=== PATIENT | male | born 1950 | race Caucasian/White ===

== ENCOUNTER 2024-07-26 11:55 | Outpatient (AMB) | payer MEDICARE, SELFPAY ==
--- NOTE | 2024-07-26 11:58 | A.OFFVIS_ITS ---
Vital Signs 07/26/24 12:00 Height 5 ft 10 in Weight 210 lb BMI 30.1 BP 140/68 H Blood Pressure Location Lt brachial Position Sitting Respiration 16 Pulse 64 Pulse Source Pulse Oximeter Pulse Oximetry (%) 98 Oxygen Delivery Method Room Air Intake Visit Reasons: Headaches/neck pain Senior Abap Developer Required: No Allergies amlodipine [From Norvasc] Allergy (Unknown, Verified 07/26/24 12:02) BLISTERS azathioprine [From IMURAN] Allergy (Unknown, Verified 07/26/24 12:02) PARANOIA,SEVERE REACTION,N/V oxycodone [From PERCOCET] Allergy (Unknown, Verified 07/26/24 12:02) ITCHING ALL OVER Medication List - Last Reconciled 07/26/24 by Dorene Thakur LPN aspirin (Adult Aspirin Regimen) 81 mg PO DAILY carbamazepine ER 200 mg PO BID duloxetine 60 mg PO DAILY folic acid 1 mg PO DAILY lorazepam 1 mg PO DAILY PRN methotrexate sodium 20 mg PO QWEEK metoprolol tartrate 25 mg PO DAILY metronidazole 250 mg PO DAILY mirabegron ER 50 mg PO DAILY pregabalin 150 mg PO DAILY ramelteon 8 mg PO BEDTIME rosuvastatin 20 mg PO DAILY tamsulosin 0.4 mg PO BEDTIME HPI HPI Headaches/neck pain: Details: History of Present Illness The patient is a 73-year-old male presenting with worsening chronic neck pain and headaches, along with seeking management for shoulder pain. The chronic neck pain started two years ago and has increased in severity, radiating to the shoulders and occipital region with an intensity rating of 9/10. It disrupts his daily routine, particularly at night and in late mornings. He also manages rheumatoid arthritis, diagnosed 25 years ago and linked with his longstanding Crohn's disease of 55 years. Treatments with methotrexate and multiple cortisone injections to ameliorate shoulder pain due to bilateral rotator cuff tears have yielded temporary relief. Other therapeutic trials, including physical therapy and acupuncture, were minimally beneficial. The etiology of his neuropathy, primarily affecting feet and toes, remains unidentified despite evaluations. His headaches, predating the other issues, are acute and sharp with frontal presentation. He currently takes pregabalin, carbamazepine, and duloxetine. Pain Description - Onset: Chronic neck pain began two years ago - Location: Neck region radiating toward shoulders and occipital area - Intensity: 9/10 in severity - Timing: Worse at night and late morning - Interference: Impairs daily activities and functioning - Treatments: Currently on pregabalin, carbamazepine, duloxetine; prior cortisone injections for rotator cuff tears - Shoulder pain due to bilateral rotator cuff tears - Neuropathy in both feet, sensations affecting toes, worsened by socks - Headaches: Sharp, frontal, episodic Physical Exam - Musculoskeletal- Limited range of motion observed in bilateral shoulders, right more than left; unable to extend beyond 80 degrees Results - Tests: MRI and X-ray results of neck and brain, information not detailed in conversation Pain Management - Affect: Pain affects daily life, causing significant functional impairment - Analgesia: Current regimen includes pregabalin, carbamazepine, duloxetine, and frequent use of acetaminophen - Adverse Effects: No specific adverse effects noted - Activities of Daily Living: Difficulty performing routine activities; lacks strength; struggles with nurseryperson functions - Aberrant Drug Related Behaviors: No indication of misuse; adherence to medication regimen noted Physical Exam Vital Signs: Last Vital Signs Pulse 64 07/26/24 12:00 Resp 16 07/26/24 12:00 BP 140/68 H 07/26/24 12:00 Pulse Ox 98 07/26/24 12:00 Oxygen Delivery Method Room Air 07/26/24 12:00 BMI result Body Mass Index 30.1 Assessment & Plan Assessment & Plan (1) Cervical spinal stenosis: Code(s): M48.02 - Spinal stenosis, cervical region Category: Medical Plan Plan Administer a right shoulder injection targeting the supraspinatus and AC joint with ultrasound guidance. An MRI of the cervical spine is warranted for assessment of potential nerve compression. Continuing with cortisone injections is an option discussed, along with potential peripheral nerve stimulation. For headaches, the current medication regimen will continue, considering future interventions if necessary. Coordination with Dr. Jones for rheumatoid arthritis management is advised to evaluate potential adjustments. The approach was agreed upon, with careful attention to the risks associated with cortisone use. Patient was informed and verbally consented to the use of an ambient scribe for clinic note documentation during this visit. Discussion Notes I explained to the patient the likely contributors to his symptoms, including potential nerve compression and the role of inflammation in his rheumatoid arthritis and shoulder pain. Management options discussed include targeted cortisone injections and peripheral nerve stimulation, with risks such as cortisone-related side effects explained comprehensively. I also addressed the patient's current regimen for headaches, touching upon the potential for nerve blocks if needed. Diagnostic follow-ups with MRI imaging and discussions with his production supervisor trainee about arthritis management were recommended for a holistic approach. He understands and consents to the planned interventions and follow- ups outlined. Patient Instructions - Schedule and attend the MRI of the cervical spine - Continue current medication regimen - Stay alert to call for an appointment for the right shoulder injection - Follow up with Dr. Dietrich for rheumatoid arthritis management - Monitor for any changes in symptoms or medication side effects - Report any increase in pain or new neurological symptoms immediately - Avoid high-dosage of acetaminophen to prevent potential rebound headaches - Use prescribed medications as directed; avoid additional analgesics unless advised Orders: Orders MR cervical spine wo con 07/26/24 M48.02 - Spinal stenosis, cervical region Coding Level of Care Code New Pt Level 4 (99231) Diagnoses Cervical spinal stenosis M48.02
[2024-07-26 12:00] VITALS: BP 140/68; PULSE 64; RESP 16; O2SAT 98; BMI 30.1
--- OUTSIDE RECORDS SUMMARY | 2024-07-26 13:56 | XMS_ITS | Encounter Summary ---
Author Organization [facility] Address [address] [address] Phone Care Team Providers Care Machinery Engineer Name Role Phone Don Escalante MD Primary Care Provider [phone] Encounter Details Date Type Department Care Team ([facility] st Contact Info) Description 03/28/2023 Procedure Pass [facility] [address] [place] [address] Social History Tobacco Use Types Packs/Day Years Used Date Smoking Tobacco: Never Alcohol Use Standard Drinks/Week Comments No 0 (1 standard drink = 0.6 oz pur e alcohol) Education Answer Date Recorded Are you interested in more education? Not on shasta e 08/19/2022 Are you concerned about learning? Not on file 08/19/2022 No 08/19/2022 No 08/19/2022 Digital Access Answer Date Recorded No 09/19/2022 No 09/19/2022 Reliable internet access at home? Not on file 09/19/2022 Device with a working camera? Not on file Sex and Gender Information Value Date Recorded Sex Assigned at Male 01/23/2023 2:12 PM EDT Gender Identity Male 01/23/2023 2:12 PM EDT Sexual Orientation Straight 01/23/2023 2: 12 PM EDT documented as of this encounter Plan of Treatment Not on file documented as of this encounter Visit Diagnoses Not on filedocumented in this encounter Additional Health Concerns Infection Onset Date Last Indicated Resolved Time CDiff-Risk 09/09/2023 09/09/2023 09/09/2023 2:54 PM EDT documented as of this encounter Care Teams Machinery Engineer Relationship Specialty Start Date End Date Don Escalante MD [address] [place] [id number] PCP - General Internal Medicine 01/23/23 documented as of this encounter Additional Source Comments The information contained in this document represents components of the legal health record. It is not the complete legal health record.[facility]
--- OUTSIDE RECORDS SUMMARY | 2024-07-26 13:56 | XMS_ITS | Encounter Summary ---
Author Organization [facility] Address [address] [employer] [facility] [address] [place] [address] Phone Care Team Providers Care Fire Alarm Repairer Name Role Phone Don Escalante MD Primary Care Provider [phone] Encounter Details Date Type Department Care Team (Late st Contact Info) Description 09/05/[address] [facility] [address] [place] [address] Social History Tobacco Use Types Packs/Day Years [...] with a working camera? Not on file Intimate Partner Violence Answer Date R ecorded Are you denied basic needs s uch as food, clothing, or medical care? No 09/05/2023 In the past 12 months have y ou been in a relationship with a person who hurts, threatens, or tries to control you? No 09/05/2023 Are you denied basic needs s uch as food, clothing, or medical care? No 09/05/2023 In the past 12 months have y ou been in a relationship with a person who hurts, threatens, or tries to control you? No 09/05/2023 Sex and Gender Information Value Date Recorded [...] documented as of this encounter Care Teams Fire Alarm Repairer Relationship Specialty Start Date End Date Don Escalante MD [address] [place] [address] PCP - General Internal Medicine 01/23/23 documented as of this encounter Additional Source Comments The information contained in this document represents components of the legal health record. It is not the complete legal health record.[facility]
--- OUTSIDE RECORDS SUMMARY | 2024-07-26 13:56 | XMS_ITS | Encounter Summary ---
Author Organization [facility] Address [address] [employer] [facility] [address] [place] [address] Phone Care Team Providers Care Company Truck Driver Name Role Phone Don Escalante MD Primary Care Provider [phone] Encounter Details Date Type Department Care Team (Late st Contact Info) Description 06/29/2023 Procedure Pass [address] [address] Social History Tobacco Use Types Packs/Day Years [...] documented as of this encounter Care Teams Company Truck Driver Relationship Specialty Start Date End Date Don Escalante MD [address] [place] [address] [place] [id number] PCP - General Internal Medicine 01/23/23 documented as of this encounter Additional Source Comments The information contained in this document represents components of the legal health record. It is not the complete legal health record.[facility]
--- OUTSIDE RECORDS SUMMARY | 2024-07-26 13:56 | XMS_ITS | Encounter Summary ---
Author Organization [facility] Address [address] [employer] [facility] [address] [place] [address] Phone Care Team Providers Care Pulmonary Care Nurse Name Role Phone Don Escalante MD Primary Care Provider [phone] Encounter Details Date Type Department Care Team (Late st Contact Info) Description 03/28/2023 Procedure Pass [facility] [address] [place] [address] Social History Tobacco Use Types Packs/Day Years [...] documented as of this encounter Care Teams Pulmonary Care Nurse Relationship Specialty Start Date End Date Don Escalante MD [address] [place] [address] [place] [id number] PCP - General Internal Medicine 01/23/23 documented as of this encounter Additional Source Comments The information contained in this document represents components of the legal health record. It is not the complete legal health record.[facility]
--- OUTSIDE RECORDS SUMMARY | 2024-07-26 13:56 | XMS_ITS | Encounter Summary ---
Author Organization [facility] Address [address] [place] [address] Care Team Providers Care Telephone Maintainer Name Role Phone Don Escalante MD Primary Care Provider [phone] Encounter Details Date Type Department Care Team (Late st Contact Info) Description 07/23/2024 Lab Requisition [facility] [address] [facility] [place] [phone] Gianni Jones MD [address] [place] [phone] Rheumatoid arthritis, unspecified Social History Tobacco Use Types Packs/Day Years Used Date Smoking Tobacco: Never Smokeless Tobacco: Never Alcohol Use Standard Drinks/Week Comments No 0 (1 standard drink = 0.6 oz pur e alcohol) Sex and Gender Information Value Date Recorded Sex Assigned at Male 05/28/2024 10:57 AM EST Legal Sex Male 6:21 AM EST Gender Identity Male 05/28/2024 10:57 AM EST Sexual Orientation Straight 05/28/2024 10 :57 AM EST documented as of this encounter Plan of Treatment Upcoming Encounters Date Type Department Care Team (Late st Contact Info) Description 09/17/2024 11:30 AM EDT Appointment [facility] [address] [phone] documented as of this encounter Procedures Procedure Name Priority Date/Time Associated Diagnosis Comments SST - GOLD Routine 07/23/2024 12:05 PM EDT Rheumatoid arthritis, unspecified CBC WITH AUTO DIFFERENTIAL Routine 07/23/2024 12:05 PM EDT Rheumatoid arthritis, unspecified CREATININE, SERUM Routine 07/23/2024 12: 05 PM EDT Rheumatoid arthritis, unspecified SEDIMENTATION RATE Routine 07/23/2024 12 :05 PM EDT Rheumatoid arthritis, unspecified CBC AND DIFFERENTIAL Routine 07/23/2024 12:05 PM EDT Rheumatoid arthritis, unspecified C-REACTIVE PROTEIN Routine 07/23/2024 12 :05 PM EDT Rheumatoid arthritis, unspecified ALANINE AMINOTRANSFERASE Routine 025 12:05 PM EDT Rheumatoid arthritis, unspecified ASPARTATE AMINOTRANSFERASE Routine 07/23/2024 12:05 PM EDT Rheumatoid arthritis, unspecified ALBUMIN Routine 07/23/2024 12:05 PM EDT Rheumatoid arthritis, unspecified documented in this encounter Results * SST tube (07/23/2024 12:05 PM EDT) Pathologist [facility] Extra Tube Hold for add-ons. 07/23/2024 3:01 PM EDT [facility] Comment:Auto resulted. Blood Venous blood specimen / Unknown 07/23/2024 12:05 PM EDT 07/23/2024 1:38 PM EDT us Gianni Jones MD LAB BLOOD ORDERABLES Final Resu lt [facility] [address] [place] [address], * (ABNORMAL) CBC auto differential (07/23/2024 12:05 PM EDT) WBC 6.6 4.8 - 10.8 K/mcL LAB HEMETOLOGY METHOD 07/23/2024 1:53 PM [facility] RBC 3.80(L) 4.50 - 5.50 M/mcL LAB HEMETOLOGY METHOD 07/23/2024 1:53 PM [facility] Hemoglobin 13.3(L) 13.5 - 17.5 g/dL LAB HEMETOLOGY METHOD 07/23/2024 1:53 PM [facility] Hematocrit 37.9(L) 42.0 - 54.0 % LAB HEMETOLOGY METHOD 07/23/2024 1:53 PM [facility] MCV 100.8(H) 79.0 - 98.0 FL LAB HEMETOLOGY METHOD 07/23/2024 1:53 PM [facility] MCH 35.4(H) 27.0 - 32.0 pcg LAB HEMETOLOGY METHOD 07/23/2024 1:53 PM [facility] MCHC 35.1 32.0 - 37.0 g/dL LAB HEMETOLOGY METHOD 07/23/2024 1:53 PM [facility] RDW 12.8 11.0 - 15.0 % LAB HEMETOLOGY METHOD 07/23/2024 1:53 PM [facility] Platelets 233 130 - 400 K/mcL LAB HEMETOLOGY METHOD 07/23/2024 1:53 PM [facility] MPV 9.8 7.0 - 11.0 FL LAB HEMETOLOGY METHOD 07/23/2024 1:53 PM [facility] NRBC 0.0 <1.0 % LAB HEMETOLOGY METHOD 07/23/2024 1:53 PM [facility] NRBC Absolute 0.00 <0.10 K/mcL LAB HEMETOLOGY METHOD 07/23/2024 1:53 PM [facility] Neutrophils Relative 67.8 % LAB HEMETOLOGY METHOD 07/23/2024 1:53 PM EDT [facility] Lymphocytes Relative 21.9 % LAB HEMETOLOGY METHOD 07/23/2024 1:53 PM EDT [facility] Monocytes Relative 7.0 % LAB HEMETOLOGY METHOD 07/23[facility]2024 [facility] Eosinophils Relative 2.7 % LAB HEMETOLOGY METHOD 07/23/2024 1:53 [facility] Basophils Relative 0.3 % LAB HEMETOLOGY METHOD 07/23/2024 1:53 [facility] Immature Granulocytes Relative 0.3 % LAB HEMETOLOGY METHOD 07/23/2024 1:53 PM [facility] Neutrophils Absolute 4.46 1.50 - 7.00 K/mcL LAB HEMETOLOGY METHOD 07/23/2024 1:53 PM [facility] Lymphocytes Absolute 1.44 1.00 - 5.00 K/mcL LAB HEMETOLOGY METHOD 07/23/2024 1:53 [facility] Monocytes Absolute 0.46 0.20 - 1.00 K/mcL LAB HEMETOLOGY METHOD 07/23/2024 1:53 PM [facility] Eosinophils Absolute 0.18 0.00 - 0.50 K/mcL LAB HEMETOLOGY METHOD 07/23/2024 1:53 PM [facility] Basophils Absolute 0.02 0.00 - 0.20 K/mcL LAB HEMETOLOGY METHOD 07/23/2024 1:53 PM [facility] Immature Granulocytes Absolute 0.02 0.00 - 0.03 K/mcL LAB HEMETOLOGY METHOD 07/23/2024 1:53 PM [facility] Blood Venous blood specimen / Unknown 07/23/2024 12:05 PM EDT 07/23/2024 1:38 PM EDT us Gianni Jones MD LAB BLOOD ORDERABLES Final Resu lt Performing Organization Address [facility]/ZIP Co de Phone Number [facility] [address] [place] [address], [place] [phone] * Alanine aminotransferase (07/23/2024 12:05 PM EDT) ALT (SGPT) 40 10 - 60 unit/L LAB CHEMISTRY METHOD 07/23/2024 4:53 PM EDT [facility] Blood Venous blood specimen / Unknown 07/23/2024 12:05 PM EDT 07/23/2024 1:38 PM EDT us Gianni Jones MD LAB BLOOD ORDERABLES Final Resu lt Performing Organization Address [facility] Co de Phone Number [facility] [address] [place] [address], [place] [phone] * Aspartate aminotransferase (07/23/2024 12:05 PM EDT) AST (SGOT) 22 10 - 42 unit/L LAB CHEMISTRY METHOD 07/23/2024 5:09 PM EDT [facility] Blood Venous blood specimen / Unknown 07/23/2024 12:05 PM EDT 07/23/2024 1:38 PM EDT us Gianni Jones MD LAB BLOOD ORDERABLES Final Resu lt Performing Organization Address [facility]/ZIP Co de Phone Number [facility] [address] [place] [address], [place] [phone] * Albumin (07/23/2024 12:05 PM EDT) Albumin 3.8 3.2 - 5.0 g/dL LAB CHEMISTRY METHOD 07/23/2024 4:53 PM EDT [facility] Blood Venous blood specimen / Unknown 07/23/2024 12:05 PM EDT 07/23/2024 1:38 PM EDT us Gianni Jones MD LAB BLOOD ORDERABLES Final Resu lt Performing Organization Address [facility] Co de Phone Number [facility] [address] [place] [address], [place] [phone] * Creatinine (07/23/2024 12:05 PM EDT) Creatinine 0.82 0.70 - 1.30 mg/dL LAB CHEMISTRY METHOD 07/23/2024 4:53 PM EDT [facility] eGFR 93 >=60 mL/min/1. 73m2 LAB CHEMISTRY METHOD 07/23/2024 4:53 PM EDT [facility] Comment:Calculation based on the??Chronic Kidney Disease Epidemiology Collaboration (CKD-EPI) equation refit??without adjustment for race. Blood Venous blood specimen / Unknown 07/23/2024 12:05 PM EDT 07/23/2024 1:38 PM EDT us Gianni Jones MD LAB BLOOD ORDERABLES Final Resu lt Performing Organization Address [facility] Co de Phone Number [facility] [address] [place] [address], [place] [phone] * C-reactive protein (07/23/2024 12:05 PM EDT) C-Reactive Protein <0.29 <=0.50 mg/dL LAB CHEMISTRY METHOD 07/23/2024 4:53 PM EDT [facility] Blood Venous blood specimen / Unknown 07/23/2024 12:05 PM EDT 07/23/2024 1:38 PM EDT us Gianni Jones MD LAB BLOOD ORDERABLES Final Resu lt Performing Organization Address City/State/[facility] Co de Phone Number [facility] [address] [place] [address], [place] [phone] * Sedimentation rate (07/23/2024 12:05 PM EDT) Sed Rate 11 0 - 20 mm/hr LAB HEMETOLOGY METHOD 07/23/2024 2:16 PM EDT [facility] Blood Venous blood specimen / Unknown 07/23/2024 12:05 PM EDT 07/23/2024 1:38 PM EDT Gianni Jones MD LAB BLOOD ORDERABLES Final Resu lt Performing Organization Address [facility] Co de Phone Number [facility] [address] [place] [address], documented in this encounter Visit Diagnoses Diagnosis Rheumatoid arthritis, unspecified documented in this encounter Care Teams Telephone Maintainer Relationship Specialty Start Date End Date Don Escalante MD [address] [place], [place] [address] [address] PCP - General Internal Medicine 04/02/24 documented as of this encounter
--- OUTSIDE RECORDS SUMMARY | 2024-07-26 13:56 | XMS_ITS | Clinical Summary ---
Author Organization [facility] Address [address] [address] Phone Care Team Providers Care Lacquer Maker Name Role Phone Don Escalante MD Primary Care Provider [phone] Allergies Active Allergy Reactions Criticality Noted Date Comments Imuran (Azathioprine) 03/31/2016 Norvasc (Amlodipine) 03/31/2016 Percocet (Oxycodone-Acetaminophen) 1 06/01/2015 Medications Medication Sig Dispensed Refills Start Date End Date Status metroNIDAZOLE (FLAGYL) 250 MG tablet Take 250 mg by mouth daily. Active rosuvastatin (CRESTOR) 20 MG tablet Take 20 mg by mouth daily. Active omeprazole (PRILOSEC) 20 MG capsule Take 20 mg by mouth 2 (two) times a day. Active cholecalciferol (VITAMIN D3) 1,000 unit tablet Take 1,000 Units by mouth 2 (two) times a day. Active DOCOSAHEXANOIC ACID/EPA (FISH OIL ORAL) Take 1,200 mg by mouth 2 (two) times a day. Active multivitamins with minerals- folic acid-lycopene (MEN'S ONE-A-DAY) 400-300 mcg Tab Take 1 tablet by mouth daily. Active CALCIUM CARBONATE/VITAMIN D3 (CALCIUM 600 + D,3, ORAL) Take by mouth daily. Active ascorbic acid, vitamin C, (VITAMIN C) 500 MG tablet Take 1,000 mg by mouth daily. Active folic acid (FOLVITE) 1 MG tablet Take 1 mg by mouth every morning. Active fluoride, sodium, (PREVIDENT 5000 BOOSTER) 1.1 % Pste 12/05/2022 Activ e lactulose bulk (CONSTULOSE) 10 gram/15 mL solution 10 g 2 (two) times a day. 01/13/2023 Active metoprolol tartrate (LOPRESSOR) 25 MG tablet Take 25 mg by mouth 2 (two) times a day. 01/30/2023 Active tamsulosin (FLOMAX) 0.4 mg Cap 0.4 mg nightly at bedtime. 02/01/2023 Active TYRVAYA 0.03 mg/spray sprm daily. 01/26/2023 Active psyllium (KONSYL) Pack Take 1 packet by mouth 3 (three) times a day. Active aspirin 81 mg chewable tablet Take 1 tablet (81 mg total) by mouth daily. 03/31/2023 Active acetaminophen (TYLENOL) 325 mg tablet Take 2 tablets (650 mg total) by mouth every 6 (six) hours as needed. 0 03/29/2023 Active pregabalin (LYRICA) 150 MG capsule Take 150 mg by mouth 2 (two) times a day. 08/15/2023 Active DULoxetine (CYMBALTA) 60 MG capsule Take 60 mg by mouth 2 (two) times a day. 08/20/2023 Active mineral oil liquid Take 30 mL by mouth daily as needed for constipation. Active ramelteon (ROZEREM) 8 mg tablet Take 8 mg by mouth nightly at bedtime. 08/02/2023 Active alpha lipoic acid 300 mg Cap Take 600 mg by mouth nightly at bedtime. Active LORazepam (ATIVAN) 1 MG tablet Take 1 mg by mouth every 6 (six) hours as needed. 09/01/2023 Active mirabegron (MYRBETRIQ) 50 mg Tb24 Take 50 mg by mouth nightly at bedtime. 08/25/2023 Active methotrexate 2.5 MG Oral tablet Take 20 mg by mouth once a week. 08/20/2023 Active memantine (NAMENDA) 10 MG tablet Take 10 mg by mouth 2 (two) times a day. 08/16/2023 Active melatonin 10 mg Tab Take 30 mg by mouth nightly at bedtime. Active furosemide (LASIX) 40 MG tablet Take 40 mg by mouth daily. Active traZODone (DESYREL) 50 MG tablet Take 1 tablet (50 mg total) by mouth nightly at bedtime as needed (insomnia). 7 tablet 09/14/2023 Active polyethylene glycol (MIRALAX) 17 gram packet Take 17 g by mouth daily. 20 packet 09/14/2023 Active bisacodyl (DULCOLAX) 5 mg EC tablet Take 1 tablet (5 mg total) by mouth daily as needed for constipation. 20 tablet 09/14/2023 Active Active Problems Problem Noted Date Diagnosed Date Leg pain 09/05/2023 Lumbar foraminal stenosis 03/28/2023 CAD (coronary artery disease) 03/21/2023 Crohn's disease 03/21/2023 Adjustment disorder with anxiety 02/15/2023 02/15/2023 Arteriosclerosis of coronary artery 02/15/2023 02/15/2023 BPH (benign prostatic hyperplasia) 02/15/2023 02/15/2023 GERD (gastroesophageal reflux disease) 02/15/2023 Hyperlipidemia 02/15/2023 02/15/2023 Hypertension 02/15/2023 02/15/2023 Myocardial infarction 02/15/2023 02/15/2023 Neuropathy 02/15/2023 02/15/2023 Rheumatoid arthritis 02/15/2023 02/15/2023 Other fatigue 07/22/2022 02/15/2023 Crohn disease 10/15/2021 02/15/2023 Social History Tobacco Use Types Packs/Day Years Used Date Smoking Tobacco: Never Tobacco Cessation:Counseling Given: Not Answered Alcohol Use Standard Drinks/Week Comments No 0 [...] Orientation Straight 01/23/2023 2: 12 PM EDT Last Filed Vital Signs Vital Sign Reading Time Taken Comments Blood Pressure 109/69 09/14/2023 1:35 PM EDT Pulse 98 09/14/2023 1:35 PM EDT Temperature 36.7 ??C (98 ??F) 09/14/2023 1:35 PM EDT Respiratory Rate 18 09/14/2023 1:35 PM EDT Oxygen Saturation 100% 09/14/2023 1:35 PM EDT Inhaled Oxygen Concentration - - Weight 91.2 kg (201 lb) 12/06/2023 1:02 PM EDT Height 177.8 cm (5' 10 ) 12/06/2023 1:02 PM EDT Body Mass Index 28.84 12/06/2023 1:02 PM EDT Plan of Treatment Health Maintenance Due Date Last Done Comments DEPRESSION SCREENING 1962 HEPATITIS C SCREENING 1968 ZOSTER VACCINES (1 of 2) 1969 COLOGUARD 09/16/1995 COLONOSCOPY 09/16/1995 COLORECTAL CANCER SCREENING 09/16/1995 FIT TEST 09/16/1995 FOBT 09/16/1995 SIGMOIDOSCOPY 09/16/1995 VIRTUAL COLONOSCOPY 09/16/1995 Adult Td,Tdap Booster 08/27/2020 08/27/2010, 000 BLOOD PRESSURE 08/17/2023 02/15/2023 INFLUENZA VACCINE (#1) 2023 , 02/07/2022, 01/02/2021, Additional history exists COVID-19 VACCINE ( season) 2023 01/23/2023, 02/07/2022, 08/16/2021, Additional history exists PNEUMOCOCCAL VACCINES (50+ years) Completed 04/02/2018, 07/15/2014, 03/10/2010 RSV VACCINE Completed 05/26/2023 SMOKING STATUS SCREENING (Once After 26 Yrs) Completed 12/06/2023 HEPATITIS A VACCINES Aged Out No long er eligible based on patient's age to complete this topic HIB VACCINES Aged Out No longer eligi ble based on patient's age to complete this topic MENINGOCOCCAL VACCINES (ACWY) Aged Out No longer eligible based on patient's age to complete this topic Medical Devices Implanted Type Area Patient Financial Rep Device Identifier Shelf Expiration Date Model / Serial / Lot Spine Lonny 5.5x45mm Expedium Titanium Curved Lordotic Line Thoracolumbar - [id number] Implanted:Qty: 2 on 09/05/2023 by Mega Peterson MD at [facility] N/A: Back [facility] DEPUY SYNTHES SPINE 09/05/2023 [id number] / / Coronary Stent Pliafx Prime 5.0cc Freeze Dried - [id number] Implanted:Qty: 1 on 09/05/2023 by Mega Peterson MD at [facility] N/A: Back [facility] [id number] 04/07/2028 BL-1800-05 / [id number] / [id number] Screw Spinal 7x40mm Polyaxial Expedium Verse 5.5 - [id number] Implanted:Qty: 1 on 09/05/2023 by Mega Peterson MD at [facility] N/A: Back [facility] DEPUY SYNTHES SPINE [id number] / / Screw Spinal 7x45mm Polyaxial Expedium Verse 5.5 - [id number] Implanted:Qty: 1 on 09/05/2023 by Mega Peterson MD at [facility] N/A: Back [employer] DEPUY SYNTHES SPINE [id number] / / Screw Spinal 7x50mm Polyaxial Expedium Verse 5.5 - [id number] Implanted:Qty: 1 on 09/05/2023 by Mega Peterson MD at [facility] N/A: Back [facility] DEPUY SYNTHES SPINE [id number] / / Screw Implanted:Qty: 1 on 09/05/2023 by Mega Peterson MD at [facility] N/A: Back DEPUY SPINE Depuy Spine Caps Implanted:Qty: 4 on 09/05/2023 by Mega Peterson MD at [facility] Bilater al: Back 09/05/2023 / [id number] / Depuy Spine Implanted:Qty: 1 on 09/05/2023 by Mega Peterson MD at [facility] N/A: Back 09/05/2023 / [id number] / Advance Directives For more information, please contact: [phone] (9AM - 5PM [facility], Monday-Monday) Documents on File Type Date Recorded Patient Gis Database Administrator Expl anation Healthcare Proxy 09/05/2023 * Full Code (Latest Code Status on File) Date Activated Date Inactivated Comments 03/28/2023 8:10 PM Question Answer Comments Code Status Confirmed With: Patient Care Teams Lacquer Maker Relationship Specialty Start Date End Date Don Escalante MD [address] [place] [address] [place]E [address] PCP - General Internal Medicine 01/23/23 Additional Source Comments The information contained in this document represents components of the legal health record. It is not the complete legal health record.[facility]
--- OUTSIDE RECORDS SUMMARY | 2024-07-26 13:56 | XMS_ITS | Encounter Summary ---
Author Organization [facility] Address [address] [facility] [address] [place] [address] Phone Care Team Providers Care Insecticide Supervisor Name Role Phone Don Escalante MD Primary Care Provider [phone] Encounter Details Date Type Department Care Team (Late st Contact Info) Description 02/16/2023 Telephone [facility] Department of Neurosurgery [address] [place] [address] Aniket Rome [address] [place] [address] [email or web address] Social History Tobacco Use Types Packs/Day Years [...] documented as of this encounter Care Teams Insecticide Supervisor Relationship Specialty Start Date End Date Don Escalante MD [address] [place] [address] PCP - General Internal Medicine 01/23/23 documented as of this encounter Additional Source Comments The information contained in this document represents components of the legal health record. It is not the complete legal health record.[facility]
--- OUTSIDE RECORDS SUMMARY | 2024-07-26 13:56 | XMS_ITS | Encounter Summary ---
Author Organization [facility] Address [address] [place] [address] Care Team Providers Care Floor Representative Name Role Phone Don Escalante MD Primary Care Provider [phone] Encounter Details Date Type Department Care Team [...] shoulder and reports he has ripped tendons. Hasa follow up w . Medications, allergies, and assessment reviewed. RIGHT upper [...] Info) Description 09/17/2024 11:30 AM EDT Appointment [facility] [address] [phone] documented as of this encounter Visit Diagnoses Not on filedocumented in this encounter Care Teams Floor Representative Relationship Specialty Start Date End Date Don Escalante MD PCP - General Internal Medicine 05/11/21 04/01/24 documented as of this encounter
--- OUTSIDE RECORDS SUMMARY | 2024-07-26 13:56 | XMS_ITS | Clinical Summary ---
Author Organization [facility] Address [address] [place] [address] Care Team Providers Care Customer Retention Specialist Name Role Phone Don Escalante MD Primary Care Provider [phone] Allergies Active Allergy Reactions Criticality Noted Date Comments Amlodipine 10/15/2021 Other reaction(s): HUGE BLISTER BOTH FEET EDEMA Azathioprine High 10/15/2021 Other reaction(s): high fever Oxycodone-Acetaminophen High 10/15/2021 Other reaction(s): itchy all over Medications Medication Sig Dispensed Refills Start Date End Date Status metyraPONE (Metopirone) 250 MG capsule Take 25 mg by mouth 2 (two) times a day. 0 04/06/2020 Active pregabalin (LYRICA) capsule 150 mg Take 150 mg by mouth. 0 04/06/2020 Active DULoxetine (CYMBALTA) DR capsule 30 mg 0 09/21/2021 Active folic acid (FOLVITE) tablet 1 mg 0 10/02/2021 Active metroNIDAZOLE (FLAGYL) 250 MG tablet 0 09/28/2021 Active rosuvastatin (CRESTOR) tablet 20 mg 0 08/05/2021 Active LORazepam (ATIVAN) 1 MG tablet 0 10/04/2021 Active aspirin 81 MG chewable tablet Chew 81 mg by mouth daily. 0 Active Active Problems Problem Noted Date Diagnosed Date Crohn disease 10/15/2021 Social History Tobacco Use Types Packs/Day Years Used Date Smoking Tobacco: Never Assessed Sex and Gender Information Value Date Recorded Sex Assigned at Male 10/12/2021 10:28 AM EDT Gender Identity Not on file Sexual Orientation Not on file Job Start Date Occupation Industry Not on file Not on file Not on file Last Filed Vital Signs Vital Sign Reading Time Taken Comments Blood Pressure 135/70 02/06/2024 11:02 AM EDT Pulse 68 02/06/2024 11:02 AM EDT Temperature 36.7 ??C (98 ??F) 02/06/2024 11:02 AM EDT Respiratory Rate 18 12/12/2023 11:15 AM EDT Oxygen Saturation 100% 02/06/2024 11:02 AM EDT Inhaled Oxygen Concentration - - Weight 93 kg (205 lb) 02/06/2024 11:02 AM EDT PE R PT Height 177.8 cm (5' 10 ) 08/22/2023 11:03 AM EDT Body Mass Index 29.41 08/22/2023 11:03 AM EDT Plan of Treatment Health Maintenance Due Date Last Done Comments Hepatitis C Screening 1950 COVID-19 Vaccine (#1) 03/18/1951 Depression Screening 1962 Preventative Health Evaluation 1968 Colon Cancer Screening (Colonoscopy) 09/16/1995 Shingrix-Zoster Vaccine (1 of 2) 2000 Fall Risk Assessment 09/16/2015 DTap / Tdap / Td (2 - Td or Tdap) 08/27/2020 08/27/2010 RSV Adult > 60+ Yrs or (1 - 1-dose 75+ series) 2025 Pneumococcal Vaccine Completed 04/02/2018, 07/15/2014, 03/10/2010 Influenza Vaccine Completed 12/28/2023, , 01/31/2018, Additional history exists Hepatitis B Vaccines Aged Out No long er eligible based on patient's age to complete this topic RSV Ped < 20 months Aged Out No longe r eligible based on patient's age to complete this topic Care Teams Customer Retention Specialist Relationship Specialty Start Date End Date Don Escalante MD [address] [facility] [place] [address] PCP - General Internal Medicine 06/27/23
--- OUTSIDE RECORDS SUMMARY | 2024-07-26 13:56 | XMS_ITS | Encounter Summary ---
Author Organization [facility] Address [address] [employer] [facility] [address] [place] [address] Phone Care Team Providers Care Truck Service Technician Name Role Phone Don Escalante MD Primary Care Provider [phone] Encounter Details Date Type Department Care Team (Late st Contact Info) Description 09/05/2023 Procedure Pass [facility] [address] [place] [address] Social History Tobacco Use Types Packs/Day Years [...] documented as of this encounter Care Teams Truck Service Technician Relationship Specialty Start Date End Date Don Escalante MD [address] [place] [address] PCP - General Internal Medicine 01/23/23 documented as of this encounter Additional Source Comments The information contained in this document represents components of the legal health record. It is not the complete legal health record.[facility]
--- OUTSIDE RECORDS SUMMARY | 2024-07-26 13:56 | XMS_ITS | Encounter Summary ---
Author Organization [facility] Address [address] [place] [address] Care Team Providers Care Vocational Adviser Name Role Phone Don Escalante MD Primary Care Provider [phone] Reason for Visit * Reason Onset Date Comments Results 07/26/2024 Encounter Details Date Type Department Care Team (Late st Contact Info) Description 07/26/2024 Telephone Internal Medicine - [facility] [address] [facility] [place] [phone] Dee Tracy [place] Results Social History Tobacco Use Types Packs/Day Years [...] AM EST documented as of this encounter Progress Notes * Don Escalante MD - 07/26/2024 11:48 AM EDT No he doesn't. He can take OTC Vit b 12 supplement for maintenance. * Dee Tracy MA - 07/26/2024 10:16 AM EDT Spoke with patient, he is inquiring if he still needs the B12 injections given his results from 07/23. Please advise. documented in this encounter Plan of Treatment Upcoming Encounters Date Type Department Care Team (Late st Contact Info) Description 09/17/2024 11:[address] [facility] [address] [place] [address] documented as of this encounter Visit Diagnoses Not on filedocumented in this encounter Care Teams Vocational Adviser Relationship Specialty Start Date End Date Don Escalante MD [facility] [place] [address] PCP - General Internal Medicine 04/02/24 documented as of this encounter
--- OUTSIDE RECORDS SUMMARY | 2024-07-26 13:56 | XMS_ITS | Encounter Summary ---
Author Organization [facility] Address [address] [address] Phone Care Team Providers Care Automobile Body Customizer Name Role Phone Don Escalante MD Primary Care Provider [phone] Encounter Details Date Type Department Care Team (Late st Contact Info) Description 09/05/2023 Procedure Pass [facility] Periop [address] [place] [address] Social History Tobacco Use Types Packs/Day Years [...] documented as of this encounter Care Teams Automobile Body Customizer Relationship Specialty Start Date End Date Don Escalante MD [address] [place] [address] PCP - General Internal Medicine 01/23/23 documented as of this encounter Additional Source Comments The information contained in this document represents components of the legal health record. It is not the complete legal health record.[facility]
--- OUTSIDE RECORDS SUMMARY | 2024-07-26 13:56 | XMS_ITS | Clinical Summary ---
Author Organization [facility] [place] [address] Phone Care Team Providers Care Bologna Lacer Name Role Phone Don Escalante MD Primary Care Provider [phone] Allergies Active Allergy Reactions Criticality Noted Date Comments Azathioprine High 05/28/2024 Amlodipine 05/28/2024 Lumps all over feet Medications lidocaine (LIDODERM) 5 % patch Place 1 patch on the skin. 4 Active lactulose (CHRONULAC) solution Take 15 mL (10 g total) by mouth 3 (three) times a day. 946 mL 11 4 Active metroNIDAZOLE (FLAGYL) 250 mg tablet TAKE ONE TABLET BY MOUTH EVERY DAY 30 tablet 5 4 Active rosuvastatin (CRESTOR) 20 mg tablet TAKE 1 TABLET BY MOUTH DAILY 90 tablet 1 4 Active metoprolol tartrate (LOPRESSOR) 25 mg tablet TAKE ONE TABLET BY MOUTH TWO TIMES A DAY 180 tablet 1 4 Active carBAMazepine (TEGretol) 200 mg tablet Take 1 tablet (200 mg total) by mouth 1 (one) time each day. 30 tablet 5 Active DULoxetine (CYMBALTA) [address] capsule Take 1 capsule (60 mg total) by mouth 2 (two) times a day. 60 capsule 5 Active pregabalin (LYRICA) 150 mg capsule Take 1 capsule (150 mg total) by mouth 2 (two) times a day. Max Daily Amount: 300 mg 60 capsule 5 Active ramelteon (ROZEREM) 8 mg tablet TAKE ONE TABLET BY MOUTH AT BEDTIME 90 tablet 5 Active LORazepam (ATIVAN) 1 mg tablet TAKE ONE TABLET BY MOUTH ONCE DAILY NEEDED FOR ANXIETY MAX 1 TABLET PER DAY 28 tablet 5 08/16/19 25 Active ramelteon (ROZEREM) 8 mg tablet TAKE ONE TABLET BY MOUTH AT BEDTIME 90 tablet 4 07/10/19 25 Discontinued LORazepam (ATIVAN) 1 mg tablet TAKE ONE TABLET BY MOUTH ONE TIME EACH DAY IF NEEDED FOR ANXIETY, FOR UP TO 28 DAYS. MAX DAILY AMOUNT = 1MG. 28 tablet 5 07/19/19 25 Discontinued Active Problems Problem Noted Date Diagnosed Date Peripheral neuropathy 04/26/2024 Overview (04/26/2024): DX:Peripheral neuropathy Rheumatoid arthritis 04/26/2024 Crohn's disease of colon without complication Idiopathic peripheral neuropathy 08/20/2019 Overview (04/26/2024): 09/2019: Possible side effect of metronidazole, metronidazole discontinued but then restated after recurrence of anal fistua. 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 CN 08/16/2011: no polyps; no active Crohn's; random bx: normal. GERD (gastroesophageal reflux disease) 9 Overview (04/26/2024): DX:GERD (gastroesophageal reflux disease); COMMENT: Long-standing heartburn and dysphagia. Complete relief of all symptoms after the initiation of omeprazole 20 mg once a day at the end of 2007. Long-standing heartburn and dysphagia. Complete relief of all symptoms after the initiation of omeprazole 20 mg once a day at the end of 2007. EGD 06/27/2011, solitary small erosion at the EGJ, not on PPI treatment. 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 Incision and drainage of perianal abscess 4.2 .02. Colonoscopy 07/24/2008, no visible disease, biopsies obtained: Negative. CN 08/16/2011, 2017: no polyps; no active Crohn's; random bx: normal. 10/09/17: Bowel resection for mesh related fistula; infliximab discontinued. Methotrexate continued. No active inflammatory bowel disease at surgery. 09/27/2019: Metronidazole discontinued, peripheral neuropathy as a possible side effect. Now following with [facility] GI- Dr De La Vega CAD (coronary artery disease) Overview (04/26/2024): DX:CAD (coronary artery disease); COMMENT: S/p Ant ID with VFib arrest 05/01- LAD stents placed- Liberte/Vison Encounters Date Type Department Care Team Description 07/26/2024 Telephone Internal Medicine - [address] [phone] Dee Tracy MA Results 07/23/2024 11:30 AM EDT Hospital Encounter [facility] [address] [facility] 2nd [place] [phone] Amber Infante MD Crohn's disease of colon without complication (CMS/HCC) (Primary Dx); B12 deficiency 07/23/2024 Lab Requisition [facility] [address] [facility] [place] [phone] Gianni Jones MD Rheumatoid arthritis, unspecified 07/16/2024 [facility] [phone] Eloisa Borges MA 06/28/2024 Telephone Internal Medicine - [address] [phone] Don Escalante MD Forms/questionnaires (Medical Clearance Form) 06/20/2024 Telephone Pediatrics - [address] [phone] Don Escalante MD Referral 05/28/2024 11:00 AM EST - 05/28/2024 11:59 PM EST Hospital Encounter [facility] [address] [phone] Amber Infante MD Crohn's disease of colon without complication ([facility]/HCC); Rheumatoid arthritis, involving unspecified site, unspecified whether rheumatoid factor present ([facility]); Muscle spasm; History of thyroid disease Discharge Disposition: Home or Self Care 05/28/2024 Lab Requisition [facility] [address] [facility] [place] [phone] Gianni Jones MD Rheumatoid arthritis, unspecified ([facility]/HCC) 05/13/2024 1:57 PM EST - 05/13/2024 11:59 PM EST Hospital Encounter [facility] [address] [place] [phone] Abnormal findings on diagnostic imaging of skull and head, not elsewhere classified Discharge Disposition: Home or Self Care 05/08/2024 2:08 PM EST - 05/08/2024 11:59 PM EST Hospital Encounter Ultrasound - [facility] [address] [place] [address] History of thyroid disease Discharge Disposition: Home or Self Care 05/08/2024 Telephone Agency Sales Development Associate - [facility] [address] [place] [phone] Don Escalante MD Request For Order(s) 05/02/2024 2:30 PM EST - 05/02/2024 11:59 PM EST Hospital Encounter Radiology Department - [address] [phone] Chronic tension-type headache, not intractable Discharge Disposition: Home or Self Care 04/30/2024 3:43 PM EST - 04/30/2024 11:59 PM EST Hospital Encounter Xray - [facility] [address] [place] [address] Neck pain on right side Discharge Disposition: Home or Self Care 04/30/2024 3:30 PM EST Office Visit Agency [facility] - [facility] [address] [place] [phone] Don Escalante MD Neck pain on right side (Primary Dx); Chronic tension-type headache, not intractable; Muscle spasm; Idiopathic progressive neuropathy; History of thyroid disease; Abnormal MRI of head from Last 3 Months Immunizations Name Administration Dates Next Due H1N1 Inj Preservative Free 03/06/2009 Influenza trivalent, 0.5mL ( Fluad) 65yo and older 12/28/2023,02/11/2020 Influenza trivalent, 0.5mL ( Fluzone High-dose) 65yo and older 01/31/2018,01/07/2016 Influenza trivalent, with pr eservative (Fluzone; Afluria) 6mo and older 01/27/2015,03/03/2014,01/01/2013,01/11,03/09/2011,03/10/2010,01/14/2009 ,02/18/2008,02/08/2007,03/23/2006,07/2004 Influenza, Unspecified 12/23/2021,01/07/2021 Moderna SARS-CoV-2 COVID-19, mRNA, LNP-S, preservative free 03/03/2021 PPD Test 07/06/2020, 7,03/24/2015,03/03,02/27/2013,02/15/2012,12/28/2010 ,01/25/2010,01/28/2009,01/29/2008,10/22,04/11/2007,04/10/2006, 6,03/22/2004,04/09/2003 Pneumococcal conjugate 13 va lent (Prevnar 13, PCV13) 2mo and older 07/15/2014 Pneumococcal polysaccharide 23 valent (Pneumovax 23) 2yo and older 04/02/2018,03/10/2010 Td Tetanus diptheria (Tdvax) 7yo and older 06/28/1999 Tdap Tetanus diptheria acell ular pertussis (Boostrix; Adacel) 7yo and older 08/27/2010 Surgical History Surgery Date Site/Laterality Comments CHOLECYSTECTOMY 10/2011 PROCEDURE: [facility] LAPAROSCOPY SURG CHOLECYSTECTOMY BOWEL RESECTION 1980 PROCEDURE: HISTORICAL BOWEL RESECTION; COMMENT: for SBO and Crohn's COLONOSCOPY 09/22/1999 PROCEDURE: HISTORICAL COLONOSCOPY; COMMENT: No dysplasia COLONOSCOPY 10/06/2004 PROCEDURE: HISTORICAL COLONOSCOPY; COMMENT: No dysplasia COLONOSCOPY 07/24/2008 PROCEDURE: HISTORICAL COLONOSCOPY; COMMENT: 2 colonic polyps: tubular adenoma x 2. COLONOSCOPY 08/16/2011 PROCEDURE: HISTORICAL COLONOSCOPY; COMMENT: no polyps; no active Crohn's; random bx: normal PROSTATE SURGERY 2010 PROCEDURE: HISTORICAL PROSTATE SURGERY UPPER GASTROINTESTINAL ENDOSCOPY 10/13/2015 PROCEDURE: [facility] UPPER GI ENDOSCOPY PERFORMED; COMMENT: Visually normal on ome 40 mg a day; esophageal bx: minimal histologic signs of reflux. OTHER SURGICAL HISTORY 11/2015 PROCEDURE: PORT, INDWELLING, IMP; COMMENT: for Remicade HERNIA REPAIR 12/15/2015 PROCEDURE: HISTORICAL HERNIA REPAIR/MARVIN; COM[place] [facility] [place]GICAL HISTORY 05/01/2016 PROCEDURE: ---- INCISE/DRAIN ----; COMMENT: [facility]; severe MRSA infection right thigh. COLONOSCOPY 09/05/2016 PROCEDURE: HISTORICAL COLONOSCOPY; COMMENT: No active Crohn's, no polyps, normal postoperative appearance. No dysplasia on bx. CATARACT EXTRACTION 01/2017 Right PROCEDURE: HISTORICAL CATARACT REMOVAL UPPER GASTROINTESTINAL ENDOSCOPY 06/27/2011 PROCEDURE: [facility] UPPER GI ENDOSCOPY PERFORMED; COMMENT: solitary small erosion at the EGJ, not on PPI treatment. COLONOSCOPY 07/17/2017 PROCEDURE: HISTORICAL COLONOSCOPY; COMMENT: [facility]; hosp for SBO; solitary ulcer mid transverse colon; 4 mm polyps ? 2 ; pathology: tubular adenomas. BOWEL RESECTION 10/09/2017 PROCEDURE: HISTORICAL BOWEL RESECTION; COMMENT: [facility]; segmental resection TC and mesh; colo-colostomy. ABDOMINAL SURGERY 03/2020 PROCEDURE: HISTORICAL ABDOMINAL SURGERY; COMMENT: lysis of adhesions at [facility] COLONOSCOPY 10/02/2020 PROCEDURE: HISTORICAL COLONOSCOPY; COMMENT: No visibly active Crohn's disease; solitary 6 mm polyp; multiple random biopsies obtained; anastomoses looked normal. Polyp = tubular adenoma. Bx = no dysplasia. Medical History Medical History Date Comments Other vitamin B12 deficiency anemia DX:Other vitamin B12 deficiency anemia; COMMENT: due to surgery for Crohn's Small bowel obstruction (CMS/HCC) 10/2006 DX:Small bowel obstruction (HCC); COMMENT: 2nd episode Family history of colonic polyps 06/27/2007 DX:Family history of colonic polyps; COMMENT: One sister with diagnosis of colonic polyps in her 50s. 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 Complete relief of all symptoms after the initiation of omeprazole 20 mg once a day at the end of 2007. 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 Cellulitis with abscess requiring surgical resection; approximate baseball size. History of MRSA infection 06/20/2016 DX:His tory of MRSA infection Port catheter in place 06/20/2016 DX:Port c atheter in place History of basal cell cancer 09/10/2018 DX: History of basal cell cancer Coronary artery disease 05/03/2007 DX:Coron keenan artery disease; COMMENT: S/p Ant ID with VFib arrest 05/01- 2 LAD stents placed- Liberte/Vison Peripheral neuropathy 04/26/2024 DX:Periphe ral neuropathy Hyperlipidemia DX:Hyperlipidemi a Essential hypertension DX:Essent ial hypertension Irritable bowel syndrome DX:Irri table bowel syndrome Crohn's disease (CMS/HCC) DX:In[place] O[place] hn's disease (HCC) History of small bowel obstruction DX:History of small bowel obstruction Back pain DX:Back pain Family History Medical History Relation Name Comments Other: Other Daughter x2 pacreatitisx ne uropathy in L foot Heart attack Father x3 Arthritis Mother Heart attack Mother Pacemaker Coronary artery disease Sister 1 pace maker BEAN disease Sister 1 Other: other Sister 1 anorexia, tinni us Breast cancer Sister 2 Breast cancer Sister 3 Other: cerebal palsy Son complet e care seizures Colon cancer Neg Hx Relation Name Status Comments Daughter x2 Alive Father (Age 47) CAD Mother (Age 93) arthritis Sister 1 Alive Sister 2 Alive Sister 3 Alive Son Alive Social History Tobacco Use Types Packs/Day Years [...] Orientation Straight 05/28/2024 10 :57 AM EST Obstetrics History Last Filed Vital Signs Vital Sign Reading Time Taken Comments Blood Pressure 128/71 07/23/2024 11:53 AM EDT Pulse 68 07/23/2024 11:53 AM EDT Temperature 36.3 ??C (97.4 ??F) 07/23/2024 11:53 AM E DT Respiratory Rate 18 04/02/2024 11:10 AM EST Oxygen Saturation 100% 07/23/2024 11:53 AM EDT Inhaled Oxygen Concentration - - Weight 94.8 kg (209 lb) 07/23/2024 11:53 AM EDT Height 177.8 cm (5' 10 ) 04/30/2024 3:16 PM EST Body Mass Index 29.99 04/30/2024 3:16 PM EST Plan of Treatment Upcoming Encounters Date Type Department Care Team (Late st Contact Info) Description 09/17/2024 11:30 AM EDT Appointment [facility] [address] [place] [address] 2[address] [place] [phone] Health Maintenance Due Date Last Done Comments Zoster Vaccines (1 of 2) 1969 DTaP,Tdap,and Td Vaccines (3 - Td or Tdap) 08/27/2020 08/27/2010, 06/28/1999 Social Influencers of Health Screening 04/02/2022 Cholesterol Screening (Lipid Panel) 12/08/2022 12/08/2017 Depression Screening 07/30/2024 07/31/2023 Medicare Annual Wellness Visit 07/30/2024 07/31/2023 Falls Risk Assessment 05/28/2025 05/28/2024, 024 Hypertension/CHF/CAD Annual BMP Blood Test 07/23/2025 07/23/2024, 05/28/2024, 04/02/2024, Additional history exists Colorectal Cancer Screening: Colonoscopy 10/02/2025 10/02/2020 Hepatitis C Screening Completed 01/20/2005 Pneumococcal Vaccine: 50+ Years Completed 04/02/2018, 07/15/2014, 03/10/2010 RSV Immunization Adult Patients Completed 05/26/2023 COVID-19 Vaccine Completed 01/10/2024, 05/2022, 02/07/2022, Additional history exists Influenza Vaccine Completed 01/10/2024, , 01/11/2023, Additional history exists HIB Vaccines Aged Out No longer eligi ble based on patient's age to complete this topic HPV Vaccines Aged Out No longer eligi ble based on patient's age to complete this topic Hepatitis A Vaccines Aged Out No long er eligible based on patient's age to complete this topic Hepatitis B Vaccines Aged Out No long er eligible based on patient's age to complete this topic IPV Vaccines Aged Out No longer eligi ble based on patient's age to complete this topic MMR Vaccines Aged Out No longer eligi ble based on patient's age to complete this topic Meningococcal ACWY Vaccine Aged Out N o longer eligible based on patient's age to complete this topic Meningococcal B Vacine Aged Out No lo nger eligible based on patient's age to complete this topic RSV Immunization Patients Under 20 months Aged Out No longer eligible based on patient's age to complete this topic Varicella Vaccines Aged Out No longer eligible based on patient's age to complete this topic Procedures Procedure Name Priority Date/Time Associated Diagnosis Comments SST - GOLD Routine 07/23/2024 12:05 PM EDT Rheumatoid arthritis, unspecified CBC WITH AUTO DIFFERENTIAL Routine 07/23/2024 12:05 PM EDT Rheumatoid arthritis, unspecified ALANINE AMINOTRANSFERASE Routine 025 12:05 PM EDT Rheumatoid arthritis, unspecified ASPARTATE AMINOTRANSFERASE Routine 07/23/2024 12:05 PM EDT Rheumatoid arthritis, unspecified ALBUMIN Routine 07/23/2024 12:05 PM EDT Rheumatoid arthritis, unspecified CREATININE, SERUM Routine 07/23/2024 12: 05 PM EDT Rheumatoid arthritis, unspecified C-REACTIVE PROTEIN Routine 07/23/2024 12 :05 PM EDT Rheumatoid arthritis, unspecified SEDIMENTATION RATE Routine 07/23/2024 12 :05 PM EDT Rheumatoid arthritis, unspecified CBC AND DIFFERENTIAL Routine 07/23/2024 12:05 PM EDT Rheumatoid arthritis, unspecified VITAMIN B12 AND FOLATE Routine 12:02 PM EDT B12 deficiency LAVENDER - EDTA Routine 05/28/2024 2:38 PM EST Rheumatoid arthritis, unspecified (CMS/HCC) SST - GOLD Routine 05/28/2024 2:38 PM EST Rheumatoid arthritis, unspecified (CMS/HCC) CBC WITH AUTO DIFFERENTIAL Routine 05/28/2024 2:38 PM EST Rheumatoid arthritis, unspecified (CMS/HCC) ALANINE AMINOTRANSFERASE Routine 025 2:38 PM EST Rheumatoid arthritis, unspecified (CMS/HCC) ASPARTATE AMINOTRANSFERASE Routine 05/28/2024 2:38 PM EST Rheumatoid arthritis, unspecified (CMS/HCC) ALBUMIN Routine 05/28/2024 2:38 PM EST Rheumatoid arthritis, unspecified (CMS/HCC) CREATININE, SERUM Routine 05/28/2024 2:3 8 PM EST Rheumatoid arthritis, unspecified (CMS/HCC) C-REACTIVE PROTEIN Routine 05/28/2024 2: 38 PM EST Rheumatoid arthritis, unspecified (CMS/HCC) SEDIMENTATION RATE Routine 05/28/2024 2: 38 PM EST Rheumatoid arthritis, unspecified (CMS/HCC) CBC AND DIFFERENTIAL Routine 05/28/2024 2:38 PM EST Rheumatoid arthritis, unspecified (CMS/HCC) THYROID STIMULATING HORMONE WITH REFLEX TO FREE T4 AND FREE T3 Routine 05/28/2024 2:34 PM EST History of thyroid disease MAGNESIUM Routine 05/28/2024 2:34 PM EST Muscle spasm MR BRAIN WO AND W CONTRAST Routine 05/13/2024 4:40 PM EST Abnormal findings on diagnostic imaging of skull and head, not elsewhere classified US HEAD NECK SOFT TISSUE Routine 025 2:58 PM EST History of thyroid disease MR BRAIN WO CONTRAST Routine 05/02/2024 3:24 PM EST Chronic tension-type headache, not intractable XR CERVICAL SPINE 4-5 VIEWS Routine 04/30/2024 3:51 PM EST Neck pain on right side DEPRESSION SCREENING Routine 07/31/2023 FALLS RISK ASSESSMENT Routine 07/31/2023 COLONOSCOPY Routine 10/02/2020 LIPID PANEL Routine 12/08/2017 HEPATITIS C SCREENING Routine 01/20/2005 from Last 3 Months or Most Recently Relevant to Health Maintenance Results * SST tube (07/23/2024 12:05 PM EDT) Only the most recent of2 resultswithin the time period is included. Extra Tube Hold for add-ons. 07/23/2024 3:01 PM EDT [facility] Comment:Auto resulted. Blood Venous blood specimen / Unknown 07/23/2024 12:05 PM EDT 07/23/2024 1:38 PM EDT us Gianni Jones MD LAB BLOOD ORDERABLES Final Resu lt [facility] [address] [place] [address], [place] [phone] * (ABNORMAL) CBC auto differential (07/23/2024 12:05 PM EDT) Only the most recent of2 resultswithin the time period is included. WBC 6.6 4.8 - 10.8 K/mcL LAB HEMETOLOGY METHOD 07/23/2024 1:53 PM EDT [facility] RBC 3.80(L) 4.50 - 5.50 M/mcL LAB HEMETOLOGY METHOD 07/23/2024 1:53 PM EDT [facility] Hemoglobin 13.3(L) 13.5 - 17.5 g/dL LAB HEMETOLOGY METHOD 07/23/2024 1:53 PM EDT [facility] Hematocrit 37.9(L) 42.0 - 54.0 % LAB HEMETOLOGY METHOD 07/23/2024 1:53 PM EDT [facility] MCV 100.8(H) 79.0 - 98.0 FL LAB HEMETOLOGY METHOD 07/23/2024 1:53 PM EDT [facility] MCH 35.4(H) 27.0 - 32.0 pcg LAB HEMETOLOGY METHOD 07/23/2024 1:53 PM EDT [facility] MCHC 35.1 32.0 - 37.0 g/dL LAB HEMETOLOGY METHOD 07/23/2024 1:53 PM EDT [facility] RDW 12.8 11.0 - 15.0 % LAB HEMETOLOGY METHOD 07/23/2024 1:53 PM EDT [facility] Platelets 233 130 - 400 K/mcL LAB HEMETOLOGY METHOD [facility]/23[facility]2024 [facility] MPV 9.8 7.0 - 11.0 FL LAB HEMETOLOGY METHOD 07/23/2024 1:53 [facility] NRBC 0.0 <1.0 % LAB HEMETOLOGY METHOD 07/23/2024 1:53 PM [facility] NRBC Absolute 0.00 <0.10 K/mcL LAB HEMETOLOGY METHOD 07/23/2024 1:53 PM [facility] Neutrophils Relative 67.8 % LAB HEMETOLOGY METHOD 07/23/2024 1:53 PM [facility] Lymphocytes Relative 21.9 % LAB HEMETOLOGY METHOD 07/23/2024 1:53 PM [facility] Monocytes Relative 7.0 % LAB HEMETOLOGY METHOD 07/23/2024 1:53 PM [facility] Eosinophils Relative 2.7 % LAB HEMETOLOGY METHOD 07/23/2024 1:53 PM [facility] Basophils Relative 0.3 % LAB HEMETOLOGY METHOD 07/23/2024 1:53 PM [facility] Immature Granulocytes Relative 0.3 % LAB HEMETOLOGY METHOD 07/23/2024 1:53 PM [facility] Neutrophils Absolute 4.46 1.50 - 7.00 K/mcL LAB HEMETOLOGY METHOD 07/23/2024 1:53 PM [facility] Lymphocytes Absolute 1.44 1.00 - 5.00 K/mcL LAB HEMETOLOGY METHOD 07/23/2024 1:53 PM [facility] Monocytes Absolute 0.46 0.20 - 1.00 K/mcL LAB HEMETOLOGY METHOD 07/23/2024 1:53 PM EDT [facility] Eosinophils Absolute 0.18 0.00 - 0.50 [facility] LAB HEMETOLOGY METHOD 07/23/2024 1:53 PM EDT [facility] Basophils Absolute 0.02 0.00 - 0.20 [facility] LAB HEMETOLOGY METHOD 07/23/2024 1:53 PM EDT [facility] Immature Granulocytes Absolute 0.02 0.00 - 0.03 [facility] LAB HEMETOLOGY METHOD 07/23/2024 1:53 PM EDT [facility] Blood Venous blood specimen / Unknown 07/23/2024 12:05 PM EDT 07/23/2024 1:38 PM EDT us Gianni Jones MD LAB BLOOD ORDERABLES Final Resu lt [facility] [address] [place] [address], [place] [phone] * Creatinine (07/23/2024 12:05 PM EDT) Only the most recent of2 resultswithin the time period is included. Creatinine 0.82 0.70 - 1.30 mg/dL LAB CHEMISTRY METHOD 07/23/2024 4:53 PM EDT [facility] eGFR 93 >=60 mL/min/1. 73m2 LAB CHEMISTRY METHOD 07/23/2024 4:53 PM EDT [facility] Comment:Calculation based on the??Chronic Kidney Disease Epidemiology Collaboration (CKD-EPI) equation refit??without adjustment for race. Blood Venous blood specimen / Unknown 07/23/2024 12:05 PM EDT 07/23/2024 1:38 PM EDT us Gianni Jones MD LAB BLOOD ORDERABLES Final Resu lt Performing Organization Address City/[facility]/ZIP Co de Phone Number [facility] [address] [place] [address], [place] [phone] * Sedimentation rate (07/23/2024 12:05 PM EDT) Only the most recent of2 resultswithin the time period is included. Pathologist [facility] Sed Rate 11 0 - 20 mm/hr LAB HEMETOLOGY METHOD 07/23/2024 2:16 PM EDT [facility] Blood Venous blood specimen / Unknown 07/23/2024 12:05 PM EDT 07/23/2024 1:38 PM EDT us Gianni Jones MD LAB BLOOD ORDERABLES Final Resu lt Performing Organization Address [facility] Co de Phone Number [facility] [address] [place] [address], [place] [phone] * C-reactive protein (07/23/2024 12:05 PM EDT) Only the most recent of2 resultswithin the time period is included. [facility] C-Reactive Protein <0.29 <=0.50 mg/dL LAB CHEMISTRY METHOD 07/23/2024 4:53 PM EDT [facility] Blood Venous blood specimen / Unknown 07/23/2024 12:05 PM EDT 07/23/2024 1:38 PM EDT us Gianni Jones MD LAB BLOOD ORDERABLES Final Resu lt Performing Organization Address City/[facility] Co de Phone Number [facility] [address] [place] [address], [place] [phone] * Alanine aminotransferase (07/23/2024 12:05 PM EDT) Only the most recent of2 resultswithin the time period is included. Pathologist [facility] ALT (SGPT) 40 10 - 60 unit/L LAB CHEMISTRY METHOD 07/23/2024 4:53 PM EDT [facility] Blood Venous blood specimen / Unknown 07/23/2024 12:05 PM EDT 07/23/2024 1:38 PM EDT us Gianni Jones MD LAB BLOOD ORDERABLES Final Resu lt Performing Organization Address [facility] Co de Phone Number [facility] [address] [place] [address], [place] [phone] * Aspartate aminotransferase (07/23/2024 12:05 PM EDT) Only the most recent of2 resultswithin the time period is included. AST (SGOT) 22 10 - 42 unit/L LAB CHEMISTRY METHOD 07/23/2024 5:09 PM EDT [facility] Blood Venous blood specimen / Unknown 07/23/2024 12:05 PM EDT 07/23/2024 1:38 PM EDT us Gianni Jones MD LAB BLOOD ORDERABLES Final Resu lt Performing Organization Address [facility] Co de Phone Number [facility] [address] [place] [address], [place] [phone] * Albumin (07/23/2024 12:05 PM EDT) Only the most recent of2 resultswithin the time period is included. Albumin 3.8 3.2 - 5.0 g/dL LAB CHEMISTRY METHOD 07/23/2024 4:53 PM EDT [facility] Blood Venous blood specimen / Unknown 07/23/2024 12:05 PM EDT 07/23/2024 1:38 PM EDT us Gianni Jones MD LAB BLOOD ORDERABLES Final Resu lt Performing Organization Address City/[facility] Co de Phone Number [facility] [address] [place] [address], [place] [phone] * (ABNORMAL) Vitamin B12 and folate (07/23/2024 12:02 PM EDT) [facility] Vitamin B-12 411 250 - 900 pcg/mL LAB CHEMISTRY METHOD 07/23/2024 5:23 PM EDT [facility] Folate >20.0(H) 2.8 - 17.0 ng/ml LAB CHEMISTRY METHOD 07/23/2024 5:23 PM EDT [facility] Blood Venous blood specimen / Unknown Venipuncture / Unknown 07/23/2024 12:02 PM EDT 07/23/2024 1:38 PM EDT us Don Escalante MD LAB BLOOD ORDERABLES Final Resu lt Performing Organization Address City/[facility]/ZIP Co de Phone Number [facility] [address] [place] [address], [place] [phone] * Lavender tube (05/28/2024 2:38 PM EST) [facility] Extra Tube Hold for add-ons. 05/28/2024 5:01 PM EST [facility] Comment:Auto resulted. Blood Venous blood specimen / Unknown 05/28/2024 2:38 PM EST 05/28/2024 3:15 PM EST us Gianni Jones MD LAB BLOOD ORDERABLES Final Resu lt [facility] [address] [place] [address], [place] [phone] * Thyroid stimulating hormone with reflex to free t4 and free t3 (05/28/2024 2:34 PM EST) [facility] TSH 0.90 0.40 - 4.00 mcIU/mL LAB CHEMISTRY METHOD 05/28/2024 4:04 PM EST [facility] Blood Blood sample taken from central line / Unknown Existing Catheter / Unknown 05/28/2024 2:34 PM EST 05/28/2024 3:16 PM EST Don Escalante MD LAB BLOOD ORDERABLES Final Resu lt Performing Organization Address [facility]/ZIP Co de Phone Number [facility] [address] [place] [address], [place] [phone] * Magnesium (05/28/2024 2:34 PM EST) Magnesium 2.1 1.9 - 2.6 mg/dL LAB CHEMISTRY METHOD 05/28/2024 3:48 PM EST [facility] Blood Blood sample taken from central line / Unknown Existing Catheter / Unknown 05/28/2024 2:34 PM EST 05/28/2024 3:16 PM EST Don Escalante MD LAB BLOOD ORDERABLES Final Resu lt Performing Organization Address [facility]/ZIP Co de Phone Number [facility] [address] [place] [address], [place] [phone] * MR Brain wo and w Contrast (05/13/2024 4:40 PM EST) Anatomical Region Laterality Modality Head and Neck Magnetic Resonan ce 05/14/2024 4:02 PM EST Impressions 05/14/2024 4:10 PM EST No acute findings or abnormal intracranial enhancement. Mild chronic small vessel ischemic changes throughout the supratentorial white matter with mild diffuse cerebral volume loss. -------- FINAL REPORT -------- Dictated By: BRANDEN BELTRAN Dictated Date: 05/14/2024 16:02 ET Assigned Physician: BRANDEN BELTRAN Reviewed and Electronically Signed By: BRANDEN BELTRAN Signed Date: 05/14/2024 16:10 ET Workstation ID: [id number] Transcribed By: Self Edit Transcribed Date: 05/14/2024 16:02 ET Narrative 05/14/2024 4:10 PM EST PROCEDURE: Brain MRI INDICATION: Headache, weight matter lesions TECHNIQUE: Multiplanar, multisequence MRI of the brain without and with contrast. ??20 mL Dotarem injected intravenously without complication. COMPARISON: ??No priors available. FINDINGS: No acute infarct, mass effect, or intracranial hemorrhage. Mild nonspecific T2 hyperintense foci throughout the supratentorial white matter, most likely related to chronic small vessel ischemic change. No abnormal intracranial susceptibility artifact or enhancement Sella and foramen magnum are normal. Ventricles, sulci, and cisterns are mildly prominent in keeping with mild diffuse cerebral volume loss. ??No hydrocephalus. Major intracranial arterial flow voids are within normal limits. Sinuses and mastoid air cells are clear. Bilateral lens implants. ??Orbits and extracranial soft tissues are otherwise normal. Calvarium is normal. Procedure Note Branden Beltran MD - 05/14/2024 PROCEDURE: Brain MRI INDICATION: Headache, weight matter lesions TECHNIQUE: Multiplanar, multisequence MRI of the brain without and withcontrast. 20 mL Dotarem injected intravenously without complication. COMPARISON: No priors available. FINDINGS: No acute infarct, mass effect, or intracranial hemorrhage. Mild nonspecific T2 hyperintense foci throughout the supratentorial whitematter, most likely related to chronic small vessel ischemic change. No abnormal intracranial susceptibility artifact or enhancement Sella and foramen magnum are normal. Ventricles, sulci, and cisterns are mildly prominent in keeping with milddiffuse cerebral volume loss. No hydrocephalus. Major intracranial arterial flow voids are within normal limits. Sinuses and mastoid air cells are clear. Bilateral lens implants. Orbits and extracranial soft tissues areotherwise normal. Calvarium is normal. IMPRESSION: No acute findings or abnormal intracranial enhancement. Mild chronic small vessel ischemic changes throughout the supratentorialwhite matter with mild diffuse cerebral volume loss. -------- FINAL REPORT -------- Dictated By: BRANDEN BELTRAN Dictated Date: 05/14/2024 16:02 ET Assigned Physician: BRANDEN BELTRAN Reviewed and Electronically Signed By: BRANDEN BELTRAN Signed Date: 05/14/2024 16:10 ET Workstation ID: [id number] Transcribed By: Self Edit Transcribed Date: 05/14/2024 16:02 ET us Don Escalante MD IMG MRI PROCEDURES Final Result * US Head Neck Soft Tissue (05/08/2024 2:58 PM EST) Anatomical Region Laterality Modality Head and Neck Ultrasound 05/08/2024 4:59 PM EST Narrative 05/08/2024 5:18 PM EST Thyroid ultrasound. History follow-up on thyroid nodules. Comparison with prior examinations, latest from 02/26/2019. Thyroid gland is heterogeneous in echotexture and hypervascular on color Doppler examination. Right thyroid lobe measures 5.6 x 2.1 x 2.3 cm. There is are 1.4 x 0.9 x 1.2 cm nodule in the upper pole which revealed mixed echogenicity and circumscribed borders, previously 1.1 x 0.6 x 0.9 cm. There is a midpole nodule measuring 1.5 x 1.4 x 1.2 cm which is partially circumscribed borders and appears to be isoechoic. Prior measurements are 1.5 x 1.4 x 1.2 cm. There is a lower pole nodule which is solid and isoechoic with mostly circumscribed borders measuring 1.1 x 1.1 x 1.1 cm, previously 1.1 x 0.9 x 0.6 cm. Left thyroid lobe was visualized measuring 4.9 x 2.2 x 1.7 cm. There is ??mixed echogenicity nodule with cystic and solid components in the upper pole measuring 0.5 x 0.5 x 0.6 cm, previously 1.5 x 0.9 x 1.1 cm. There is circumscribed small isoechoic nodule in the upper pole located medially measuring 0.9 x 0.6 x 0.7 cm. It measures 0.5 x 0.5 x 0.4 cm previously. There is a hyperechoic nodule with circumscribed borders in the midpole measuring 0.6 x 0.5 x 0.4 cm, previously 0.3 x 0.2 x 0.4 cm. There is a circumscribed slightly hyperechoic nodule in the lower pole measuring 0.9 x 0.4 x 0.7 cm not documented previously. CONCLUSIONS: Heterogeneous in echotexture hypervascular thyroid gland. Bilateral thyroid nodules as detailed. No particular suspicious features were identified. Follow-up arm ultrasound is recommended in 6 months. -------- FINAL REPORT -------- Dictated By: Inez Raines Dictated Date: 05/08/2024 16:59 ET Assigned Physician: Inez Raines Reviewed and Electronically Signed By: Inez Raines Signed Date: 05/08/2024 17:18 ET Workstation ID: [id number] Transcribed By: Self Edit Transcribed Date: 05/08/2024 16:59 ET Procedure Note Inez Raines MD - 05/08/2024 Thyroid ultrasound. History follow-up on thyroid nodules. Comparison with prior examinations, latest from 02/26/2019. Thyroid gland is heterogeneous in echotexture and hypervascular on colorDoppler examination. Right thyroid lobe measures 5.6 x 2.1 x 2.3 cm. There is are 1.4 x 0.9 x1.2 cm nodule in the upper pole which revealed mixed echogenicity andcircumscribed borders, previously 1.1 x 0.6 x 0.9 cm. There is a midpolenodule measuring 1.5 x 1.4 x 1.2 cm which is partially circumscribedborders and appears to be isoechoic. Prior measurements are 1.5 x 1.4 x1.2 cm. There is a lower pole nodule which is solid and isoechoic withmostly circumscribed borders measuring 1.1 x 1.1 x 1.1 cm, previously 1.1x 0.9 x 0.6 cm. Left thyroid lobe was visualized measuring 4.9 x 2.2 x 1.7 cm. There ismixed echogenicity nodule with cystic and solid components in the upperpole measuring 0.5 x 0.5 x 0.6 cm, previously 1.5 x 0.9 x 1.1 cm. There iscircumscribed small isoechoic nodule in the upper pole located mediallymeasuring 0.9 x 0.6 x 0.7 cm. It measures 0.5 x 0.5 x 0.4 cm previously.There is a hyperechoic nodule with circumscribed borders in the midpolemeasuring 0.6 x 0.5 x 0.4 cm, previously 0.3 x 0.2 x 0.4 cm. There is acircumscribed slightly hyperechoic nodule in the lower pole measuring 0.9x 0.4 x 0.7 cm not documented previously. CONCLUSIONS: Heterogeneous in echotexture hypervascular thyroid gland.Bilateral thyroid nodules as detailed. No particular suspicious featureswere identified. Follow-up arm ultrasound is recommended in 6 months. -------- FINAL REPORT -------- Dictated By: Inez Raines Dictated Date: 05/08/2024 16:59 ET Assigned Physician: Inez Raines Reviewed and Electronically Signed By: Inez Raines Signed Date: 05/08/2024 17:18 ET Workstation ID: [id number] Transcribed By: Self Edit Transcribed Date: 05/08/2024 16:59 ET us Don Escalante MD IMG US PROCEDURES Final Result * MR Brain wo Contrast (05/02/2024 3:24 PM EST) Anatomical Region Laterality Modality Head and Neck Magnetic Resonan ce 05/03/2024 9:48 AM EST Narrative 05/03/2024 10:02 AM EST MRI of the head without intravenous contrast. HISTORY: Chronic headaches. No previous studies are available for comparison. There is mild symmetric sulcal ventricular prominence reflecting mild atrophic changes. There is increased FLAIR signal involving periventricular white matter as well as corpus callosum. There is no associated restricted diffusion. Fourth ventricle and basal cisterns are midline and patent. Paranasal sinuses and mastoid processes are aerated. CONCLUSIONS: Bilateral white matter signal abnormalities involving mostly periventricular white matter as well as corpus callosum. Involvement of the corpus callosum is worrisome. Major differential diagnosis should include demyelinating processes as well as neoplastic processes. Additional evaluation with MRI examination with intravenous contrast is recommended. Additional FLAIR sagittal images should be obtained. -------- FINAL REPORT -------- Dictated By: Inez Raines Dictated Date: 05/03/2024 09:48 ET Assigned Physician: Inez Raines Reviewed and Electronically Signed By: Inez Raines Signed Date: 05/03/2024 10:02 ET Workstation ID: [id number] Transcribed By: Self Edit Transcribed Date: 05/03/2024 09:48 ET Procedure Note Inez Raines MD - 05/03/2024 MRI of the head without intravenous contrast. HISTORY: Chronic headaches. No previous studies are available for comparison. There is mild symmetric sulcal ventricular prominence reflecting mildatrophic changes. There is increased FLAIR signal involvingperiventricular white matter as well as corpus callosum. There is noassociated restricted diffusion. Fourth ventricle and basal cisterns aremidline and patent. Paranasal sinuses and mastoid processes are aerated. CONCLUSIONS: Bilateral white matter signal abnormalities involving mostlyperiventricular white matter as well as corpus callosum. Involvement ofthe corpus callosum is worrisome. Major differential diagnosis shouldinclude demyelinating processes as well as neoplastic processes.Additional evaluation with MRI examination with intravenous contrast isrecommended. Additional FLAIR sagittal images should be obtained. -------- FINAL REPORT -------- Dictated By: Inez Raines Dictated Date: 05/03/2024 09:48 ET Assigned Physician: Inez Raines Reviewed and Electronically Signed By: Inez Raines Signed Date: 05/03/2024 10:02 ET Workstation ID: [id number] Transcribed By: Self Edit Transcribed Date: 05/03/2024 09:48 ET Don Escalante MD IMG MRI PROCEDURES Final Result * XR Cervical Spine 4-5 Views (04/30/2024 3:51 PM EST) Anatomical Region Laterality Modality Spine, C-spine Radiographic Estela ging 04/30/2024 6:37 PM EST Impressions 04/30/2024 6:39 PM EST Spondylosis and neural foraminal narrowing. -------- FINAL REPORT -------- Dictated By: Katy Person Dictated Date: 04/30/2024 18:37 ET Assigned Physician: Katy Person Reviewed and Electronically Signed By: Katy Person Signed Date: 04/30/2024 18:39 ET Workstation ID: [id number] Transcribed By: Self Edit Transcribed Date: 04/30/2024 18:37 ET Narrative 04/30/2024 6:39 PM EST CERVICAL SPINE, 4 VIEWS HISTORY: ??Neck pain. FINDINGS: There is straightening of the normal lordotic curve. ??No fracture or dislocation is seen. The paravertebral soft tissues are unremarkable. There is disc space narrowing and endplate spurring at C4-5, C5-6 and C6-7. ??There is mild endplate spurring at C3-4. There is multilevel bilateral neural foraminal narrowing from osteophytes. There is a central line on the right. Procedure Note Katy Person MD - 04/30/2024 CERVICAL SPINE, 4 VIEWS HISTORY: Neck pain. FINDINGS: There is straightening of the normal lordotic curve. No fracture ordislocation is seen. The paravertebral soft tissues are unremarkable. There is disc space narrowing and endplate spurring at C4-5, C5-6 andC6-7. There is mild endplate spurring at C3-4. There is multilevel bilateral neural foraminal narrowing fromosteophytes. There is a central line on the right. IMPRESSION: Spondylosis and neural foraminal narrowing. -------- FINAL REPORT -------- Dictated By: Katy Person Dictated Date: 04/30/2024 18:37 ET Assigned Physician: Katy Person Reviewed and Electronically Signed By: Katy Person Signed Date: 04/30/2024 18:39 ET Workstation ID: [id number] Transcribed By: Self Edit Transcribed Date: 04/30/2024 18:37 ET Don Escalante MD IMG XR PROCEDURES Final Result * Falls Risk Assessment (07/31/2023) Falls Risk Assessment Abstracted Historical Provider HEALTH MAINTENANCE Final Result * Depression Screening (07/31/2023) Depression Screening Abstracted Historical Provider HEALTH MAINTENANCE Final Result * Colonoscopy (10/02/2020) Pathologist [facility] Colonoscopy No Interpretation , Abstracted Anatomical Region Laterality Modality Other Historical Provider HEALTH MAINTENANCE Final Result * (ABNORMAL) Lipid panel (12/08/2017) [facility] LDL/HDL Ratio 3 0 - 4 Triglycerides 162(A) 0 - 150 mg/dL Cholesterol 119 0 - 200 mg/dL HDL 40 >=40 mg/dL LDL Cholesterol 47 0 - 100 mg/dL Blood Venous blood specimen / Unknown Historical Provider LAB BLOOD ORDERABLES Naina l Result * Hepatitis C Screening (01/20/2005) Pathologist [facility] Hepatitis C Screening Abstracted [facility] Provider HEALTH MAINTENANCE Edited Result - Final from Last 3 Months or Most Recently Relevant to Health Maintenance Insurance MEDICARE [employer] Advance Directives Documents on File Type Date Recorded 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 Health Care Decision (hx) 01/05/2010 AD WANG DIRECTIVE Health Care Decision (hx) 01/05/2010 AD WANG DIRECTIVE Health Care Decision (hx) 01/05/2010 AD WANG DIRECTIVE Health Care Decision (hx) 01/05/2010 AD WANG DIRECTIVE Health Care Decision (hx) 01/05/2010 AD WANG DIRECTIVE Health Care Decision (hx) 01/05/2010 AD WANG DIRECTIVE Health Care Decision (hx) 01/05/2010 AD WANG DIRECTIVE Health Care Decision (hx) 01/05/2010 AD WANG DIRECTIVE Health Care Decision (hx) 01/05/2010 AD WANG DIRECTIVE Health Care Decision (hx) 01/05/2010 AD WANG DIRECTIVE Health Care Decision (hx) 01/05/2010 AD WANG DIRECTIVE Health Care Decision (hx) 01/05/2010 AD WANG DIRECTIVE Health Care Decision (hx) 01/05/2010 AD WANG DIRECTIVE Health Care Decision (hx) 01/05/2010 AD WANG DIRECTIVE Health Care Decision (hx) 01/05/2010 AD WANG DIRECTIVE Health Care Decision (hx) 01/05/2010 AD WANG DIRECTIVE Health Care Decision (hx) 01/05/2010 AD WANG DIRECTIVE Health Care Decision (hx) 01/05/2010 AD WANG DIRECTIVE Health Care Decision (hx) 01/05/2010 AD WANG DIRECTIVE Health Care Decision (hx) 01/05/2010 AD WANG DIRECTIVE Health Care Decision (hx) 01/05/2010 AD WANG DIRECTIVE Health Care Decision (hx) 01/05/2010 AD WANG DIRECTIVE Health Care Decision (hx) 01/05/2010 AD WANG DIRECTIVE Health Care Decision (hx) 01/05/2010 AD WANG DIRECTIVE Health Care Decision (hx) 01/05/2010 AD WANG DIRECTIVE Health Care Decision (hx) 01/05/2010 AD WANG DIRECTIVE Health Care Decision (hx) 01/05/2010 AD WANG DIRECTIVE Health Care Decision (hx) 01/05/2010 AD WANG DIRECTIVE Health Care Decision (hx) 01/05/2010 AD WANG DIRECTIVE Health Care Decision (hx) 01/05/2010 AD WANG DIRECTIVE Health Care Decision (hx) 01/05/2010 AD WANG DIRECTIVE Health Care Decision (hx) 01/05/2010 AD WANG DIRECTIVE Health Care Decision (hx) 01/05/2010 AD WANG DIRECTIVE Health Care Decision (hx) 01/05/2010 AD WANG DIRECTIVE Health Care Decision (hx) 01/05/2010 AD WANG DIRECTIVE Health Care Decision (hx) 01/05/2010 AD WANG DIRECTIVE Health Care Decision (hx) 01/05/2010 AD WANG DIRECTIVE Health Care Decision (hx) 01/05/2010 AD WANG DIRECTIVE Health Care Decision (hx) 01/05/2010 AD WANG DIRECTIVE Care Teams [employer]ologna Lacer Relationship Specialty Start Date End Date Don Escalante MD [address] [place] [id number] PCP - General Internal Medicine 04/02/24
--- OUTSIDE RECORDS SUMMARY | 2024-07-26 13:56 | XMS_ITS | Encounter Summary ---
Author Organization [facility] Address [address] [address] Phone Care Team Providers Care Store Standards Associate Name Role Phone [facility] Clarisa Linda MD Primary Care Provider Don Escalante MD Primary Care Provider [phone] Reason for Referral * MRI/CAT Scan - Closed Specialty Diagnoses / Procedures Referred By Contac t Referred To Contact Radiology Diagnoses Hyperlipidemia, unspecified hyperlipidemia type Procedures NC Myocardial Perfusion Pharmacologic Stress Multiple System, Provider Not In, [place] [address] Referral ID Status Reason Start Date Expiration Date Visits Re quested Visits Authorized [id number] Closed 02/02/2018 02/02/2019 1 1 Encounter Details Date Type Department Care Team (Latest Contact Info) Description 02/02/2018 Transcribe [facility] [address] [place] [address] [address] [place] [address] Arabella Wright NP [address] [place] [address] Hyperlipidemia, unspecified hyperlipidemia type (Primary Dx) Social History Tobacco Use Types Packs/Day Years [...] on file documented as of this encounter Results * NC Myocardial Perfusion Pharmacologic Stress Multiple (04/12/2018 2:12 PM EST) Nuc Stress EF 49 % LV Systolic Volume 51 mL LV Diastolic Volume 116 mL EF 56 % LV Systolic Volume Index 70 mL/m2 LV Diastolic Volume Index 136 mL/m2 Anatomical Region Laterality Modality Heart, Vascular Ultrasound Narrative 04/13/2018 1:40 PM EST Normal study. There is no evidence of myocardial infarction or ischemia. Normal LV size and function with no regional wall motion abnormalities. The transient ischemic dilatation ratio is mildly elevated at 1.29. ?? Perfusion appears normal however. ??This could be artifact versus balanced ischemia. ??Recommend clinical correlation. Compared to study from 2016, the inferior infarct seen is no longer present. ??Perfusion on today's study looks normal. Nuclear Study Quality Overall image quality is good. The test performed was a Two-Day Stress/Rest SPECT Myocardial Perfusion Pharmacologic exercise stress test. The stress images were obtained approximately 45 minutes following the radiopharmaceutical injection. The resting images were also obtained 45 minutes following the radiopharmaceutical injection. . Diaphragmatic attenuation artifact is present. Study was successfully gated. Response to Stress BMI:26.40 REGADENOSON Exercise Stress Test Report: Reason for termination: Protocol complete Summary: Resting ECG: SB, HR 48 bpm Functional capacity: Not assessed Heart rate response to exercise: Not assessed Blood pressure response to exercise: Not assessed Chest pain: None Arrhythmias: None Overall impression: Nondiagnostic pharmacologic stress test Conclusion: Nondiagnostic pharmacologic stress test. Patient unable to complete test on TM due to gait instability. The patient was infused with 0.4 mg of Regadenoson (Lexiscan) intravenously over 10 seconds followed immediately by the injection of the radiopharmaceutical. Patient experienced some slight lightheadedness and diaphoresis after administration of pharmacologic agent, which resolved on its own. Test terminated due to completion of protocol. Summary: 1. EKG: No EKG changes suggestive of ischemia 2. Symptoms: No chest pain or symptoms concerning for angina 3. Exercise physiology: Not assessed due to pharmacologic study 4. Arrhythmia: None Conclusion: Nondiagnostic pharmacologic stress test. No ischemic EKG changes from baseline with pharmacologic protocol. Patient hemodynamically stable at completion of exam. Nuclear image results pending. EKG reviewed with Dr. Bergman. Anahi Thornton, SHMUEL, MPH . Perfusion Comments The TID ratio was 1.3. Stress Function Comments Post-stress ejection fraction was 49%. Stress end diastolic index: 136 mL/m2. Stress end systolic index: 70 mL/m2. Nuclear Prior Study There is a prior study available for comparison. Rest Function Comments Resting ejection fraction was 56%. Rest end diastolic index: 116 mL. Rest end systolic index: 51 mL. Perfusion Scoring Stress Summed Score: 6 Percent Normal: 8.82% Moderate count reduction in the following segments: basal anterior and basal anteroseptal. Mild count reduction in the following segments: mid inferior and mid inferolateral. All other segments are normal. Perfusion Scoring Resting Summed Score: 0 Percent Normal: 0.00% The left ventricular perfusion is normal. Procedure Note Antonio Bergman MD - 04/13/2018 Normal study. There is no evidence of myocardial infarction or ischemia. Normal LV size and function with no regional wall motion abnormalities. The transient ischemic dilatation ratio is mildly elevated at 1.29.Perfusion appears normal however. This could be artifact versus balancedischemia. Recommend clinical correlation. Compared to study from 2016, the inferior infarct seen is no longerpresent. Perfusion on today's study looks normal. Provider Not In System PhD CV NM CARDIAC documented in this encounter Visit Diagnoses Diagnosis Hyperlipidemia, unspecified hyperlipidemia type- Primary Hyperlipidemia, unspecified hyperlipidemia type Hyperlipidemia, unspecified hyperlipidemia type- Primary documented in this encounter Additional Health Concerns Infection Onset Date Last Indicated Resolved Time CDiff-Risk 09/09/2023 09/09/2023 09/09/2023 2:54 PM EDT documented as of this encounter Care Teams Store Standards Associate Relationship Specialty Start Date End Date Clarisa James MD [address] [place] [address] PCP - General Internal Medicine 01/07/16 01/22/23 Don Escalante MD [address] [place] [address] PCP - General Internal Medicine 01/23/23 documented as of this encounter Additional Source Comments The information contained in this document represents components of the legal health record. It is not the complete legal health record.[facility]
--- OUTSIDE RECORDS SUMMARY | 2024-07-26 13:56 | XMS_ITS | Encounter Summary ---
Author Organization [facility] Address [address] [place] [address] Care Team Providers Care Associate Director Of Biostatistics Name Role Phone Don Escalante MD Primary Care Provider [phone] Encounter Details Date Type Department Care Team (Late Contact Info) Description 05/28/2024 Lab Requisition [facility] [address] [facility] [place] [phone] Gianni Jones MD [address] [place] [phone] Rheumatoid arthritis, unspecified (CMS/HCC) Social History Tobacco Use Types Packs/Day Years [...] Encounters Date Type Department Care Team (Late Contact Info) Description 09/17/2024 11:30 AM EDT Appointment [facility] [address] [phone] documented as of this encounter Procedures Procedure Name Priority Date/Time Associated Diagnosis Comments SST - GOLD Routine 05/28/2024 2:38 PM EST Rheumatoid arthritis, unspecified (CMS/HCC) CBC WITH AUTO DIFFERENTIAL Routine 05/28/2024 2:38 PM EST Rheumatoid arthritis, unspecified (CMS/HCC) LAVENDER - EDTA Routine 05/28/2024 2:38 PM EST Rheumatoid arthritis, unspecified (CMS/HCC) CREATININE, SERUM Routine 05/28/2024 2:3 8 PM EST Rheumatoid arthritis, unspecified (CMS/HCC) SEDIMENTATION RATE Routine 05/28/2024 2: 38 PM EST Rheumatoid arthritis, unspecified (CMS/HCC) CBC AND DIFFERENTIAL Routine 05/28/2024 2:38 PM EST Rheumatoid arthritis, unspecified (CMS/HCC) C-REACTIVE PROTEIN Routine 05/28/2024 2: 38 PM EST Rheumatoid arthritis, unspecified (CMS/HCC) ALANINE AMINOTRANSFERASE Routine 2:38 PM EST Rheumatoid arthritis, unspecified (CMS/HCC) ASPARTATE AMINOTRANSFERASE Routine 05/28/2024 2:38 PM EST Rheumatoid arthritis, unspecified (CMS/HCC) ALBUMIN Routine 05/28/2024 2:38 PM EST Rheumatoid arthritis, unspecified (CMS/HCC) documented in this encounter Results * Lavender tube (05/28/2024 2:38 PM EST) Extra Tube Hold for add-ons. 05/28/2024 5:01 PM EST [facility] Comment:Auto resulted. Blood Venous blood specimen / Unknown 05/28/2024 2:38 PM EST 05/28/2024 3:15 PM EST us Gianni Jones MD LAB BLOOD ORDERABLES Final Resu lt [facility] [address] [place] [address], [place] [phone] * SST tube (05/28/2024 2:38 PM EST) [facility] Extra Tube Hold for add-ons. 05/28/2024 5:01 PM EST [facility] Comment:Auto resulted. Blood Venous blood specimen / Unknown 05/28/2024 2:38 PM EST 05/28/2024 3:15 PM EST Gianni Jones MD LAB BLOOD ORDERABLES Final Resu lt [facility] [address] [place] [address], [place] [phone] * (ABNORMAL) CBC auto differential (05/28/2024 2:38 PM EST) [facility] WBC 9.3 4.8 - 10.8 K/mcL LAB HEMETOLOGY METHOD 05/28/2024 3:24 PM [facility] RBC 3.70(L) 4.50 - 5.50 M/mcL LAB HEMETOLOGY METHOD 05/28/2024 3:24 PM [facility] Hemoglobin 12.6(L) 13.5 - 17.5 g/dL LAB HEMETOLOGY METHOD 05/28/2024 3:24 PM [facility] Hematocrit 36.5(L) 42.0 - 54.0 % LAB HEMETOLOGY METHOD 05/28/2024 3:24 PM [facility] MCV 99.2(H) 79.0 - 98.0 FL LAB HEMETOLOGY METHOD 05/28/2024 3:24 PM [facility] MCH 34.2(H) 27.0 - 32.0 pcg LAB HEMETOLOGY METHOD 05/28/2024 3:24 PM [facility] MCHC 34.5 32.0 - 37.0 g/dL LAB HEMETOLOGY METHOD 05/28/2024 3:24 PM [facility] RDW 13.4 11.0 - 15.0 % LAB HEMETOLOGY METHOD 05/28/2024 3:24 PM [facility] Platelets 235 130 - 400 K/mcL LAB HEMETOLOGY METHOD 05/28/2024 3:24 PM [facility] MPV 9.6 7.0 - 11.0 FL LAB HEMETOLOGY METHOD 05/28/2024 3:24 PM [facility] NRBC 0.0 <1.0 % LAB HEMETOLOGY METHOD 05/28/2024 3:24 PM [facility] NRBC Absolute 0.00 <0.10 K/mcL LAB HEMETOLOGY METHOD 05/28/2024 3:24 PM [facility] Neutrophils Relative 68.0 % LAB HEMETOLOGY METHOD 05/28/2024 3:24 PM [facility] Lymphocytes Relative 23.7 % LAB HEMETOLOGY METHOD 05/28/2024 3:24 PM [facility] Monocytes Relative 6.3 % LAB HEMETOLOGY METHOD 05/28/2024 3:24 PM [facility] Eosinophils Relative 1.4 % LAB HEMETOLOGY METHOD 05/28/2024 3:24 PM [facility] Basophils Relative 0.2 % LAB HEMETOLOGY METHOD 05/28/2024 3:24 PM [facility] Immature Granulocytes Relative 0.4 % LAB HEMETOLOGY METHOD 05/28/2024 3:24 PM [facility] Neutrophils Absolute 6.33 1.50 - 7.00 K/mcL LAB HEMETOLOGY METHOD 05/28/2024 3:24 PM [facility] Lymphocytes Absolute 2.21 1.00 - 5.00 K/mcL LAB HEMETOLOGY METHOD 05/28/2024 3:24 PM EST [facility] Monocytes Absolute 0.59 0.20 - 1.00 K/[facility] LAB HEMETOLOGY METHOD 05/28/2024 3:24 PM EST [facility] Eosinophils Absolute 0.13 0.00 - 0.50 K/[facility] LAB HEMETOLOGY METHOD 05/28/2024 3:24 PM EST [facility] Basophils Absolute 0.02 0.00 - 0.20 K/[facility] LAB HEMETOLOGY METHOD 05/28/2024 3:24 PM EST [facility] Immature Granulocytes Absolute 0.04(H) 0.00 - 0.03 K/[facility] LAB HEMETOLOGY METHOD 05/28/2024 3:24 PM EST [facility] Blood Venous blood specimen / Unknown 05/28/2024 2:38 PM EST 05/28/2024 3:15 PM EST us Gianni Jones MD LAB BLOOD ORDERABLES Final Resu lt [facility] [address] [place] [address], [place] [phone] * Alanine aminotransferase (05/28/2024 2:38 PM EST) ALT (SGPT) 53 10 - 60 unit/L LAB CHEMISTRY METHOD 05/28/2024 3:53 PM EST [facility] Blood Venous blood specimen / Unknown 05/28/2024 2:38 PM EST 05/28/2024 3:15 PM EST us Gianni Jones MD LAB BLOOD ORDERABLES Final Resu lt [facility] [address] [place] [address], [place] [phone] * Aspartate aminotransferase (05/28/2024 2:38 PM EST) AST (SGOT) 24 10 - 42 unit/L LAB CHEMISTRY METHOD 05/28/2024 3:53 PM EST [facility] Blood Venous blood specimen / Unknown 05/28/2024 2:38 PM EST 05/28/2024 3:15 PM EST us Gianni Jones MD LAB BLOOD ORDERABLES Final Resu lt Performing Organization Address City/[facility]/ZIP Co de Phone Number [facility] [address] [place] [address], [place] [phone] * Albumin (05/28/2024 2:38 PM EST) Pathologist [facility] Albumin 3.4 3.2 - 5.0 g/dL LAB CHEMISTRY METHOD 05/28/2024 3:53 PM EST [facility] Blood Venous blood specimen / Unknown 05/28/2024 2:38 PM EST 05/28/2024 3:15 PM EST us Gianni Jones MD LAB BLOOD ORDERABLES Final Resu lt Performing Organization Address [facility] Co de Phone Number [facility] [address] [place] [address], [place] [phone] * Creatinine (05/28/2024 2:38 PM EST) Creatinine 0.80 0.70 - 1.30 mg/dL LAB CHEMISTRY METHOD 05/28/2024 3:53 PM EST [facility] eGFR 93 >=60 mL/min/1. 73m2 LAB CHEMISTRY METHOD 05/28/2024 3:53 PM EST [facility] Comment:Calculation based on the??Chronic Kidney Disease Epidemiology Collaboration (CKD-EPI) equation refit??without adjustment for race. Blood Venous blood specimen / Unknown 05/28/2024 2:38 PM EST 05/28/2024 3:15 PM EST us Gianni Jones MD LAB BLOOD ORDERABLES Final Resu lt Performing Organization Address [facility]/ZIP Co de Phone Number [facility] [address] [place] [address], [place] [phone] * C-reactive protein (05/28/2024 2:38 PM EST) C-Reactive Protein <0.29 <=0.50 mg/dL LAB CHEMISTRY METHOD 05/28/2024 3:53 PM EST [facility] Blood Venous blood specimen / Unknown 05/28/2024 2:38 PM EST 05/28/2024 3:15 PM EST us Gianni Jones MD LAB BLOOD ORDERABLES Final Resu lt Performing Organization Address [facility] de Phone Number [facility] [address] [place] [address], [place] [phone] * Sedimentation rate (05/28/2024 2:38 PM EST) Sed Rate 9 0 - 20 mm/hr LAB HEMETOLOGY METHOD 05/28/2024 3:37 PM EST [facility] Blood Venous blood specimen / Unknown 05/28/2024 2:38 PM EST 05/28/2024 3:15 PM EST us Gianni Jones MD LAB BLOOD ORDERABLES Final Resu lt Performing Organization Address [facility]/ZIP Co de Phone Number [facility] [address] [place] [address], [place] [phone] documented in this encounter Visit Diagnoses Diagnosis Rheumatoid arthritis, unspecified documented in this encounter Care Teams Associate Director Of Biostatistics Relationship Specialty Start Date End Date Don Escalante MD [facility] [place] [address] PCP - General Internal Medicine 04/02/24 documented as of this encounter
--- OUTSIDE RECORDS SUMMARY | 2024-07-26 13:56 | XMS_ITS | Encounter Summary ---
Author Organization [facility] Address [address] [place] [address] Care Team Providers Care Pharmacy Intake Technician Name Role Phone Don Escalante MD Primary Care Provider [phone] Reason for Visit * Episode Based Medications (Routine) - Authorized Specialty Diagnoses / Procedures Referred By Contac t Referred To Contact Diagnoses Crohn's disease of colon without complication (CMS/HCC) Amber Infante MD [address] [address] Phone: tel: fax: [facility] [address] [place] [phone] Phone: tel: fax: Referral ID Status Reason Start Date Expiration Date V isits Requested Visits Authorized [id number] Authorized 04/02/2024 04/02/2025 15 15 Encounter Details Date Type Department Care Team (Latest Contact Info) Description 07/23/2024 11:30 AM EDT Hospital Encounter [facility] [address] [place] [phone] Amber Infante MD [address] [address] Crohn's disease of colon without complication (CMS/HCC) (Primary Dx); B12 deficiency Social History Tobacco Use Types Packs/Day Years [...] 07/23/2024 11:53 AM E DT Respiratory Rate - - Oxygen Saturation 100% 07/23/2024 11:53 AM EDT Inhaled Oxygen Concentration - - Weight 94.8 kg (209 lb) 07/23/2024 11:53 AM EDT Height - - Body Mass Index 29.99 04/30/2024 3:16 PM EST documented in this encounter Progress Notes * Mariaelena Olmstead RN - 07/23/2024 11:30 AM EDT Patient arrives ambulatory with cane, to unit for treatment of renflexis. Patient states that everything is the same. No new or worsening symptoms. Patient has no questions or concerns for the provider at this time. Vitals are stable. Treatment released to pharmacy. Port accessed, +BR. Labs are drawn for Dr. Infante and Dr. Jones. NS KVO. Patient states he took tylenol before leaving the house around 1030 and refuses benadryl. 1340 Renflexis infusing at this time over 2 hours. Call molina within reach. Patient is reading a book. 1400 Lab sent a message stating the [id number] was drawn incorrectly. Tubes required for that testing is not available in this infusion suite. Patient aware that he has to have labs drawn in main lab. 1554 Patient tolerated treatment well, without adverse reaction/complaint. Next appt scheduled. Port flushed per protocol. Deaccessed, intact. Patient discharged stable, with steady gait. documented in this encounter Plan of Treatment Upcoming Encounters Date Type Department Care Team (Late st Contact Info) Description 09/17/2024 11:30 AM EDT Appointment [facility] [address] [place] [address] Scheduled Orders Name Type Priority Associated Diagnoses Orde r Schedule Interferon gamma for TB, qualitative Lab Routine Crohn's disease of colon without complication (CMS/HCC) Once for 1 Occurrences starting 07/23/2024 until 07/23/2024 Interferon gamma NIL Lab Routine Crohn's disease of colon without complication (CMS/HCC) Once for 1 Occurrences starting 07/23/2024 until 07/23/2024 Interferon gamma mitogen Lab Routine Crohn's disease of colon without complication (CMS/HCC) Once for 1 Occurrences starting 07/23/2024 until 07/23/2024 Inteferon gamma antigen 1 Lab Routine Crohn's disease of colon without complication (CMS/HCC) Once for 1 Occurrences starting 07/23/2024 until 07/23/2024 Interferon gamma antigen 2 Lab Routine Crohn's disease of colon without complication (CMS/HCC) Once for 1 Occurrences starting 07/23/2024 until 07/23/2024 documented as of this encounter Procedures Procedure Name Priority Date/Time Associated Diagnosis Comments VITAMIN B12 AND FOLATE Routine 07/23/2024 12:02 PM EDT B12 deficiency documented in this encounter Results * (ABNORMAL) Vitamin B12 and folate (07/23/2024 12:02 PM EDT) Vitamin B-12 411 250 - 900 pcg/mL LAB CHEMISTRY METHOD 07/23/2024 5:23 PM EDT [facility] Folate >20.0(H) 2.8 - 17.0 ng/ml LAB CHEMISTRY METHOD 07/23/2024 5:23 PM EDT [facility] Blood Venous blood specimen / Unknown Venipuncture / Unknown 07/23/2024 12:02 PM EDT 07/23/2024 1:38 PM EDT us Don Escalante MD LAB BLOOD ORDERABLES Final Resu lt [facility] [address] [place] [address], documented in this encounter Visit Diagnoses Diagnosis Crohn's disease of colon without complication (CMS/HCC)- Primary B12 deficiency documented in this encounter Administered Medications Inactive Administered Medications - up to 3 most recent administrations Medication Order MAR Action Action Date Dose Rate Site inFLIXimab-abda (RENFLEXIS) 600 mg in sodium chloride 310 mL IVPB 600 mg, intravenous, at 155 mL/hr, Administer over 120 Minutes, Once, On Mon07/23/24 at 1315, For 1 dose, ?? Use an in-line, sterile, non-pyrogenic, low protein-binding filter with 1.2 micron pore size or less.Indications:Crohn's disease of colon without complication (CMS/HCC) New Bag 07/23/2024 1:40 PM EDT 600 mg 155 mL/h r inFLIXimab-abda (RENFLEXIS) 600 mg in sodium chloride 310 mL IVPB 600 mg, intravenous, at 155 mL/hr, Administer over 120 Minutes, Once, On Mon07/23/24 at 1430, For 1 dose, 2 bags please Use an in-line, sterile, non-pyrogenic, low protein-binding filter with 1.2 micron pore size or less. New Bag 07/23/2024 2:40 PM EDT 600 mg 1 55 mL/hr documented in this encounter Orders Medications Ordered That Juan ht Not Have Been Administered Count Last Ordered Date First Ordered Date acetaminophen (TYLENOL) tablet 650 mg 1 04/2024 diphenhydrAMINE (BENADRYL) capsule 50 mg 1 07/23/2024 inFLIXimab-abda (RENFLEXIS) 1,200 mg in sodium chloride 620 mL IVPB 1 07/23/2024 sodium chloride 0.9 % infusion 1 07/23/2024 Nursing Count Last Ordered Date First Orde red Date ONC NURSING COMMUNICATION 1 07/23/2024 ONC NURSING COMMUNICATION 22 1 07/23/2024 ONC NURSING COMMUNICATION 5 1 07/23/2024 TREATMENT CONDITIONS 2 07/23/2024 Appointment Requests Count Last Ordered Date Fi rst Ordered Date ONCBCN INFUSION APPOINTMENT REQUEST 06 1 documented in this encounter Care Teams Pharmacy Intake Technician Relationship Specialty Start Date End Date Don Escalante MD [address] [facility] [place] [address] PCP - General Internal Medicine 04/02/24 documented as of this encounter
== END 2024-07-26 12:46 | disposition home or self-care (01) ==
LOC: HO.PMC 11:55
PROVIDERS: PCP Internal Medicine; Referring Provider Internal Medicine; Visit Provider Internal Medicine
DX: M48.02 Spinal stenosis, cervical region (principal)
CPT/HCPCS: 99204

== ENCOUNTER → 2024-07-26 11:55 | Outpatient (BNVA) | payer MEDICARE, SELFPAY | PROVIDERS: PCP Internal Medicine; Referring Provider Internal Medicine; Visit Provider Internal Medicine | DX: M48.02 Spinal stenosis, cervical region (principal) | CPT/HCPCS: 99202 ==

== ENCOUNTER → 2024-08-12 12:52 | Outpatient (BNV) | payer MEDICARE, SELFPAY | PROVIDERS: PCP Internal Medicine Hematology & Oncology; Visit Provider Radiology Diagnostic Radiology | DX: M47.812 Spondylosis without myelopathy or radiculopathy, cervical region (principal); M99.61 Osseous and subluxation stenosis of intervertebral foramina of cervical region | CPT/HCPCS: 72141 ==

== ENCOUNTER 2024-08-12 13:01 | Outpatient (REF) | payer MEDICARE, SELFPAY ==
--- NOTE | ~2024-08-12 | MR_ITS ---
EXAMINATION: MR CERVICAL SPINE WITHOUT CONTRAST CLINICAL INFORMATION: Spinal stenosis, cervical region. COMPARISON: None available. TECHNIQUE: MRI of the cervical spine was obtained using routine sequences without contrast. FINDINGS: Craniocervical junction is intact. No bone marrow STIR signal abnormality. Multilevel marginal osteophyte formation and disc desiccation, C4 C7. Grade 1 retrolisthesis C5-6. Cervical spinal cord signal is normal. C2-3: No disc herniation. No neuroforamina stenosis. C3-4: Broad-based disc osteophyte complex formation abutting the cord. No cord signal abnormality. No cord compression. Bilateral neuroforamina stenosis on a degenerative basis. C4-5: Broad-based disc osteophyte complex formation resulting in ventral deformity of the spinal cord. Bilateral neuroforamina stenosis on a degenerative basis. C5-6: Broad-based disc osteophyte complex formation. CSF effacement of the thecal sac. Flattening of the spinal cord. Bilateral neuroforamina narrowing, right greater than left on a degenerative basis. C6-7: Broad-based disc osteophyte complex formation abutting the cord. Bilateral neuroforamina narrowing on a degenerative basis. C7-T1: Right subarticular and foraminal broad-based disc herniation resulting in ventral deformity of the spinal cord. No cord signal abnormality. Right neuroforamina narrowing. No prevertebral compartment hematoma, mass or fluid collection. Flow void signal within the main vessels is normal. Codominant vertebral arteries. MR/MR cervical spine wo con IMPRESSION: Multilevel cervical spondylosis resulting in central spinal canal stenosis at C4-5, C5-6 and C6-7 levels without cord edema and or myelopathy. Multilevel neuroforamina narrowing/stenosis more conspicuous at C4-5, C5-6. Right subarticular and foraminal broad-based disc herniation C7-T1 without cord compression or myelopathy. Electronically signed by: Jimmy Broderick MD 08/13/2024 12:49 PM EDT
--- OUTSIDE RECORDS SUMMARY | 2024-08-12 13:06 | XMS_ITS | Encounter Summary ---
Author Organization [facility] Address [address] [employer] [facility] [address] [place] [address] Phone Care Team Providers Care Payroll And Benefits Analyst Name Role Phone Don Escalante MD Primary Care Provider [phone] Encounter Details Date Type Department Care Team (Late st Contact Info) Description 09/05/2023 Procedure [facility] [address] [place] [address] Social History Tobacco Use Types Packs/Day Years [...] documented as of this encounter Care Teams Payroll And Benefits Analyst Relationship Specialty Start Date End Date Don Escalante MD [address] [place] [address] PCP - General Internal Medicine 01/23/23 documented as of this encounter Additional Source Comments The information contained in this document represents components of the legal health record. It is not the complete legal health record.[facility]
--- OUTSIDE RECORDS SUMMARY | 2024-08-12 13:06 | XMS_ITS | Encounter Summary ---
Author Organization [facility] Address [address] [facility] [address] [place] [address] Phone Care Team Providers Care Maintenance And Custodian Supervisor Name Role Phone Don Escalante MD Primary Care Provider [phone] Encounter Details Date Type Department Care Team (Late st Contact Info) Description 02/16/2023 Telephone [facility] Department of Neurosurgery [address] [place] [address] Aniket Rome [address] [place] [address] [email or web address] Social History Tobacco Use Types [...] documented as of this encounter Care Teams Maintenance And Custodian Supervisor Relationship Specialty Start Date End Date Don Escalante MD [address] [place] [address] PCP - General Internal Medicine 01/23/23 documented as of this encounter Additional Source Comments The information contained in this document represents components of the legal health record. It is not the complete legal health record.[facility]
--- OUTSIDE RECORDS SUMMARY | 2024-08-12 13:06 | XMS_ITS | Clinical Summary ---
Author Organization [facility] [place] [address] Phone Care Team Providers Care Gun Stocker Name Role Phone Don Escalante MD Primary Care Provider [phone] Allergies Active Allergy Reactions Criticality Noted Date [...] DAY 28 tablet 5 08/16/19 25 Active LORazepam (ATIVAN) 1 mg tablet TAKE ONE TABLET BY MOUTH ONE TIME EACH DAY IF NEEDED FOR ANXIETY, FOR UP TO 28 DAYS. MAX DAILY AMOUNT = 1MG. 28 tablet 5 07/19/19 25 Discontinued Active Problems Problem Noted Date Diagnosed Date Peripheral neuropathy 04/26/2024 Overview (04/26/2024): DX:Peripheral neuropathy Rheumatoid arthritis ([facility] V24, [facility] V28) 04/26/2024 Crohn's disease of colon wit hout complication ([facility] V24, [facility] V28) 04/02/2024 Idiopathic peripheral neuropathy 08/20/2019 Overview (04/26/2024): 09/2019: [...] (04/26/2024): DX:Coronary artery disease; COMMENT: S/p Ant WI with VFib arrest 05/01- LAD stents placed- Liberte/Vison S/p Ant WI with VFib arrest 05/01- LAD stents placed- Liberte/Vison Inflammatory polyarthropathy ([facility] V24, [facility]/ [facility] V28) 04/15/2005 Overview (04/26/2024): assoc with Crohn's RF Neg Methotrexate added to Remicade 12/2002 Crohn disease ([facility]/H[facility] V24, [facility] V28) 005 Overview (04/26/2024): with associated arthritis; on Remicade [...] a possible side effect. Now following with [facility] GI- Dr De L aVega CAD (coronary artery disease) Overview (04/26/2024): DX:CAD (coronary artery disease); COMMENT: S/p Ant WI with VFib arrest 05/01- LAD stents placed- Liberte/Vison Encounters Date Type Department Care Team Description 07/26/2024 Telephone Internal Medicine - [address] [phone] Dee Tracy [place] Results 07/23/2024 11:30 AM EDT - 07/23/2024 11:59 PM EDT Hospital Encounter [facility] [address] [phone] Amber Infante MD Crohn's disease of colon without complication ([facility] V24, [facility] V28) (Primary Dx); B12 deficiency Discharge Disposition: Home or Self Care 07/23/2024 Lab Requisition [facility] [address] [facility] [place] [address] Gianni Jones MD Rheumatoid arthritis, unspecified ([facility] V24, [facility] V28) 07/16/2024 Telephone Internal Medicine - [address] [phone] Eloisa Borges [place] 06/28/2024 Telephone Internal Medicine - [address] [phone] Don Escalante MD Forms/questionnaires (Medical Clearance Form) 06/20/2024 Telephone Pediatrics - [address] [place] [address] Don Escalante MD Referral 05/28/2024 11:00 AM EST - 05/28/2024 11:59 PM EST Hospital Encounter [facility] [address] [facility] 2nd [place] [address] Amber Infante MD Crohn's disease of colon without complication ([facility] V24, [facility] V28); Rheumatoid arthritis, involving unspecified site, unspecified whether rheumatoid factor present ([facility] V24, [facility] V28); Muscle spasm; History of thyroid disease Discharge Disposition: Home or Self Care 05/28/2024 Lab Requisition [facility] - [facility] Lab [address] [facility] [place] [address] Gianni Jones MD Rheumatoid arthritis, unspecified ([facility] V24, [facility] V28) from Last 3 Months Immunizations Name Administration [...] Surgery Date Site/Laterality Comments CHOLECYSTECTOMY 10/2011 PROCEDURE: CO LAPAROSCOPY SURG CHOLECYSTECTOMY BOWEL RESECTION 1980 PROCEDURE: [...] PROSTATE SURGERY UPPER GASTROINTESTINAL ENDOSCOPY 10/13/2015 PROCEDURE: CO UPPER GI ENDOSCOPY PERFORMED; COMMENT: Visually normal on ome 40 mg a day; esophageal bx: minimal histologic signs of reflux. OTHER SURGICAL HISTORY 11/2015 PROCEDURE: PORT, INDWELLING, IMP; COMMENT: for Remicade HERNIA REPAIR 12/15/2015 PROCEDURE: HISTORICAL HERNIA REPAIR/AMRVIN; COMMENT: hernia repair at [facility] OTHER SURGICAL HISTORY 05/01/2016 PROCEDURE: ---- INCISE/DRAIN ----; COMMENT: [facility]; severe MRSA infection right thigh. COLONOSCOPY 09/05/2016 PROCEDURE: HISTORICAL COLONOSCOPY; COMMENT: No active Crohn's, no polyps, normal postoperative appearance. No dysplasia on bx. CATARACT EXTRACTION 01/2017 Right PROCEDURE: HISTORICAL CATARACT REMOVAL UPPER GASTROINTESTINAL ENDOSCOPY 06/27/2011 PROCEDURE: CO UPPER GI ENDOSCOPY PERFORMED; COMMENT: solitary small erosion at the EGJ, not on PPI treatment. COLONOSCOPY 07/17/2017 PROCEDURE: HISTORICAL COLONOSCOPY; COMMENT: [facility]; hosp for SBO; solitary ulcer mid transverse colon; 4 mm polyps ? 2 ; pathology: tubular adenomas. BOWEL RESECTION 10/09/2017 PROCEDURE: HISTORICAL BOWEL RESECTION; COMMENT: [facility]; segmental resection TC and mesh; colo-colostomy. ABDOMINAL SURGERY 03/2020 PROCEDURE: HISTORICAL ABDOMINAL SURGERY; COMMENT: lysis of adhesions at [facility] COLONOSCOPY 10/02/2020 PROCEDURE: HISTORICAL COLONOSCOPY; COMMENT: No visibly active Crohn's disease; solitary 6 mm polyp; multiple random biopsies obtained; anastomoses looked normal. Polyp = tubular adenoma. Bx = no dysplasia. Medical History Medical History Date Comments Other vitamin B12 deficiency anemia DX:Other vitamin B12 deficiency anemia; COMMENT: due to surgery for Crohn's Small bowel obstruction (CMS /HCC V24, CMS/HCC V28) 10/2006 DX:Small bowel obstruction ( HCC); COMMENT: 2nd episode Family history of colonic polyps 06/27/2007 DX:Family history of colonic polyps; COMMENT: One sister with diagnosis of colonic polyps in her 50s. 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 DX :Osteoarthritis cervical spine CAD (coronary artery disease) 05/03/2007 DX :CAD (coronary artery disease); COMMENT: S/p Ant WI with VFib arrest 05/01- 2 LAD stents placed- Liberte/Vison Unspecified inflammatory polyarthropathy [...] DX:Coron keenan artery disease; COMMENT: S/p Ant WI with VFib arrest 05/01- 2 LAD stents placed- Liberte/Vison Peripheral neuropathy 04/26/2024 DX:Periphe ral neuropathy Hyperlipidemia DX:Hyperlipidemi a Essential hypertension DX:Essent ial hypertension Irritable bowel syndrome DX:Irri table bowel syndrome Crohn's disease (CMS/HCC V24 , CMS/HCC V28) DX:Crohn's disease (HCC) History of small bowel obstruction [...] Info) Description 09/17/2024 11:30 AM EDT Appointment [facility] [address] [facility] 2nd [place] [address] Health Maintenance Due Date Last Done Comments Zoster Vaccines (1 of 2) 1969 DTaP,Tdap,and Td Vaccines (3 - Td or Tdap) 08/27/2020 08/27/2010, 06/28/1999 Social Influencers of Health Screening 04/02/2022 Cholesterol Screening (Lipid Panel) 12/08/2022 12/08/2017 COVID-19 Vaccine (8 - Moderna risk season) 2024 01/10/2024, 01/23/2023, 02/07/2022, Additional history exists Depression Screening 07/30/2024 07/31/2023 Medicare Annual Wellness Visit 07/30/2024 07/31/2023 Falls Risk Assessment 05/28/2025 05/28/2024, 024 Hypertension/CHF/CAD Annual BMP Blood Test 07/23/2025 07/23/2024, 05/28/2024, 04/02/2024, Additional history exists Colorectal Cancer Screening: Colonoscopy 10/02/2025 10/02/2020 Hepatitis C Screening Completed 01/20/2005 Pneumococcal Vaccine: 50+ Years Completed 04/02/2018, 07/15/2014, 03/10/2010 RSV Immunization Adult Patients Completed 05/26/2023 Influenza Vaccine Completed 01/10/2024, , 01/11/2023, Additional [...] age to complete this topic Meningococcal B Vaccine Aged Out No l onger eligible based on patient's age to complete [...] 05/28/2024 2:38 PM EST Rheumatoid arthritis, unspecified ([facility]) SST - GOLD Routine 05/28/2024 2:38 PM [...] Routine 05/28/2024 2:34 PM EST Muscle spasm HM DEPRESSION SCREENING Routine 07/31/2023 HM FALLS RISK ASSESSMENT Routine 07/31/2023 HM COLONOSCOPY Routine 10/02/2020 LIPID PANEL Routine 12/08/2017 HM HEPATITIS C SCREENING Routine 01/20/2005 from Last 3 Months or Most Recently Relevant to Health Maintenance Results * SST tube (07/23/2024 12:05 PM EDT) Only the most recent of2 resultswithin the time period is included. [facility] Extra Tube Hold for add-ons. 07/23/2024 3:01 PM EDT [facility] Comment:Auto resulted. Blood Venous blood specimen / Unknown 07/23/2024 12:05 PM EDT 07/23/2024 1:38 PM EDT us Gianni Jones MD LAB BLOOD ORDERABLES Final Resu lt [facility] [address] [place] [address], [place] [phone] * (ABNORMAL) CBC auto differential (07/23/2024 12:05 PM EDT) Only the most recent of2 resultswithin the time period is included. [facility] WBC 6.6 4.8 - 10.8 K/mcL LAB HEMETOLOGY METHOD 07/23/2024 1:53 PM EDT [facility] RBC 3.80(L) 4.50 - 5.50 M/mcL LAB HEMETOLOGY METHOD 07/23/2024 1:53 PM EDT [facility] Hemoglobin 13.3(L) 13.5 - 17.5 g/dL LAB HEMETOLOGY METHOD 07/23/2024 1:53 PM EDT [facility] Hematocrit 37.9(L) 42.0 - 54.0 % LAB HEMETOLOGY METHOD 07/23/2024 1:53 PM EDT [facility] MCV 100.8(H) 79.0 - 98.0 FL LAB HEMETOLOGY METHOD 07/23/2024 1:53 PM EDT [facility] MCH 35.4(H) 27.0 - 32.0 pcg LAB HEMETOLOGY METHOD 07/23/2024 1:53 PM EDT [facility] MCHC 35.1 32.0 - 37.0 g/dL LAB HEMETOLOGY METHOD 07/23/2024 1:53 PM EDT [facility] RDW 12.8 11.0 - 15.0 % LAB HEMETOLOGY METHOD 07/23/2024 1:[facility] Platelets 233 130 - 400 K/mcL LAB HEMETOLOGY METHOD 07/23/2024 1:53 PM EDT [facility] MPV 9.8 7.0 - 11.0 FL LAB HEMETOLOGY METHOD 07/23/2024 1:53 PM [facility] NRBC 0.0 <1.0 % LAB HEMETOLOGY METHOD 07/23/2024 1:53 PM [facility] NRBC Absolute 0.00 <0.10 K/mcL LAB HEMETOLOGY METHOD 07/23/2024 1:53 PM EDT [facility] Neutrophils Relative 67.8 % LAB HEMETOLOGY METHOD 07/23/2024 1:53 PM EDT [facility] Lymphocytes Relative 21.9 % LAB HEMETOLOGY METHOD 07/23/2024 1:53 PM [facility] Monocytes Relative 7.0 % LAB HEMETOLOGY METHOD 07/23/2024 1:53 PM [facility] Eosinophils Relative 2.7 % LAB HEMETOLOGY METHOD 07/23/2024 1:53 PM T [facility] Basophils Relative 0.3 % LAB HEMETOLOGY METHOD 07/23/2024 1:53 PM [facility] Immature Granulocytes Relative 0.3 % LAB HEMETOLOGY METHOD 07/23/2024 1:53 PM EDT [facility] Neutrophils Absolute 4.46 1.50 - 7.00 K/mcL LAB HEMETOLOGY METHOD 07/23/2024 1:53 PM EDT [facility] Lymphocytes Absolute 1.44 1.00 - 5.00 K/mcL LAB HEMETOLOGY METHOD 07/23/2024 1:53 PM EDT [facility] Monocytes Absolute 0.46 0.20 - 1.00 K/mcL LAB HEMETOLOGY METHOD 07/23/2024 1:53 PM EDT [facility] Eosinophils Absolute 0.18 0.00 - 0.50 K/[facility] LAB HEMETOLOGY METHOD 07/23/2024 1:53 PM EDT [facility] Basophils Absolute 0.02 0.00 - 0.20 K/[facility] LAB HEMETOLOGY METHOD 07/23/2024 1:53 PM EDT [facility] Immature Granulocytes Absolute 0.02 0.00 - 0.03 K/[facility] LAB HEMETOLOGY METHOD 07/23/2024 1:53 PM EDT [facility] Blood Venous blood specimen / Unknown 07/23/2024 12:05 PM EDT 07/23/2024 1:38 PM EDT us Gianni Jones MD LAB BLOOD ORDERABLES Final Resu lt [facility] [address] [place] [address], * Creatinine (07/23/2024 12:05 PM EDT) Only the most recent of2 resultswithin the time period is included. Creatinine 0.82 0.70 - 1.30 mg/dL LAB CHEMISTRY METHOD 07/23/2024 4:53 PM EDT [facility] eGFR 93 >=60 mL/min/1. 73m2 LAB CHEMISTRY METHOD 07/23/2024 4:53 PM EDT [facility] Comment:Calculation based on the??Chronic Kidney Disease Epidemiology Collaboration (CKD-EPI) equation refit??without adjustment for race. Blood Venous blood specimen / Unknown 07/23/2024 12:05 PM EDT 07/23/2024 1:38 PM EDT us Gianni Jones MD LAB BLOOD ORDERABLES Final Resu lt Performing Organization Address City/[facility]/ZIP Co de Phone Number [facility] [address] [place] [address], [place] [phone] * Sedimentation rate (07/23/2024 12:05 PM EDT) Only the most recent of2 resultswithin the time period is included. Sed Rate 11 0 - 20 mm/hr LAB HEMETOLOGY METHOD 07/23/2024 2:16 PM EDT [facility] Blood Venous blood specimen / Unknown 07/23/2024 12:05 PM EDT 07/23/2024 1:38 PM EDT us Gianni Jones MD LAB BLOOD ORDERABLES Final Resu lt Performing Organization Address [facility]/ZIP Co de Phone Number [facility] [address] [place] [address], [place] [phone] * C-reactive protein (07/23/2024 12:05 PM EDT) Only the most recent of2 resultswithin the time period is included. C-Reactive Protein <0.29 <=0.50 mg/dL LAB CHEMISTRY METHOD 07/23/2024 4:53 PM EDT [facility] Blood Venous blood specimen / Unknown 07/23/2024 12:05 PM EDT 07/23/2024 1:38 PM EDT us Gianni Jones MD LAB BLOOD ORDERABLES Final Resu lt Performing Organization Address City/[facility]/ZIP Co de Phone Number [facility] [address] [place] [address], [place] [phone] * Alanine aminotransferase (07/23/2024 12:05 PM EDT) Only the most recent of2 resultswithin the time period is included. ALT (SGPT) 40 10 - 60 unit/L LAB CHEMISTRY METHOD 07/23/2024 4:53 PM EDT [facility] Blood Venous blood specimen / Unknown 07/23/2024 12:05 PM EDT 07/23/2024 1:38 PM EDT us Gianni Jones MD LAB BLOOD ORDERABLES Final Resu lt Performing Organization Address [facility]/ZIP Co de Phone Number [facility] [address] [place] [address], [place] [phone] * Aspartate aminotransferase (07/23/2024 12:05 PM EDT) Only the most recent of2 resultswithin the time period is included. AST (SGOT) 22 10 - 42 unit/L LAB CHEMISTRY METHOD 07/23/2024 5:09 PM EDT [facility] Blood Venous blood specimen / Unknown 07/23/2024 12:05 PM EDT 07/23/2024 1:38 PM EDT us Gianni Jones MD LAB BLOOD ORDERABLES Final Resu lt Performing Organization Address City/[facility]/ZIP Co de Phone Number [facility] [address] [place] [address], [place] [phone] * Albumin (07/23/2024 12:05 PM EDT) Only the most recent of2 resultswithin the time period is included. Albumin 3.8 3.2 - 5.0 g/dL LAB CHEMISTRY METHOD 07/23/2024 4:53 PM EDT [facility] Blood Venous blood specimen / Unknown 07/23/2024 12:05 PM EDT 07/23/2024 1:38 PM EDT Gianni Jones MD LAB BLOOD ORDERABLES Final Resu lt Performing Organization Address City/[facility]/ZIP Co de Phone Number [facility] [address] [place] [address], [place] [phone] * (ABNORMAL) Vitamin B12 and folate (07/23/2024 12:02 PM EDT) [facility] Vitamin B-12 411 250 - 900 pcg/mL LAB CHEMISTRY METHOD 07/23/2024 5:23 PM EDT [facility] Folate >20.0(H) 2.8 - 17.0 ng/ml LAB CHEMISTRY METHOD 07/23/2024 5:23 PM EDT [facility] Blood Venous blood specimen / Unknown Venipuncture / Unknown 07/23/2024 12:02 PM EDT 07/23/2024 1:38 PM EDT Don Escalante MD LAB BLOOD ORDERABLES Final Resu lt Performing Organization Address [facility]/ZIP Co de Phone Number [facility] [address] [place] [address], [place] [phone] * Lavender tube (05/28/2024 2:38 PM EST) [facility] Extra Tube Hold for add-ons. 05/28/2024 5:01 PM EST [facility] Comment:Auto resulted. Blood Venous blood specimen / Unknown 05/28/2024 2:38 PM EST 05/28/2024 3:15 PM EST Gianni Jones MD LAB BLOOD ORDERABLES Final Resu lt Performing Organization Address City/[facility]/ZIP Co de Phone Number [facility] [address] [place] [address], [place] [phone] * Thyroid stimulating hormone with reflex to free t4 and free t3 (05/28/2024 2:34 PM EST) [facility] TSH 0.90 0.40 - 4.00 mcIU/mL LAB CHEMISTRY METHOD 05/28/2024 4:04 PM EST [facility] Blood Blood sample taken from central line / Unknown Existing Catheter / Unknown 05/28/2024 2:34 PM EST 05/28/2024 3:16 PM EST Don Escalante MD LAB BLOOD ORDERABLES Final Resu lt [facility] [address] [place] [address], [place] [phone] * Magnesium (05/28/2024 2:34 PM EST) [facility] Magnesium 2.1 1.9 - 2.6 mg/dL LAB CHEMISTRY METHOD 05/28/2024 3:48 PM EST [facility] Blood Blood sample taken from central line / Unknown Existing Catheter / Unknown 05/28/2024 2:34 PM EST 05/28/2024 3:16 PM EST Don Escalante MD LAB BLOOD ORDERABLES Final Resu lt [facility] [address] [place] [address], [place] [phone] * Falls Risk Assessment (07/31/2023) [facility] Falls Risk Assessment Abstracted Historical Provider HEALTH MAINTENANCE Final Result * Depression Screening (07/31/2023) Pathologist [facility] Depression Screening Abstracted Historical Provider HEALTH MAINTENANCE Final Result * Colonoscopy (10/02/2020) [facility] Colonoscopy No Interpretation , Abstracted Anatomical Region Laterality Modality Other Historical Provider HEALTH MAINTENANCE Final Result * (ABNORMAL) Lipid panel (12/08/2017) LDL/HDL Ratio 3 0 - 4 Triglycerides 162(A) 0 - 150 mg/dL Cholesterol 119 0 - 200 mg/dL HDL 40 >=40 mg/dL LDL Cholesterol 47 0 - 100 mg/dL Blood Venous blood specimen / Unknown Historical Provider LAB BLOOD ORDERABLES Naina l Result * Hepatitis C Screening (01/20/2005) Hepatitis C Screening Abstracted Historical Provider HEALTH MAINTENANCE Edited Result - Final from Last 3 Months or Most Recently Relevant to Health Maintenance Insurance MEDICARE [facility] Advance Directives Documents on File Type Date Recorded Patient School Curriculum Developer Expl anation Health Care Decision (hx) 01/05/2010 [...] (hx) 01/05/2010 AD WANG DIRECTIVE Care Teams Gun Stocker Relationship Specialty Start Date End Date Don Escalante MD [address] [place] [address] [place] [address] PCP - General Internal Medicine 04/02/24
--- OUTSIDE RECORDS SUMMARY | 2024-08-12 13:06 | XMS_ITS | Encounter Summary ---
Author Organization [facility] Address [address] [employer] [facility] [address] [place] [address] Phone Care Team Providers Care Housefellow Name Role Phone Don Escalante MD Primary Care Provider [phone] Encounter Details Date Type Department Care Team (Late st Contact Info) Description 06/29/2023 Procedure Pass [address] [address] Social History Tobacco Use Types Packs/Day Years [...] documented as of this encounter Care Teams Housefellow Relationship Specialty Start Date End Date Don Escalante MD [address] [place] [address] [place] [address] PCP - General Internal Medicine 01/23/23 documented as of this encounter Additional Source Comments The information contained in this document represents components of the legal health record. It is not the complete legal health record.[facility]
--- OUTSIDE RECORDS SUMMARY | 2024-08-12 13:06 | XMS_ITS | Encounter Summary ---
Author Organization [facility] Address [address] [address] Phone Care Team Providers Care Hospice Bereavement Coordinator Name Role Phone Don Escalante MD Primary Care Provider [phone] Encounter Details Date Type Department Care Team (Late st Contact Info) Description 09/05/2023 Procedure Pass [facility] Periop [address] [place] [address] Social History Tobacco Use Types Packs/Day Years [...] documented as of this encounter Care Teams Hospice Bereavement Coordinator Relationship Specialty Start Date End Date Don Escalante MD [address] [place] [phone] PCP - General Internal Medicine 01/23/23 documented as of this encounter Additional Source Comments The information contained in this document represents components of the legal health record. It is not the complete legal health record.[facility]
--- OUTSIDE RECORDS SUMMARY | 2024-08-12 13:06 | XMS_ITS | Encounter Summary ---
Author Organization [facility] Address [address] [employer] [facility] [address] [place] [address] Phone Care Team Providers Care Housekeeping Staff Name Role Phone Don Escalante MD Primary Care Provider [phone] Encounter Details Date Type Department Care Team (Late st Contact Info) Description 09/05/[address] [facility] [address] [place] [address] Social History Tobacco Use Types Packs/Day Years [...] documented as of this encounter Care Teams Housekeeping Staff Relationship Specialty Start Date End Date Don Escalante MD [address] [place] [address] PCP - General Internal Medicine 01/23/23 documented as of this encounter Additional Source Comments The information contained in this document represents components of the legal health record. It is not the complete legal health record.[facility]
--- OUTSIDE RECORDS SUMMARY | 2024-08-12 13:06 | XMS_ITS | Encounter Summary ---
Author Organization [facility] Address [address] [employer] [facility] [address] [place] [address] Phone Care Team Providers Care Cephalometric Technician Name Role Phone Don Escalante MD Primary Care Provider Encounter Details Date Type Department Care Team (Late st Contact Info) Description 03/28/2023 Procedure Pass [facility] [address] [place] [address] Social History Tobacco Use Types Packs/Day Years [...] documented as of this encounter Care Teams Cephalometric Technician Relationship Specialty Start Date End Date Don Escalante MD [address] [place] [address] [place] [address] PCP - General Internal Medicine 01/23/23 documented as of this encounter Additional Source Comments The information contained in this document represents components of the legal health record. It is not the complete legal health record.[facility]
--- OUTSIDE RECORDS SUMMARY | 2024-08-12 13:06 | XMS_ITS | Clinical Summary ---
Author Organization [facility] Address [address] [address] Phone Care Team Providers Care Mobile Product Manager Name Role Phone Don Escalante MD Primary Care Provider [phone] Allergies Active Allergy Reactions Criticality Noted Date [...] 08/27/2020 08/27/2010, 000 BLOOD PRESSURE 08/17/2023 02/15/2023 COVID-19 VACCINE ( season) 2023 01/23/2023, 02/07/2022, [...] this topic Medical Devices Implanted Type Area Car Repair Supervisor Device Identifier Shelf Expiration Date Model / Serial / Lot Spine Lonny 5.5x45mm Expedium Titanium Curved Lordotic Line Thoracolumbar - [id number] Implanted:Qty: 2 on 09/05/2023 by Mega Peterson MD at [facility] NODATA N/A: Back JNJ DEPUY SYNTHES SPINE 09/05/2023 [id number] / / Coronary Stent Pliafx Prime 5.0cc Freeze Dried - [id number] Implanted:Qty: 1 on 09/05/2023 by Mega Peterson MD at [facility] N/A: [facility] [id number] 04/07/2028 -1800-05 / [id number] / [id number] Screw Spinal 7x40mm Polyaxial Expedium Verse 5.5 - [id number] Implanted:Qty: 1 on 09/05/2023 by Mega Peterson MD at [facility] N/A: Back [employer]NJ DEPUY SYNTHES SPINE [id number] / / Screw Spinal 7x45mm Polyaxial Expedium Verse 5.5 - [id number] Implanted:Qty: 1 on 09/05/2023 by Mega Peterson MD at [facility] N/A: Back [employer]NJ DEPUY SYNTHES SPINE [id number] / / Screw Spinal 7x50mm Polyaxial Expedium Verse 5.5 - [id number] Implanted:Qty: 1 on 09/05/2023 by Mega Peterson MD at [facility] N/A: Back JNJ DEPUY SYNTHES SPINE [id number] / / Screw Implanted:Qty: 1 on 09/05/2023 by Mega Peterson MD at [facility] N/A: Back DEPUY SPINE Depuy Spine Caps Implanted:Qty: 4 on 09/05/2023 by Mega Peterson MD at [facility] Bilater al: Back 09/05/2023 / [id number] / Depuy Spine Implanted:Qty: 1 on 09/05/2023 by Mega Peterson MD at [facility] N/A: Back 09/05/2023 / [id number] / Advance Directives For more information, please contact: [phone] (9AM - 5PM [place], Monday-Monday) Documents on File Type Date Recorded Patient Rail Bender Expl anation Healthcare Proxy 09/05/2023 * Full Code (Latest Code Status on File) Date Activated Date Inactivated Comments 03/28/2023 8:10 PM Question Answer Comments Code Status Confirmed With: Patient Care Teams Mobile Product Manager Relationship Specialty Start Date End Date Don Escalante MD [address] [place], [place] [address] [address] PCP - General Internal Medicine 01/23/23 Additional Source Comments The information contained in this document represents components of the legal health record. It is not the complete legal health record.[facility]
--- OUTSIDE RECORDS SUMMARY | 2024-08-12 13:06 | XMS_ITS | Encounter Summary ---
Author Organization [facility] Address [address] [place] [address] Care Team Providers Care Senior Clinical Data Manager Name Role Phone Don Escalante MD Primary Care Provider [phone] Encounter Details Date Type Department Care Team (Late Contact Info) Description 05/28/2024 Lab Requisition [facility] - Main Lab [address] [facility] [place] [phone] Gianni Jones MD [address] [place] [phone] Rheumatoid arthritis, unspecified (CMS/HCC V24, CMS/HCC V28) Social History Tobacco Use Types Packs/Day Years [...] [facility] [address] [address] documented as of this encounter Procedures Procedure [...] Hold for add-ons. 05/28/2024 5:01 PM EST [facility] Comment:Auto resulted. Blood Venous blood specimen / Unknown 05/28/2024 2:38 PM EST 05/28/2024 3:15 PM EST us Gianni Jones MD LAB BLOOD ORDERABLES Final Resu lt [facility] [address] [place] [address], [place] [phone] * SST tube (05/28/2024 2:38 PM EST) [facility] Extra Tube Hold for add-ons. 05/28/2024 5:01 PM EST [facility] Comment:Auto resulted. Blood Venous blood specimen / Unknown 05/28/2024 2:38 PM EST 05/28/2024 3:15 PM EST us Gianni Jones MD LAB BLOOD ORDERABLES Final Resu lt [facility] [address] [place] [address], [place] [phone] * (ABNORMAL) CBC auto differential (05/28/2024 2:38 PM EST) [facility] WBC 9.3 4.8 - 10.8 K/mcL LAB HEMETOLOGY METHOD 05/28/2024 3:24 PM [facility] RBC 3.70(L) 4.50 - 5.50 M/mcL LAB HEMETOLOGY METHOD 05/28/2024 3:24 PM [facility] Hemoglobin 12.6(L) 13.5 - 17.5 g/dL LAB HEMETOLOGY METHOD 05/28/2024 3:24 PM [facility] Hematocrit 36.5(L) 42.0 - 54.0 % LAB HEMETOLOGY METHOD 05/28/2024 3:24 PM [facility] MCV 99.2(H) 79.0 - 98.0 FL LAB HEMETOLOGY METHOD 05/28/2024 3:24 PM [facility] MCH 34.2(H) 27.0 - 32.0 pcg LAB HEMETOLOGY METHOD 05/28/2024 3:24 PM [facility] MCHC 34.5 32.0 - 37.0 g/dL LAB HEMETOLOGY METHOD 05/28/2024 3:24 PM [facility] RDW 13.4 11.0 - 15.0 % LAB HEMETOLOGY METHOD 05/28/2024 3:24 PM [facility] Platelets 235 130 - 400 K/mcL LAB HEMETOLOGY METHOD 05/28/2024 3:24 PM [facility] MPV 9.6 7.0 - 11.0 FL LAB HEMETOLOGY METHOD 05/28/2024 3:24 PM [facility] NRBC 0.0 <1.0 % LAB HEMETOLOGY METHOD 05/28/2024 3:24 PM [facility] NRBC Absolute 0.00 <0.10 K/mcL LAB HEMETOLOGY METHOD 05/28/2024 3:24 PM [facility] Neutrophils Relative 68.0 % LAB HEMETOLOGY METHOD 05/28/2024 3:24 PM [facility] Lymphocytes Relative 23.7 % LAB HEMETOLOGY METHOD 05/28/2024 3:24 PM [facility] Monocytes Relative 6.3 % LAB HEMETOLOGY METHOD 05/28/2024 3:24 PM [facility] Eosinophils Relative 1.4 % LAB HEMETOLOGY METHOD 05/28/2024 3:24 PM [facility] Basophils Relative 0.2 % LAB HEMETOLOGY METHOD 05/28/2024 3:24 PM [facility] Immature Granulocytes Relative 0.4 % LAB HEMETOLOGY METHOD 05/28/2024 3:24 PM [facility] Neutrophils Absolute 6.33 1.50 - 7.00 K/mcL LAB HEMETOLOGY METHOD 05/28/2024 3:24 PM [facility] Lymphocytes Absolute 2.21 1.00 - 5.00 K/mcL LAB HEMETOLOGY METHOD 05/28/2024 3:24 PM EST [facility] Monocytes Absolute 0.59 0.20 - 1.00 K/[facility] LAB HEMETOLOGY METHOD 05/28/2024 3:24 PM EST [facility] Eosinophils Absolute 0.13 0.00 - 0.50 K/mcL LAB HEMETOLOGY METHOD 05/28/2024 3:24 PM EST [facility] Basophils Absolute 0.02 0.00 - 0.20 K/[facility] HEMETOLOGY METHOD 05/28/2024 3:24 PM EST [facility] Immature Granulocytes Absolute 0.04(H) 0.00 - 0.03 K/[facility] HEMETOLOGY METHOD 05/28/2024 3:24 PM EST [facility] Blood Venous blood specimen / Unknown 05/28/2024 2:38 PM EST 05/28/2024 3:15 PM EST Gianni Jones MD LAB BLOOD ORDERABLES Final Resu lt [facility] [address] [place] [address], [place] [phone] * Alanine aminotransferase (05/28/2024 2:38 PM EST) ALT (SGPT) 53 10 - 60 unit/L LAB CHEMISTRY METHOD 05/28/2024 3:53 PM EST [facility] Blood Venous blood specimen / Unknown 05/28/2024 2:38 PM EST 05/28/2024 3:15 PM EST us Gianni Jones MD LAB BLOOD ORDERABLES Final Resu lt [facility] [address] [place] [address], [place] [phone] * Aspartate aminotransferase (05/28/2024 2:38 PM EST) Pathologist [facility] AST (SGOT) 24 10 - 42 unit/L LAB CHEMISTRY METHOD 05/28/2024 3:53 PM EST [facility] Blood Venous blood specimen / Unknown 05/28/2024 2:38 PM EST 05/28/2024 3:15 PM EST us Gianni Jones MD LAB BLOOD ORDERABLES Final Resu lt Performing Organization Address City/[facility]/ZIP Co de Phone Number [facility] [address] [place] [address], [place] [phone] * Albumin (05/28/2024 2:38 PM EST) [facility] Albumin 3.4 3.2 - 5.0 g/dL LAB CHEMISTRY METHOD 05/28/2024 3:53 PM EST [facility] Blood Venous blood specimen / Unknown 05/28/2024 2:38 PM EST 05/28/2024 3:15 PM EST us Gianni Jones MD LAB BLOOD ORDERABLES Final Resu lt Performing Organization Address [facility] Co de Phone Number [facility] [address] [place] [address], [place] [phone] * Creatinine (05/28/2024 2:38 PM EST) [facility] Creatinine 0.80 0.70 - 1.30 mg/dL LAB CHEMISTRY METHOD 05/28/2024 3:53 PM EST [facility] eGFR 93 >=60 mL/min/1. 73m2 LAB CHEMISTRY METHOD 05/28/2024 3:53 PM EST [facility] Comment:Calculation based on the??Chronic Kidney Disease Epidemiology Collaboration (CKD-EPI) equation refit??without adjustment for race. Blood Venous blood specimen / Unknown 05/28/2024 2:38 PM EST 05/28/2024 3:15 PM EST us Gianni Jones MD LAB BLOOD ORDERABLES Final Resu lt Performing Organization Address City/[facility]/ZIP Co de Phone Number [facility] [address] [place] [address], [place] [phone] * C-reactive protein (05/28/2024 2:38 PM EST) C-Reactive Protein <0.29 <=0.50 mg/dL LAB CHEMISTRY METHOD 05/28/2024 3:53 PM EST [facility] Blood Venous blood specimen / Unknown 05/28/2024 2:38 PM EST 05/28/2024 3:15 PM EST us Gianni Jones MD LAB BLOOD ORDERABLES Final Resu lt Performing Organization Address [facility] Co de Phone Number [facility] [address] [place] [address], [place] [phone] * Sedimentation rate (05/28/2024 2:38 PM EST) Sed Rate 9 0 - 20 mm/hr LAB HEMETOLOGY METHOD 05/28/2024 3:37 PM EST [facility] Blood Venous blood specimen / Unknown 05/28/2024 2:38 PM EST 05/28/2024 3:15 PM EST us Gianni Jones MD LAB BLOOD ORDERABLES Final Resu lt Performing Organization Address City/[facility]/ZIP Co de Phone Number [facility] [address] [place] [address], [place] [phone] documented in this encounter Visit Diagnoses Diagnosis Rheumatoid arthritis, unspecified (CMS/HCC V24, CMS/HCC V28) documented in this encounter Care Teams Senior Clinical Data Manager Relationship Specialty Start Date End Date Don Escalante MD [facility] [place] [address] PCP - General Internal Medicine 04/02/24 documented as of this encounter
--- OUTSIDE RECORDS SUMMARY | 2024-08-12 13:06 | XMS_ITS | Clinical Summary ---
Author Organization [facility] Address [address] [place] [address] Care Team Providers Care Environmental Engineer Name Role Phone Don Escalante MD Primary Care Provider [phone] Allergies Active Allergy Reactions Criticality Noted Date [...] age to complete this topic Care Teams Environmental Engineer Relationship Specialty Start Date End Date Don Escalante MD [address] [facility] [place] [address] PCP - General Internal Medicine 06/27/23
--- OUTSIDE RECORDS SUMMARY | 2024-08-12 13:06 | XMS_ITS | Encounter Summary ---
Author Organization [facility] Address [address] [address] Phone Care Team Providers Care Analytical Laboratory Technician Name Role Phone [place] Clarisa Linda MD Primary Care Provider Don Escalante MD Primary Care Provider [phone] Reason for Referral * MRI/CAT Scan - Closed Specialty Diagnoses / Procedures Referred By Contac t Referred To Contact Radiology Diagnoses Hyperlipidemia, unspecified hyperlipidemia type Procedures NC Myocardial Perfusion Pharmacologic Stress Multiple System, Provider Not In, [place] [address] Referral ID Status Reason Start Date Expiration Date Visits Re quested Visits Authorized [id number] Closed 02/02/2018 02/02/2019 1 1 Encounter Details Date Type Department Care Team (Latest Contact Info) Description 02/02/2018 Transcribe [facility] [address] [place] [address] [address] [place] [address] Arabella Wright NP [address] [place] [address] Hyperlipidemia, unspecified hyperlipidemia type (Primary Dx) Social [...] documented as of this encounter Care Teams Analytical Laboratory Technician Relationship Specialty Start Date End Date Clarisa James MD [address] [place] [address] PCP - General Internal Medicine 01/07/16 01/22/23 Don Escalante MD [address] [place] [address] PCP - General Internal Medicine 01/23/23 documented as of this encounter Additional Source Comments The information contained in this document represents components of the legal health record. It is not the complete legal health record.[facility]
--- OUTSIDE RECORDS SUMMARY | 2024-08-12 13:06 | XMS_ITS | Encounter Summary ---
Author Organization [facility] Address [address] [place] [address] Care Team Providers Care Delivery Analyst Name Role Phone Don Escalante MD Primary Care Provider [phone] Encounter Details Date Type Department Care Team (Late st Contact Info) Description 07/23/2024 Lab Requisition [facility] - Main Lab [address] [place] [phone] Gianni Jones MD [address] [place] [phone] Rheumatoid arthritis, unspecified ([facility] V24, [facility] V28) Social History Tobacco Use Types Packs/Day [...] Info) Description 09/17/2024 11:30 AM EDT Appointment [facility] [address] [phone] documented as of this encounter Procedures Procedure [...] SST tube (07/23/2024 12:05 PM EDT) Pathologist [facility] Extra Tube Hold for add-ons. 07/23/2024 3:01 PM EDT [facility] Comment:Auto resulted. Blood Venous blood specimen / Unknown 07/23/2024 12:05 PM EDT 07/23/2024 1:38 PM EDT us Gianni Jones MD LAB BLOOD ORDERABLES Final Resu lt [facility] [address] [place] [address], * (ABNORMAL) CBC auto differential (07/23/2024 12:05 PM EDT) Pathologist [facility] WBC 6.6 4.8 - 10.8 K/mcL LAB HEMETOLOGY METHOD 07/23/2024 1:53 PM [facility] RBC 3.80(L) 4.50 - 5.50 M/mcL LAB HEMETOLOGY METHOD [facility] Hemoglobin 13.3(L) 13.5 - 17.5 g/dL LAB HEMETOLOGY METHOD 07/23/2024 1:[facility] Hematocrit 37.9(L) 42.0 - 54.0 % LAB HEMETOLOGY METHOD 07/23/2024 1:53 PM [facility] MCV 100.8(H) 79.0 - 98.0 FL LAB HEMETOLOGY METHOD 07/23/2024 1:53 PM [facility] MCH 35.4(H) 27.0 - 32.0 pcg LAB HEMETOLOGY METHOD 07/23/2024 1:53 PM [facility] MCHC 35.1 32.0 - 37.0 g/dL LAB HEMETOLOGY METHOD 07/23/2024 1:53 PM [facility] RDW 12.8 11.0 - 15.0 % LAB HEMETOLOGY METHOD 07/23/2024 1:53 PM [facility] Platelets 233 130 - 400 K/mcL LAB HEMETOLOGY METHOD 07/23/2024 1:53 PM [facility] MPV 9.8 7.0 - 11.0 FL LAB HEMETOLOGY METHOD 07/23/2024 1:53 PM [facility] NRBC 0.0 <1.0 % LAB HEMETOLOGY METHOD 07/23/2024 1:53 PM [facility] NRBC Absolute 0.00 <0.10 K/mcL LAB HEMETOLOGY METHOD 07/23/2024 1:53 PM [facility] Neutrophils Relative 67.8 % LAB HEMETOLOGY METHOD 07/23/2024 1:53 PM [facility] Lymphocytes Relative 21.9 % LAB HEMETOLOGY METHOD 07/23/2024 1:53 PM [facility] Monocytes Relative 7.0 % LAB HEMETOLOGY METHOD 07/23/2024 1:53 PM [facility] Eosinophils Relative 2.7 % LAB HEMETOLOGY METHOD 07/23/2024 1:53 PM [facility] Basophils Relative 0.3 % LAB HEMETOLOGY METHOD 07/23/2024 1:53 PM [facility] Immature Granulocytes Relative 0.3 % LAB HEMETOLOGY METHOD 07/23/2024 1:53 PM [facility] Neutrophils Absolute 4.46 1.50 - 7.00 K/mcL LAB HEMETOLOGY METHOD 07/23/2024 1:53 PM [facility] Lymphocytes Absolute 1.44 1.00 - 5.00 K/mcL LAB HEMETOLOGY METHOD 07/23/2024 1:53 PM [facility] Monocytes Absolute 0.46 0.20 - 1.00 K/mcL LAB HEMETOLOGY METHOD 07/23/2024 1:53 PM [facility] Eosinophils Absolute 0.18 0.00 - 0.50 K/mcL LAB HEMETOLOGY METHOD 07/23/2024 1:53 PM [facility] Basophils Absolute 0.02 0.00 - 0.20 K/mcL LAB HEMETOLOGY METHOD 07/23/2024 1:53 PM [facility] Immature Granulocytes Absolute 0.02 0.00 - 0.03 K/mcL LAB HEMETOLOGY METHOD 07/23/2024 1:53 PM [facility] Blood Venous blood specimen / Unknown 07/23/2024 12:05 PM EDT 07/23/2024 1:38 PM EDT us Gianni Jones MD LAB BLOOD ORDERABLES Final Resu lt Performing Organization Address City/[facility]/ZIP Co de Phone Number [facility] [address] [place] [address], [place] [phone] * Alanine aminotransferase (07/23/2024 12:05 PM EDT) ALT (SGPT) 40 10 - 60 unit/L LAB CHEMISTRY METHOD 07/23/2024 4:53 PM EDT [facility] Blood Venous blood specimen / Unknown 07/23/2024 12:05 PM EDT 07/23/2024 1:38 PM EDT us Gianni Jones MD LAB BLOOD ORDERABLES Final Resu lt Performing Organization Address [facility]/ZIP Co de Phone Number [facility] [address] [place] [address], [place] [phone] * Aspartate aminotransferase (07/23/2024 12:05 PM EDT) AST (SGOT) 22 10 - 42 unit/L LAB CHEMISTRY METHOD 07/23/2024 5:09 PM EDT [facility] Blood Venous blood specimen / Unknown 07/23/2024 12:05 PM EDT 07/23/2024 1:38 PM EDT us Gianni Jones MD LAB BLOOD ORDERABLES Final Resu lt Performing Organization Address City/[facility]/ZIP Co de Phone Number [facility] [address] [place] [address], [place] [phone] * Albumin (07/23/2024 12:05 PM EDT) Albumin 3.8 3.2 - 5.0 g/dL LAB CHEMISTRY METHOD 07/23/2024 4:53 PM EDT [facility] Blood Venous blood specimen / Unknown 07/23/2024 12:05 PM EDT 07/23/2024 1:38 PM EDT us Gianni Jones MD LAB BLOOD ORDERABLES Final Resu lt Performing Organization Address [facility]/ZIP Co de Phone Number [facility] [address] [place] [address], [place] [phone] * Creatinine (07/23/2024 12:05 PM EDT) Creatinine 0.82 0.70 - 1.30 mg/dL LAB CHEMISTRY METHOD 07/23/2024 4:53 PM EDT [facility] eGFR 93 >=60 mL/min/1. 73m2 LAB CHEMISTRY METHOD 07/23/2024 4:53 PM EDT [facility] Comment:Calculation based on the??Chronic Kidney Disease Epidemiology Collaboration (CKD-EPI) equation refit??without adjustment for race. Blood Venous blood specimen / Unknown 07/23/2024 12:05 PM EDT 07/23/2024 1:38 PM EDT us Gianni Jones MD LAB BLOOD ORDERABLES Final Resu lt Performing Organization Address City/[facility]/ZIP Co de Phone Number [facility] [address] [place] [address], [place] [phone] * C-reactive protein (07/23/2024 12:05 PM EDT) C-Reactive Protein <0.29 <=0.50 mg/dL LAB CHEMISTRY METHOD 07/23/2024 4:53 PM EDT [facility] Blood Venous blood specimen / Unknown 07/23/2024 12:05 PM EDT 07/23/2024 1:38 PM EDT us Gianni Jones MD LAB BLOOD ORDERABLES Final Resu lt Performing Organization Address [facility]/ZIP Co de Phone Number [facility] [address] [place] [address], [place] [phone] * Sedimentation rate (07/23/2024 12:05 PM EDT) Sed Rate 11 0 - 20 mm/hr LAB HEMETOLOGY METHOD 07/23/2024 2:16 PM EDT [facility] Blood Venous blood specimen / Unknown 07/23/2024 12:05 PM EDT 07/23/2024 1:38 PM EDT us Gianni Jones MD LAB BLOOD ORDERABLES Final Resu lt Performing Organization Address [facility] Co de Phone Number [facility] [address] [place] [address], documented in this encounter Visit Diagnoses Diagnosis Rheumatoid arthritis, unspecified (CMS/HCC V24, CMS/HCC V28) documented in this encounter Care Teams Delivery Analyst Relationship Specialty Start Date End Date Don Escalante MD [address] [place] [id number] PCP - General Internal Medicine 04/02/24 documented as of this encounter
--- OUTSIDE RECORDS SUMMARY | 2024-08-12 13:06 | XMS_ITS | Encounter Summary ---
Author Organization [facility] Address [address] [address] Phone Care Team Providers Care Vehicle Body Builder Name Role Phone Don Escalante MD Primary Care Provider [phone] Encounter Details Date Type Department Care Team ([facility] st Contact Info) Description 03/28/2023 Procedure Pass [facility] Periop [address] [place] [address] Social History Tobacco Use Types Packs/Day Years [...] documented as of this encounter Care Teams Vehicle Body Builder Relationship Specialty Start Date End Date Don Escalante MD [address] [place] [address] PCP - General Internal Medicine 01/23/23 documented as of this encounter Additional Source Comments The information contained in this document represents components of the legal health record. It is not the complete legal health record.[facility]
== END 2024-08-12 13:02 | disposition home or self-care (01) ==
LOC: HO.MRI 13:01
PROVIDERS: PCP Internal Medicine Hematology & Oncology; Visit Provider Internal Medicine
DX: M48.02 Spinal stenosis, cervical region (principal)
CPT/HCPCS: 72141

== ENCOUNTER 2024-08-16 11:47 | Outpatient (AMB) | payer MEDICARE, SELFPAY ==
[2024-08-16 11:50] VITALS: BP 126/71; PULSE 68; RESP 16; O2SAT 98; BMI 30.1
--- NOTE | 2024-08-16 11:50 | A.OFFVIS_ITS ---
Vital Signs 08/16/24 11:50 Height 5 ft 10 in Weight 210 lb BMI 30.1 BP 126/71 Blood Pressure Location Rt brachial Position Sitting Respiration 16 Pulse 68 Pulse Source Pulse Oximeter Pulse Oximetry (%) 98 Oxygen Delivery Method Room Air Intake Visit Reasons: Right Suprascapular AC Joint Inj. E Commerce Strategist Required: No Non Destructive Evaluation Manager: Non Destructive Evaluation Manager Present Accompanied by: Macho Glasgow Allergies amlodipine [From Norvasc] Allergy (Unknown, Verified 08/16/24 11:52) BLISTERS azathioprine [From IMURAN] Allergy (Unknown, Verified 08/16/24 11:52) PARANOIA,SEVERE REACTION,N/V oxycodone [From PERCOCET] Allergy (Unknown, Verified 08/16/24 11:52) ITCHING ALL OVER Medication List - Last Reconciled 08/16/24 by Dorene Thakur LPN aspirin (Adult Aspirin Regimen) 81 mg PO DAILY carbamazepine ER 200 mg PO BID duloxetine 60 mg PO DAILY folic acid 1 mg PO DAILY lorazepam 1 mg PO DAILY PRN methotrexate sodium 20 mg PO QWEEK metoprolol tartrate 25 mg PO DAILY metronidazole 250 mg PO DAILY mirabegron ER 50 mg PO DAILY pregabalin 150 mg PO DAILY ramelteon 8 mg PO BEDTIME rosuvastatin 20 mg PO DAILY tamsulosin 0.4 mg PO BEDTIME HPI HPI Right Suprascapular AC Joint Inj.: Details: History of Present Illness The patient is a 73-year-old male presenting primarily with right shoulder pain requiring intervention with injections of the shoulder joint. This pain is believed to be due to supraspinatus tendon inflammation with associated potential impingement symptoms that have persisted, necessitating treatment. Additionally, the patient suffers from neck pain related to his degenerative disc disease of the cervical spine, which is being managed with epidural steroid injections and physical therapy. Previous cervical MRI findings reported multiple-level degenerative changes but did not suggest surgical intervention at this time. The procedure discussed today involves medication injections directly targeting the shoulder to reduce inflammation and alleviate pain, with the optional continuation of prior conservative treatments for neck pain. Pain Description - Onset: Unspecified timing, ongoing issue - Location: Right shoulder and cervical spine - Radiation: Not specified - Quality: Inflammation described at supraspinatus tendon - Aggravating Factors: Previously untreated or under-treated shoulder pain - Alleviating Factors: Proposed injections for shoulder, ongoing epidural steroids, and therapy for neck Physical Exam - Musculoskeletal- Right shoulder positioned appropriately for injection; no immediate physical exam findings listed but patient tolerated procedures well Results - Imaging: Cervical MRI showing multiple-level degenerative changes without focal stenosis Pain Management - Affect: Not specified in conversation - Analgesia: Injections for targeted relief - Adverse Effects: None noted post-procedure - Activities of Daily Living: Potentially impaired by shoulder and neck pain; managed with injections and therapy - Aberrant Drug Related Behaviors: Not discussed Procedure - Sterile prep with chloraprep; 25g needle used. - AC Joint: Intra-articular injection administered with 10 mg of Kenalog mixed with 1 cc of ropivacaine 0.5% to the right shoulder AC joint. US guided. - Supraspinatus tendon injection: 30 mg Kenalog and 3 cc of ropivacaine 0.5%. US guided. - Patient consent obtained; procedure completed without complications or blood loss, with instruction for follow-up as needed based on symptom relief. Images saved. Physical Exam Vital Signs: Last Vital Signs Pulse 68 08/16/24 11:50 Resp 16 08/16/24 11:50 BP 126/71 08/16/24 11:50 Pulse Ox 98 08/16/24 11:50 Oxygen Delivery Method Room Air 08/16/24 11:50 BMI result Body Mass Index 30.1 Assessment & Plan Assessment & Plan (1) Right shoulder pain: Code(s): M25.511 - Pain in right shoulder Category: Medical Plan Patient is status post right AC and supraspinatus tendon injections. Patient tolerated procedure well and was discharged home in stable condition with discharge instructions. All questions were answered. We will follow-up via telephone or in clinic to assess response to therapy. A follow-up appointment was made during today's visit. Coding Level of Care Code Procedure Only Diagnoses Right shoulder pain M25.511
--- OUTSIDE RECORDS SUMMARY | 2024-08-16 12:40 | XMS_ITS | Encounter Summary ---
Author Organization [facility] Address [address] [place] [address] Care Team Providers Care Fast Food Shift Lead Name Role Phone Don Escalante MD Primary Care Provider [phone] Encounter Details Date Type Department Care Team [...] Info) Description 09/17/2024 11:30 AM EDT Appointment [facility] [address] [phone] documented as of this encounter Visit Diagnoses Not on filedocumented in this encounter Care Teams Fast Food Shift Lead Relationship Specialty Start Date End Date Don Escalante MD PCP - General Internal Medicine 05/11/21 04/01/24 documented as of this encounter
--- OUTSIDE RECORDS SUMMARY | 2024-08-16 12:41 | XMS_ITS | Clinical Summary ---
Author Organization [facility] Address [address] [place] [address] Care Team Providers Care Forest Pathologist Name Role Phone Don Escalante MD Primary Care Provider [phone] Allergies Active Allergy Reactions Criticality Noted Date [...] age to complete this topic Care Teams Forest Pathologist Relationship Specialty Start Date End Date Don Escalante MD [address] [facility] [place] [address] PCP - General Internal Medicine 06/27/23
--- OUTSIDE RECORDS SUMMARY | 2024-08-16 12:41 | XMS_ITS | Encounter Summary ---
Author Organization [facility] Address [address] [address] Phone Care Team Providers Care Instrument Maker And Repairer Name Role Phone Don Escalante MD Primary Care Provider [phone] Encounter Details Date Type Department Care Team (Late st Contact Info) Description 09/05/2023 Procedure Pass [facility] [address] [place] [address] Social History Tobacco Use Types Packs/Day Years [...] documented as of this encounter Care Teams Instrument Maker And Repairer Relationship Specialty Start Date End Date Don Escalante MD [address] [place] [address] PCP - General Internal Medicine 01/23/23 documented as of this encounter Additional Source Comments The information contained in this document represents components of the legal health record. It is not the complete legal health record.[facility]
--- OUTSIDE RECORDS SUMMARY | 2024-08-16 12:41 | XMS_ITS | Encounter Summary ---
Author Organization [facility] Address [address] [place] [address] Care Team Providers Care Product Marketing Consultant Name Role Phone Don Escalante MD Primary Care Provider [phone] Encounter Details Date Type Department Care Team (Late Contact Info) Description 05/28/2024 Lab Requisition [facility] - [facility] Lab [address] [facility] [place] [id number] Gianni Jones MD [address] [place] [phone] Rheumatoid arthritis, unspecified (CMS/HCC V24, CMS/HCC V28) [...] Info) Description 09/17/2024 11:30 AM EDT Appointment [facility] [address] [address] documented as of this encounter [...] Hold for add-ons. 05/28/2024 5:01 PM EST [facility] Comment:Auto resulted. Blood Venous blood specimen / Unknown 05/28/2024 2:38 PM EST 05/28/2024 3:15 PM EST us Gianni Jones MD LAB BLOOD ORDERABLES Final Resu lt [facility] [address] [place] [address], [place] [phone] * SST tube (05/28/2024 2:38 PM EST) [facility] Extra Tube Hold for add-ons. 05/28/2024 5:01 PM EST [facility] Comment:Auto resulted. Blood Venous blood specimen / Unknown 05/28/2024 2:38 PM EST 05/28/2024 3:15 PM EST us Gianni Jones MD LAB BLOOD ORDERABLES Final Resu lt [facility] [address] [place] [address], [place] [phone] * (ABNORMAL) CBC auto differential (05/28/2024 2:38 PM EST) [facility] WBC 9.3 4.8 - 10.8 K/mcL LAB HEMETOLOGY METHOD 05/28/2024 3:24 PM [facility] RBC 3.70(L) 4.50 - 5.50 M/mcL LAB HEMETOLOGY METHOD 05/28/2024 3:24 PM [facility] Hemoglobin 12.6(L) 13.5 - 17.5 g/dL LAB HEMETOLOGY METHOD 05/28/2024 3:24 PM [facility] Hematocrit 36.5(L) 42.0 - 54.0 % LAB HEMETOLOGY METHOD 05/28/2024 3:24 PM [facility] MCV 99.2(H) 79.0 - 98.0 FL LAB HEMETOLOGY METHOD 05/28/2024 3:24 PM [facility] MCH 34.2(H) 27.0 - 32.0 pcg LAB HEMETOLOGY METHOD 05/28/2024 3:24 PM [facility] MCHC 34.5 32.0 - 37.0 g/dL LAB HEMETOLOGY METHOD 05/28/2024 3:24 PM [facility] RDW 13.4 11.0 - 15.0 % LAB HEMETOLOGY METHOD 05/28/2024 3:24 PM [facility] Platelets 235 130 - 400 K/mcL LAB HEMETOLOGY METHOD 05/28/2024 3:24 PM [facility] MPV 9.6 7.0 - 11.0 FL LAB HEMETOLOGY METHOD 05/28/2024 3:24 PM [facility] NRBC 0.0 <1.0 % LAB HEMETOLOGY METHOD 05/28/2024 3:24 PM [facility] NRBC Absolute 0.00 <0.10 K/mcL LAB HEMETOLOGY METHOD 05/28/2024 3:24 PM [facility] Neutrophils Relative 68.0 % LAB HEMETOLOGY METHOD 05/28/2024 3:24 PM [facility] Lymphocytes Relative 23.7 % LAB HEMETOLOGY METHOD 05/28/2024 3:24 PM [facility] Monocytes Relative 6.3 % LAB HEMETOLOGY METHOD 05/28/2024 3:24 PM [facility] Eosinophils Relative 1.4 % LAB HEMETOLOGY METHOD 05/28/2024 3:24 PM [facility] Basophils Relative 0.2 % LAB HEMETOLOGY METHOD 05/28/2024 3:24 PM [facility] Immature Granulocytes Relative 0.4 % LAB HEMETOLOGY METHOD 05/28/2024 3:24 PM [facility] Neutrophils Absolute 6.33 1.50 - 7.00 K/mcL LAB HEMETOLOGY METHOD 05/28/2024 3:24 PM [facility] Lymphocytes Absolute 2.21 1.00 - 5.00 K/mcL LAB HEMETOLOGY METHOD 05/28/2024 3:24 PM EST [facility] Monocytes Absolute 0.59 0.20 - 1.00 K/[facility] LAB HEMETOLOGY METHOD 05/28/2024 3:24 PM EST [facility] Eosinophils Absolute 0.13 0.00 - 0.50 K/mcL LAB HEMETOLOGY METHOD 05/28/2024 3:24 PM EST [facility] Basophils Absolute 0.02 0.00 - 0.20 K/[facility] LAB HEMETOLOGY METHOD 05/28/2024 3:24 PM EST [facility] Immature Granulocytes Absolute 0.04(H) 0.00 - 0.03 K/[facility] LAB HEMETOLOGY METHOD 05/28/2024 3:24 PM EST [facility] Blood Venous blood specimen / Unknown 05/28/2024 2:38 PM EST 05/28/2024 3:15 PM EST Gianni Jones MD LAB BLOOD ORDERABLES Final Resu lt [facility] [address] [place] [address], [place] [phone] * Alanine aminotransferase (05/28/2024 2:38 PM EST) ALT (SGPT) 53 10 - 60 unit/L LAB CHEMISTRY METHOD 05/28/2024 3:53 PM EST [facility] Blood Venous blood specimen / Unknown 05/28/2024 2:38 PM EST 05/28/2024 3:15 PM EST us Gianni Jones MD LAB BLOOD ORDERABLES Final Resu lt [facility] [address] [place] [address], [place] [phone] * Aspartate aminotransferase (05/28/2024 2:38 PM EST) Pathologist [facility] AST (SGOT) 24 10 - 42 unit/L LAB CHEMISTRY METHOD 05/28/2024 3:53 PM EST [facility] Blood Venous blood specimen / Unknown 05/28/2024 2:38 PM EST 05/28/2024 3:15 PM EST us Gianni Jones MD LAB BLOOD ORDERABLES Final Resu lt Performing Organization Address City/[facility]/ZIP Co de Phone Number [facility] [address] [place] [address], [place] [phone] * Albumin (05/28/2024 2:38 PM EST) [facility] Albumin 3.4 3.2 - 5.0 g/dL LAB CHEMISTRY METHOD 05/28/2024 3:53 PM EST [facility] Blood Venous blood specimen / Unknown 05/28/2024 2:38 PM EST 05/28/2024 3:15 PM EST us Gianni Jones MD LAB BLOOD ORDERABLES Final Resu lt Performing Organization Address [facility] Co de Phone Number [facility] [address] [place] [address], [place] [phone] * Creatinine (05/28/2024 2:38 PM EST) [facility] Creatinine 0.80 0.70 - 1.30 mg/dL LAB CHEMISTRY METHOD 05/28/2024 3:53 PM EST [facility] eGFR 93 >=60 mL/min/1. 73m2 LAB CHEMISTRY METHOD 05/28/2024 3:53 PM EST [facility] Comment:Calculation based on the??Chronic Kidney Disease Epidemiology Collaboration (CKD-EPI) equation refit??without adjustment for race. Blood Venous blood specimen / Unknown 05/28/2024 2:38 PM EST 05/28/2024 3:15 PM EST us Gianni Jones MD LAB BLOOD ORDERABLES Final Resu lt Performing Organization Address City/[facility]/ZIP Co de Phone Number [facility] [address] [place] [address], [place] [phone] * C-reactive protein (05/28/2024 2:38 PM EST) C-Reactive Protein <0.29 <=0.50 mg/dL LAB CHEMISTRY METHOD 05/28/2024 3:53 PM EST [facility] Blood Venous blood specimen / Unknown 05/28/2024 2:38 PM EST 05/28/2024 3:15 PM EST us Gianni Jones MD LAB BLOOD ORDERABLES Final Resu lt Performing Organization Address [facility] Co de Phone Number [facility] [address] [place] [address], [place] [phone] * Sedimentation rate (05/28/2024 2:38 PM EST) Sed Rate 9 0 - 20 mm/hr LAB HEMETOLOGY METHOD 05/28/2024 3:37 PM EST [facility] Blood Venous blood specimen / Unknown 05/28/2024 2:38 PM EST 05/28/2024 3:15 PM EST us Gianni Jones MD LAB BLOOD ORDERABLES Final Resu lt Performing Organization Address City/[facility]/ZIP Co de Phone Number [facility] [address] [place] [address], [place] [phone] documented in this encounter Visit Diagnoses Diagnosis Rheumatoid arthritis, unspecified (CMS/HCC V24, CMS/HCC V28) documented in this encounter Care Teams Product Marketing Consultant Relationship Specialty Start Date End Date Don Escalante MD [facility] [place] [address] PCP - General Internal Medicine 04/02/24 documented as of this encounter
--- OUTSIDE RECORDS SUMMARY | 2024-08-16 12:41 | XMS_ITS | Encounter Summary ---
Author Organization [facility] Address [address] [employer] [facility] [address] [place] [address] Phone Care Team Providers Care Net C Developer Name Role Phone Don Escalante MD Primary Care Provider [phone] Encounter Details Date Type Department Care Team (Late st Contact Info) Description 03/28/2023 Procedure Pass [facility] [address] [place] [address] Social History Tobacco Use Types Packs/Day Years [...] documented as of this encounter Care Teams Net C Developer Relationship Specialty Start Date End Date Don Escalante MD [address] [place] [address] [place] [address] PCP - General Internal Medicine 01/23/23 documented as of this encounter Additional Source Comments The information contained in this document represents components of the legal health record. It is not the complete legal health record.[facility]
--- OUTSIDE RECORDS SUMMARY | 2024-08-16 12:41 | XMS_ITS | Encounter Summary ---
Author Organization [facility] Address [address] [facility] [address] [place] [address] Phone Care Team Providers Care Facility Maintenance Helper Name Role Phone Don Escalante MD Primary Care Provider [phone] Encounter Details Date Type Department Care Team (Late st Contact Info) Description 06/29/2023 Procedure Pass [address] [address] Social History Tobacco Use Types Packs/Day Years [...] documented as of this encounter Care Teams Facility Maintenance Helper Relationship Specialty Start Date End Date Don Escalante MD [address] [place] [address] [place] [address] PCP - General Internal Medicine 01/23/23 documented as of this encounter Additional Source Comments The information contained in this document represents components of the legal health record. It is not the complete legal health record.[facility]
--- OUTSIDE RECORDS SUMMARY | 2024-08-16 12:41 | XMS_ITS | Encounter Summary ---
Author Organization [facility] Address [address] [facility] [address] [place] [address] Phone Care Team Providers Care Ux Designer Name Role Phone [place] Clarisa Linda MD Primary Care Provider Don Escalante MD Primary Care Provider [phone] Reason for Referral * MRI/CAT Scan - Closed Specialty Diagnoses / Procedures Referred By Contac t Referred To Contact Radiology Diagnoses Hyperlipidemia, unspecified hyperlipidemia type Procedures NC Myocardial Perfusion Pharmacologic Stress Multiple System, Provider Not In, [place] [address] Referral ID Status Reason Start Date Expiration Date Visits Re quested Visits Authorized [id number] Closed 02/02/2018 02/02/2019 1 1 Encounter Details Date Type Department Care Team (Latest Contact Info) Description 02/02/2018 Transcribe [facility] [address] [place] [address] [address] Floor, [address] [place] [address] Arabella Wright NP [address] [place] [address] Hyperlipidemia, unspecified hyperlipidemia type (Primary Dx) Social [...] documented as of this encounter Care Teams Ux Designer Relationship Specialty Start Date End Date Clarisa James MD [address] [place] [address] PCP - General Internal Medicine 01/07/16 01/22/23 Don Escalante MD [address] [place] [address] PCP - General Internal Medicine 01/23/23 documented as of this encounter Additional Source Comments The information contained in this document represents components of the legal health record. It is not the complete legal health record.[facility]
--- OUTSIDE RECORDS SUMMARY | 2024-08-16 12:41 | XMS_ITS | Encounter Summary ---
Author Organization [facility] Address [address] [place] [address] Care Team Providers Care Librarian Head Name Role Phone Don Escalante MD Primary Care Provider [phone] Encounter Details Date Type Department Care Team (Late st Contact Info) Description 07/23/[address] [facility] [address] [place] [id number] Gianni Jones MD [address] [place] [phone] Rheumatoid arthritis, unspecified ([facility] V24, [facility] V28) Social History Tobacco Use Types Packs/Day [...] EDT Appointment [facility] [address] [phone] documented as of this encounter Procedures Procedure [...] SST tube (07/23/2024 12:05 PM EDT) Pathologist [facility] Extra Tube Hold for add-ons. 07/23/2024 3:01 PM EDT [facility] Comment:Auto resulted. Blood Venous blood specimen / Unknown 07/23/2024 12:05 PM EDT 07/23/2024 1:38 PM EDT us Gianni Jones MD LAB BLOOD ORDERABLES Final Resu lt [facility] [address] [place] [address], * (ABNORMAL) CBC auto differential (07/23/2024 12:05 PM EDT) Pathologist [facility] WBC 6.6 4.8 - 10.8 K/mcL LAB HEMETOLOGY METHOD 07/23/2024 1:53 PM [facility] RBC 3.80(L) 4.50 - 5.50 M/mcL LAB HEMETOLOGY METHOD 07/23[facility]24 [facility] Hemoglobin 13.3(L) 13.5 - 17.5 g/dL LAB HEMETOLOGY METHOD 07/23/2024 1:53 PM [facility] Hematocrit 37.9(L) 42.0 - 54.0 % LAB HEMETOLOGY METHOD 07/23/2024 1:53 PM [facility] MCV 100.8(H) 79.0 - 98.0 FL LAB HEMETOLOGY METHOD 07/23/2024 1:53 PM [facility] MCH 35.4(H) 27.0 - 32.0 pcg LAB HEMETOLOGY METHOD 07/23/2024 1:53 PM [facility] MCHC 35.1 32.0 - 37.0 g/dL LAB HEMETOLOGY METHOD 07/23/2024 1:53 PM [facility] RDW 12.8 11.0 - 15.0 % LAB HEMETOLOGY METHOD 07/23/2024 1:53 PM [facility] Platelets 233 130 - 400 K/mcL LAB HEMETOLOGY METHOD 07/23/2024 1:53 PM [facility] MPV 9.8 7.0 - 11.0 FL LAB HEMETOLOGY METHOD 07/23/2024 1:53 PM [facility] NRBC 0.0 <1.0 % LAB HEMETOLOGY METHOD 07/23/2024 1:53 PM [facility] NRBC Absolute 0.00 <0.10 K/mcL LAB HEMETOLOGY METHOD 07/23/2024 1:53 PM [facility] Neutrophils Relative 67.8 % LAB HEMETOLOGY METHOD 07/23/2024 1:53 PM [facility] Lymphocytes Relative 21.9 % LAB HEMETOLOGY METHOD 07/23/2024 1:53 PM [facility] Monocytes Relative 7.0 % LAB HEMETOLOGY METHOD 07/23/2024 1:53 PM [facility] Eosinophils Relative 2.7 % LAB HEMETOLOGY METHOD 07/23/2024 1:53 PM [facility] Basophils Relative 0.3 % LAB HEMETOLOGY METHOD 07/23/2024 1:53 PM [facility] Immature Granulocytes Relative 0.3 % LAB HEMETOLOGY METHOD 07/23/2024 1:53 PM [facility] Neutrophils Absolute 4.46 1.50 - 7.00 K/mcL LAB HEMETOLOGY METHOD 07/23/2024 1:53 PM [facility] Lymphocytes Absolute 1.44 1.00 - 5.00 K/mcL LAB HEMETOLOGY METHOD 07/23/2024 1:53 PM [facility] Monocytes Absolute 0.46 0.20 - 1.00 K/mcL LAB HEMETOLOGY METHOD 07/23/2024 1:53 PM [facility] Eosinophils Absolute 0.18 0.00 - 0.50 K/mcL LAB HEMETOLOGY METHOD 07/23/2024 1:53 PM [facility] Basophils Absolute 0.02 0.00 - 0.20 K/mcL LAB HEMETOLOGY METHOD 07/23/2024 1:53 PM [facility] Immature Granulocytes Absolute 0.02 0.00 - 0.03 K/mcL LAB HEMETOLOGY METHOD 07/23/2024 1:53 PM [facility] Blood Venous blood specimen / Unknown 07/23/2024 12:05 PM EDT 07/23/2024 1:38 PM EDT us Gianni Jones MD LAB BLOOD ORDERABLES Final Resu lt Performing Organization Address City/[facility]/ZIP Co de Phone Number [facility] [address] [place] [address], [place] [phone] * Alanine aminotransferase (07/23/2024 12:05 PM EDT) ALT (SGPT) 40 10 - 60 unit/L LAB CHEMISTRY METHOD 07/23/2024 4:53 PM EDT [facility] Blood Venous blood specimen / Unknown 07/23/2024 12:05 PM EDT 07/23/2024 1:38 PM EDT us Gianni Jones MD LAB BLOOD ORDERABLES Final Resu lt Performing Organization Address [facility]/ZIP Co de Phone Number [facility] [address] [place] [address], [place] [phone] * Aspartate aminotransferase (07/23/2024 12:05 PM EDT) AST (SGOT) 22 10 - 42 unit/L LAB CHEMISTRY METHOD 07/23/2024 5:09 PM EDT [facility] Blood Venous blood specimen / Unknown 07/23/2024 12:05 PM EDT 07/23/2024 1:38 PM EDT us Gianni Jones MD LAB BLOOD ORDERABLES Final Resu lt Performing Organization Address City/[facility]/ZIP Co de Phone Number [facility] [address] [place] [address], [place] [phone] * Albumin (07/23/2024 12:05 PM EDT) Albumin 3.8 3.2 - 5.0 g/dL LAB CHEMISTRY METHOD 07/23/2024 4:53 PM EDT [facility] Blood Venous blood specimen / Unknown 07/23/2024 12:05 PM EDT 07/23/2024 1:38 PM EDT us Gianni Jones MD LAB BLOOD ORDERABLES Final Resu lt Performing Organization Address [facility]/ZIP Co de Phone Number [facility] [address] [place] [address], [place] [phone] * Creatinine (07/23/2024 12:05 PM EDT) Creatinine 0.82 0.70 - 1.30 mg/dL LAB CHEMISTRY METHOD 07/23/2024 4:53 PM EDT [facility] eGFR 93 >=60 mL/min/1. 73m2 LAB CHEMISTRY METHOD 07/23/2024 4:53 PM EDT [facility] Comment:Calculation based on the??Chronic Kidney Disease Epidemiology Collaboration (CKD-EPI) equation refit??without adjustment for race. Blood Venous blood specimen / Unknown 07/23/2024 12:05 PM EDT 07/23/2024 1:38 PM EDT us Gianni Jones MD LAB BLOOD ORDERABLES Final Resu lt Performing Organization Address City/[facility]/ZIP Co de Phone Number [facility] [address] [place] [address], [place] [phone] * C-reactive protein (07/23/2024 12:05 PM EDT) C-Reactive Protein <0.29 <=0.50 mg/dL LAB CHEMISTRY METHOD 07/23/2024 4:53 PM EDT [facility] Blood Venous blood specimen / Unknown 07/23/2024 12:05 PM EDT 07/23/2024 1:38 PM EDT us Gianni Jones MD LAB BLOOD ORDERABLES Final Resu lt Performing Organization Address [facility]/ZIP Co de Phone Number [facility] [address] [place] [address], [place] [phone] * Sedimentation rate (07/23/2024 12:05 PM EDT) Sed Rate 11 0 - 20 mm/hr LAB HEMETOLOGY METHOD 07/23/2024 2:16 PM EDT [facility] Blood Venous blood specimen / Unknown 07/23/2024 12:05 PM EDT 07/23/2024 1:38 PM EDT us Gianni Jones MD LAB BLOOD ORDERABLES Final Resu lt Performing Organization Address [facility] Co de Phone Number [facility] [address] [place] [address], documented in this encounter Visit Diagnoses Diagnosis Rheumatoid arthritis, unspecified (CMS/HCC V24, CMS/HCC V28) documented in this encounter Care Teams Librarian Head Relationship Specialty Start Date End Date Don Escalante MD [address] [place] [id number] PCP - General Internal Medicine 04/02/24 documented as of this encounter
--- OUTSIDE RECORDS SUMMARY | 2024-08-16 12:41 | XMS_ITS | Clinical Summary ---
Author Organization [facility] Address [address] [address] Phone Care Team Providers Care Pellet Preparation Operator Name Role Phone Don Escalante MD Primary Care Provider [phone] Allergies Active Allergy Reactions Criticality Noted Date [...] this topic Medical Devices Implanted Type Area [employer] Consultant Device Identifier Shelf Expiration Date Model / Serial / Lot Spine Lonny 5.5x45mm Expedium Titanium Curved Lordotic Line Thoracolumbar - [id number] Implanted:Qty: 2 on 09/05/2023 by Mega Peterson MD at [facility] NODATA N/A: Back [employer] DEPUY SYNTHES SPINE 09/05/2023 [id number] / / Coronary Stent Pliafx Prime 5.0cc Freeze Dried - [id number] Implanted:Qty: 1 on 09/05/2023 by Mega Petreson MD at [facility] N/A: [facility] [id number] 04/07/2028 -1800-05 / [id number] / [id number] Screw Spinal 7x40mm Polyaxial Expedium Verse 5.5 - [id number] Implanted:Qty: 1 on 09/05/2023 by Mega Peterson MD at [facility] N/A: Back [employer] SPINE [id number] / / Screw Spinal 7x45mm Polyaxial Expedium Verse 5.5 - [id number] Implanted:Qty: 1 on 09/05/2023 by Mega Peterson MD at [facility] N/A: Back [employer] SPINE [id number] / / Screw Spinal 7x50mm Polyaxial Expedium Verse 5.5 - [id number] Implanted:Qty: 1 on 09/05/2023 by Mega Peterson MD at [facility] N/A: Back [employer] SPINE [id number] / / Screw Implanted:Qty: 1 on 09/05/2023 by Mega Peterson MD at [facility] N/A: Back DEPUY SPINE Depuy Spine Caps Implanted:Qty: 4 on 09/05/2023 by Mega Peterson MD at [facility] Bilater al: Back 09/05/2023 / [id number] / Depuy Spine Implanted:Qty: 1 on 09/05/2023 by Mega Peterson MD at [facility] N/A: Back 09/05/2023 / [id number] / Advance Directives For more information, please contact: [phone] (9AM - 5PM [place], Monday-Monday) Documents on File Type Date Recorded Patient Roll Over Loader Expl anation Healthcare Proxy 09/05/2023 * Full Code (Latest Code Status on File) Date Activated Date Inactivated Comments 03/28/2023 8:10 PM Question Answer Comments Code Status Confirmed With: Patient Care Teams Pellet Preparation Operator Relationship Specialty Start Date End Date Don Escalante MD [address] [place], [place] [address] [address] PCP - General Internal Medicine 01/23/23 Additional Source Comments The information contained in this document represents components of the legal health record. It is not the complete legal health record.[facility]
--- OUTSIDE RECORDS SUMMARY | 2024-08-16 12:41 | XMS_ITS | Clinical Summary ---
Author Organization [facility] [place] [address] Phone Care Team Providers Care Swing Driver Name Role Phone Don Escalante MD Primary Care Provider [phone] Allergies Active Allergy Reactions Criticality Noted Date [...] Active LORazepam (ATIVAN) 1 mg tablet TAKE 1 TABLET BY MOUTH ONCE DAILY NEEDED FOR ANXIETY. (MAX 1 TABLET PER DAY) 28 tablet 5 09/13/19 25 Active LORazepam (ATIVAN) 1 mg tablet TAKE ONE TABLET BY MOUTH ONE TIME EACH DAY IF NEEDED FOR ANXIETY, FOR UP TO 28 DAYS. MAX DAILY AMOUNT = 1MG. 28 tablet 5 07/19/19 25 Discontinued LORazepam (ATIVAN) 1 mg tablet TAKE ONE TABLET BY MOUTH ONCE DAILY NEEDED FOR ANXIETY MAX 1 TABLET PER DAY 28 tablet 5 08/16/19 25 Discontinued Active Problems Problem Noted Date Diagnosed Date Peripheral neuropathy 04/26/2024 Overview (04/26/2024): DX:Peripheral neuropathy Rheumatoid arthritis ([facility] V24, [facility] V28) 04/26/2024 Crohn's disease of colon wit hout complication ([facility] V24, [facility] V28) 04/02/2024 Idiopathic peripheral neuropathy 08/20/2019 Overview [...] (04/26/2024): DX:Coronary artery disease; COMMENT: S/p Ant VA with VFib arrest 05/01- LAD stents placed- Liberte/Vison S/p Ant VA with VFib arrest 05/01- LAD stents placed- Liberte/Vison Inflammatory polyarthropathy ([facility] V24, [facility] V28) 04/15/2005 Overview (04/26/2024): assoc with Crohn's RF Neg Methotrexate added to Remicade 12/2002 Crohn disease ([facility] V24, [facility] V28) 005 Overview (04/26/2024): with associated arthritis; [...] a possible side effect. Now following with [facility] GI- Dr De La Vega CAD (coronary artery disease) Overview (04/26/2024): DX:CAD (coronary artery disease); COMMENT: S/p Ant VA with VFib arrest 05/01- 2 LAD stents placed- Liberte/Vison Encounters Date Type Department Care Team Description 07/26/2024 Telephone Internal Medicine - [facility] [address] [place] [address] Dee Tracy MA Results 07/23/2024 11:30 AM EDT - 07/23/2024 11:59 PM EDT Hospital Encounter [facility] Infusion Center [address] 2[address] [place] [address] Amber Infante MD Crohn's disease of colon without complication ([facility] V24, [facility] V28) (Primary Dx); B12 deficiency Discharge Disposition: Home or Self Care 07/23/2024 Lab Requisition [facility] - Main Lab [address] [facility] [facility] [place] [address] Gianni Jones MD Rheumatoid arthritis, unspecified (CMS/HCC V24, [facility] V28) 07/16/2024 Telephone Internal Medicine - [facility] [address] [facility] [place] [id number] Eloisa Borges MA 06/28/2024 Telephone Internal Medicine - [address] [phone] Don Escalante MD Forms/questionnaires (Medical Clearance Form) 06/20/2024 Telephone Pediatrics - [address] [address] Don Escalante MD Referral 05/28/2024 11:00 AM EST - 05/28/2024 11:59 PM EST Hospital Encounter [facility] Infusion Center [address] 2[address] [place] [address] Amber Infante MD Crohn's disease of colon without complication ([facility] V24, [facility] V28); Rheumatoid arthritis, involving unspecified site, unspecified whether rheumatoid factor present ([facility] V24, [facility] V28); Muscle spasm; History of thyroid disease Discharge Disposition: Home or Self Care 05/28/2024 Lab Requisition [facility] - Main Lab [address] [facility] [facility] [place] [address] Gianni Jones MD Rheumatoid arthritis, unspecified ([facility] V24, [facility] V28) from Last 3 Months Immunizations Name [...] HISTORICAL HERNIA REPAIR/MARVIN; COMMENT: hernia repair at [facility] OTHER SURGICAL HISTORY 05/01/2016 PROCEDURE: ---- INCISE/DRAIN [...] treatment. COLONOSCOPY 07/17/2017 PROCEDURE: HISTORICAL COLONOSCOPY; COMMENT: [facility]; hosp for SBO; solitary ulcer mid transverse colon; 4 mm polyps ? 2 ; pathology: tubular adenomas. BOWEL RESECTION 10/09/2017 PROCEDURE: HISTORICAL BOWEL RESECTION; COMMENT: [facility]; segmental resection TC and mesh; colo-colostomy. ABDOMINAL SURGERY 03/2020 PROCEDURE: HISTORICAL ABDOMINAL SURGERY; COMMENT: lysis of adhesions at [facility] COLONOSCOPY 10/02/2020 PROCEDURE: HISTORICAL COLONOSCOPY; COMMENT: No [...] :CAD (coronary artery disease); COMMENT: S/p Ant VA with VFib arrest 05/01- 2 LAD stents [...] DX:Coron keenan artery disease; COMMENT: S/p Ant VA with VFib arrest 05/01- 2 LAD stents [...] Info) Description 09/17/2024 11:30 AM EDT Appointment [facility] Infusion Center [address] [place] [address] Health Maintenance Due Date Last [...] of2 resultswithin the time period is included. [facility] Extra Tube Hold for add-ons. 07/23/2024 3:01 PM EDT [facility] Comment:Auto resulted. Blood Venous blood specimen / Unknown 07/23/2024 12:05 PM EDT 07/23/2024 1:38 PM EDT us Gianni Jones MD LAB BLOOD ORDERABLES Final Resu lt [facility] [address] [place] [address], * (ABNORMAL) CBC auto differential (07/23/2024 12:05 PM EDT) Only the most recent of2 resultswithin the time period is included. [facility] WBC 6.6 4.8 - 10.8 K/mcL LAB HEMETOLOGY METHOD 07/23/2024 1:53 PM EDT [facility] RBC 3.80(L) 4.50 - 5.50 M/mcL LAB HEMETOLOGY METHOD 07/23/2024 1:53 PM EDT [facility] Hemoglobin 13.3(L) 13.5 - 17.5 g/dL LAB HEMETOLOGY METHOD 07/23/2024 1:53 PM EDT [facility] Hematocrit 37.9(L) 42.0 - 54.0 % LAB HEMETOLOGY METHOD 07/23/2024 1:53 PM EDT [facility] MCV 100.8(H) 79.0 - 98.0 FL LAB HEMETOLOGY METHOD 07/23/2024 1:53 PM EDT [facility] MCH 35.4(H) 27.0 - 32.0 pcg LAB HEMETOLOGY METHOD 07/23/2024 1:53 PM EDT [facility] MCHC 35.1 32.0 - 37.0 g/dL LAB HEMETOLOGY METHOD 07/23[facility]2024 [facility] RDW 12.8 11.0 - 15.0 % LAB HEMETOLOGY METHOD 07/23/2024 1:53 PM EDT [facility] Platelets 233 130 - 400 K/mcL LAB HEMETOLOGY METHOD 07/23/2024 1:53 [facility] MPV 9.8 7.0 - 11.0 FL LAB HEMETOLOGY METHOD 07/23/2024 1:53 [facility] NRBC 0.0 <1.0 % LAB HEMETOLOGY METHOD 07/23/2024 1:53 [facility] NRBC Absolute 0.00 <0.10 K/mcL LAB HEMETOLOGY METHOD 07/23/2024 1:53 [facility] Neutrophils Relative 67.8 % LAB HEMETOLOGY METHOD 07/23/2024 1:53 PM [facility] Lymphocytes Relative 21.9 % LAB HEMETOLOGY METHOD 07/23/2024 1:53 PM EDT [facility] Monocytes Relative 7.0 % LAB HEMETOLOGY METHOD 07/23/2024 1:53 PM EDT [facility] Eosinophils Relative 2.7 % LAB HEMETOLOGY METHOD 07/23/2024 1:53 [facility] Basophils Relative 0.3 % LAB HEMETOLOGY METHOD 07/23/2024 1:53 [facility] Immature Granulocytes Relative 0.3 % LAB HEMETOLOGY METHOD 07/23/2024 1:53 PM EDT [facility] Neutrophils Absolute 4.46 1.50 - 7.00 K/mcL LAB HEMETOLOGY METHOD 07/23/2024 1:53 PM EDT [facility] Lymphocytes Absolute 1.44 1.00 - 5.00 K/mcL LAB HEMETOLOGY METHOD 07/23/2024 1:53 PM EDT [facility] Monocytes Absolute 0.46 0.20 - 1.00 K/mcL LAB HEMETOLOGY METHOD 07/23/2024 1:53 PM EDT [facility] Eosinophils Absolute 0.18 0.00 - 0.50 K/mcL LAB HEMETOLOGY METHOD 07/23/2024 1:53 PM EDT [facility] Basophils Absolute 0.02 0.00 - 0.20 K/mcL LAB HEMETOLOGY METHOD 07/23/2024 1:53 PM EDT [facility] Immature Granulocytes Absolute 0.02 0.00 - 0.03 K/mcL LAB HEMETOLOGY METHOD 07/23/2024 1:53 PM EDT [facility] Blood Venous blood specimen / Unknown 07/23/2024 12:05 PM EDT 07/23/2024 1:38 PM EDT us Gianni Jones MD LAB BLOOD ORDERABLES Final Resu lt [facility] [address] [place] [address], * Creatinine (07/23/2024 12:05 PM EDT) Only the most recent of2 resultswithin the time period is included. Creatinine 0.82 0.70 - 1.30 mg/dL LAB CHEMISTRY METHOD 07/23/2024 4:53 PM EDT [facility] eGFR 93 >=60 mL/min/1. 73m2 LAB CHEMISTRY METHOD 07/23/2024 4:53 PM EDT [facility] Comment:Calculation based on the??Chronic Kidney Disease Epidemiology Collaboration (CKD-EPI) equation refit??without adjustment for race. Blood Venous blood specimen / Unknown 07/23/2024 12:05 PM EDT 07/23/2024 1:38 PM EDT us Gianni Jones MD LAB BLOOD ORDERABLES Final Resu lt Performing Organization Address City/[facility]/ZIP Co de Phone Number [facility] [address] [place] [address], [place] [phone] * Sedimentation rate (07/23/2024 12:05 PM EDT) Only the most recent of2 resultswithin the time period is included. Sed Rate 11 0 - 20 mm/hr LAB HEMETOLOGY METHOD 07/23/2024 2:16 PM EDT [facility] Blood Venous blood specimen / Unknown 07/23/2024 12:05 PM EDT 07/23/2024 1:38 PM EDT us Gianni Jones MD LAB BLOOD ORDERABLES Final Resu lt Performing Organization Address [facility] Co de Phone Number [facility] [address] [place] [address], [place] [phone] * C-reactive protein (07/23/2024 12:05 PM EDT) Only the most recent of2 resultswithin the time period is included. C-Reactive Protein <0.29 <=0.50 mg/dL LAB CHEMISTRY METHOD 07/23/2024 4:53 PM EDT [facility] Blood Venous blood specimen / Unknown 07/23/2024 12:05 PM EDT 07/23/2024 1:38 PM EDT us Gianni Jones MD LAB BLOOD ORDERABLES Final Resu lt Performing Organization Address [facility]/ZIP Co de Phone Number [facility] [address] [place] [address], [place] [phone] * Alanine aminotransferase (07/23/2024 12:05 PM EDT) Only the most recent of2 resultswithin the time period is included. ALT (SGPT) 40 10 - 60 unit/L LAB CHEMISTRY METHOD 07/23/2024 4:53 PM EDT [facility] Blood Venous blood specimen / Unknown 07/23/2024 12:05 PM EDT 07/23/2024 1:38 PM EDT us Gianni Jones MD LAB BLOOD ORDERABLES Final Resu Performing Organization Address [facility] de Phone Number [facility] [address] [place] [address], * Aspartate aminotransferase (07/23/2024 12:05 PM EDT) Only the most recent of2 resultswithin the time period is included. AST (SGOT) 22 10 - 42 unit/L LAB CHEMISTRY METHOD 07/23/2024 5:09 PM EDT [facility] Blood Venous blood specimen / Unknown 07/23/2024 12:05 PM EDT 07/23/2024 1:38 PM EDT us Gianni Jones MD LAB BLOOD ORDERABLES Final Resu lt Performing Organization Address [facility] Co de Phone Number [facility] [address] [place] [address], [place] [phone] * Albumin (07/23/2024 12:05 PM EDT) Only the most recent of2 resultswithin the time period is included. Albumin 3.8 3.2 - 5.0 g/dL LAB CHEMISTRY METHOD 07/23/2024 4:53 PM EDT [facility] Blood Venous blood specimen / Unknown 07/23/2024 12:05 PM EDT 07/23/2024 1:38 PM EDT Gianni Jones MD LAB BLOOD ORDERABLES Final Resu lt Performing Organization Address [facility]/ZIP Co de Phone Number [facility] [address] [place] [address], [place] [phone] * (ABNORMAL) Vitamin B12 and folate (07/23/2024 12:02 PM EDT) Pathologist [facility] Vitamin B-12 411 250 - 900 pcg/mL LAB CHEMISTRY METHOD 07/23/2024 5:23 PM EDT [facility] Folate >20.0(H) 2.8 - 17.0 ng/ml LAB CHEMISTRY METHOD 07/23/2024 5:23 PM EDT [facility] Blood Venous blood specimen / Unknown Venipuncture / Unknown 07/23/2024 12:02 PM EDT 07/23/2024 1:38 PM EDT Don Escalante MD LAB BLOOD ORDERABLES Final Resu lt Performing Organization Address [facility] Co de Phone Number [facility] [address] [place] [address], [place] [phone] * Lavender tube (05/28/2024 2:38 PM EST) Pathologist [facility] Extra Tube Hold for add-ons. 05/28/2024 5:01 PM EST [facility] Comment:Auto resulted. Blood Venous blood specimen / Unknown 05/28/2024 2:38 PM EST 05/28/2024 3:15 PM EST us Gianni Jones MD LAB BLOOD ORDERABLES Final Resu lt Performing Organization Address City/[facility]/ZIP Co de Phone Number [facility] [address] [place] [address], [place] [phone] * Thyroid stimulating hormone with reflex to free t4 and free t3 (05/28/2024 2:34 PM EST) [facility] TSH 0.90 0.40 - 4.00 mcIU/mL LAB CHEMISTRY METHOD 05/28/2024 4:04 PM EST [facility] Blood Blood sample taken from central line / Unknown Existing Catheter / Unknown 05/28/2024 2:34 PM EST 05/28/2024 3:16 PM EST Don Escalante MD LAB BLOOD ORDERABLES Final Resu lt [facility] [address] [place] [address], * Magnesium (05/28/2024 2:34 PM EST) [facility] Magnesium 2.1 1.9 - 2.6 mg/dL LAB CHEMISTRY METHOD 05/28/2024 3:48 PM EST [facility] Blood Blood sample taken from central line / Unknown Existing Catheter / Unknown 05/28/2024 2:34 PM EST 05/28/2024 3:16 PM EST Don Escalante MD LAB BLOOD ORDERABLES Final Resu lt [facility] [address] [place] [address], [place] [phone] * Falls Risk Assessment (07/31/2023) [facility] Falls Risk Assessment Abstracted Historical Provider HEALTH MAINTENANCE Final Result * Depression Screening (07/31/2023) Pathologist [facility] HM Depression Screening Abstracted Historical Provider HEALTH MAINTENANCE Final Result * Colonoscopy (10/02/2020) Colonoscopy No Interpretation , Abstracted Anatomical Region Laterality Modality Other Historical Provider HEALTH MAINTENANCE Final Result * (ABNORMAL) Lipid panel (12/08/2017) Pathologist [facility] LDL/HDL Ratio 3 0 - 4 Triglycerides 162(A) 0 - 150 mg/dL Cholesterol 119 0 - 200 mg/dL HDL 40 >=40 mg/dL LDL Cholesterol 47 0 - 100 mg/dL Blood Venous blood specimen / Unknown Historical Provider LAB BLOOD ORDERABLES Naina l Result * Hepatitis C Screening (01/20/2005) Pathologist [facility] Hepatitis C Screening Abstracted Historical Provider HEALTH MAINTENANCE Edited Result - Final from Last 3 Months or Most Recently Relevant to Health Maintenance Insurance [facility]ICARE [facility] Advance Directives Documents on File Type Date Recorded Patient Hopper Feeder Expl anation Health Care Decision (hx) 01/05/2010 [...] (hx) 01/05/2010 AD WANG DIRECTIVE Care Teams Swing Driver Relationship Specialty Start Date End Date Don Escalante MD [address] [place] [address] PCP - General Internal Medicine 04/02/24
--- OUTSIDE RECORDS SUMMARY | 2024-08-16 12:41 | XMS_ITS | Encounter Summary ---
Author Organization [facility] Address [address] [employer] [facility] [address] [place] [address] Phone Care Team Providers Care Supervisor Remelt Name Role Phone Don Escalante MD Primary Care Provider [phone] Encounter Details Date Type Department Care Team (Late st Contact Info) Description 09/05/2023 Procedure Pass [facility] [address] [place] [address] Social History Tobacco Use Types Packs/Day Years [...] documented as of this encounter Care Teams Supervisor Remelt Relationship Specialty Start Date End Date Don Escalante MD [address] [place] [address] PCP - General Internal Medicine 01/23/23 documented as of this encounter Additional Source Comments The information contained in this document represents components of the legal health record. It is not the complete legal health record.[facility]
--- OUTSIDE RECORDS SUMMARY | 2024-08-16 12:41 | XMS_ITS | Encounter Summary ---
Author Organization [facility] Address [address] [employer] [facility] [address] [place] [address] Phone Care Team Providers Care Animal Surgeon Name Role Phone Don Escalante MD Primary Care Provider [phone] Encounter Details Date Type Department Care Team (Late st Contact Info) Description 09/05/2023 Procedure Pass [facility] [address] [place] [address] Social History Tobacco Use Types Packs/Day Years [...] documented as of this encounter Care Teams Animal Surgeon Relationship Specialty Start Date End Date Don Escalante MD [address] [place] [address] PCP - General Internal Medicine 01/23/23 documented as of this encounter Additional Source Comments The information contained in this document represents components of the legal health record. It is not the complete legal health record.[facility]
--- OUTSIDE RECORDS SUMMARY | 2024-08-16 12:41 | XMS_ITS | Encounter Summary ---
Author Organization [facility] Address [address] [address] Phone Care Team Providers Care Passenger Locomotive Engineer Name Role Phone Don Escalante MD Primary Care Provider [phone] Encounter Details Date Type Department Care Team ([facility] st Contact Info) Description 03/28/2023 Procedure Pass [facility] Periop [address] [place] [address] Social History Tobacco Use Types Packs/Day Years [...] documented as of this encounter Care Teams Passenger Locomotive Engineer Relationship Specialty Start Date End Date Don Escalante MD [address] [place] [address] PCP - General Internal Medicine 01/23/23 documented as of this encounter Additional Source Comments The information contained in this document represents components of the legal health record. It is not the complete legal health record.[facility]
--- OUTSIDE RECORDS SUMMARY | 2024-08-16 12:41 | XMS_ITS | Encounter Summary ---
Author Organization [facility] Address [address] [facility] [address] [place] [address] Phone Care Team Providers Care Linseed Oil Refiner Name Role Phone Don Escalante MD Primary Care Provider [phone] Encounter Details Date Type Department Care Team (Late st Contact Info) Description 02/16/2023 Telephone [facility] Department of Neurosurgery [address] [place] [address] Aniket Rome [address] [place] [address] [email or web address] Social History Tobacco Use Types Packs/Day Years [...] documented as of this encounter Care Teams Linseed Oil Refiner Relationship Specialty Start Date End Date Don Escalante MD [address] [place] [address] PCP - General Internal Medicine 01/23/23 documented as of this encounter Additional Source Comments The information contained in this document represents components of the legal health record. It is not the complete legal health record.[facility]
== END 2024-08-16 12:28 | disposition home or self-care (01) ==
LOC: HO.PMC 11:48
PROVIDERS: PCP Internal Medicine; Visit Provider Internal Medicine
DX: M25.511 Pain in right shoulder (principal)
CPT/HCPCS: 20605

== ENCOUNTER → 2024-08-16 11:47 | Outpatient (BNVA) | payer MEDICARE, SELFPAY | PROVIDERS: PCP Internal Medicine; Visit Provider Internal Medicine | DX: M25.511 Pain in right shoulder (principal) | CPT/HCPCS: 20605 ==

== ENCOUNTER 2024-11-22 11:11 | Outpatient (AMB) | payer MEDICARE, SELFPAY ==
--- OUTSIDE RECORDS SUMMARY | 2024-02-06 10:56 | XMS_ITS | Encounter Summary ---
Author Organization [facility] Address [address] [place] [address] Care Team Providers Care Gasoline Dragline Operator Name Role Phone Don Escalante MD Primary Care Provider [phone] Encounter Details Date Type Department Care Team (Late st Contact Info) Description 02/06/2024 10:56 AM EDT Hospital Encounter TH HISTORIC ENCOUNTERS EASTERN CONVERSION ONLY Social History Tobacco Use Types Packs/Day Years Used Date Smoking Tobacco: Never Smokeless Tobacco: Never Alcohol Use Standard Drinks/Week Comments No 0 (1 standard drink = 0.6 oz pur e alcohol) Interpersonal Safety Answer Date Record ed Physical Abuse 10/15/2024 Verbal Abuse 10/15/2024 Sex and Gender Information Value Date Recorded Sex Assigned at Male 05/28/2024 10:57 AM EST Legal Sex Male 6:21 AM EST Gender Identity Male 05/28/2024 10:57 AM EST Sexual Orientation Straight 05/28/2024 10 :57 AM EST documented as of this encounter Last Filed Vital Signs Vital Sign Reading Time Taken Comments Blood Pressure - - Pulse - - Temperature - - Respiratory Rate - - Oxygen Saturation - - Inhaled Oxygen Concentration - - Weight 91.4 kg (201 lb 6.6 oz) 08/22/2023 11:03 AM EDT Height 177.8 cm (5' 10 ) 08/22/2023 11:03 AM EDT Body Mass Index 28.9 08/22/2023 11:03 AM EDT documented in this encounter Progress Notes * Historical, Notes Results - 02/06/2024 11:00 AM EDT Pt arrives today for Renflexis infusion. Pt reports feeling well overall just tired. Pt reports feeling better s/p back surgeries. Pt had an MRI of the shoulder and reports he has ripped tendons. Charlette follow up donna TORRES. Medications, allergies, and assessment reviewed. RIGHT upper chest port accessed per protocol. Positive blood return noted. Pt with labs slips from outside drs. Labs drawn and sent.Medication released to pharmacy. Pt refused premeds. Renflexis 600mg(x2) infused over 1 hour each. Pt tolerated well. Port flushed and deaccessed without incident. Appointment in place for next treatment. Stable at discharge. documented in this encounter Plan of Treatment Upcoming Encounters Date Type Department Care Team (Late st Contact Info) Description 12/09/2024 12:45 PM EDT Appointment [facility] [address] [place] [address] 12/13/2024 10:40 AM EDT Office Visit Gastroenterology - [place] [facility] [address] [facility] [address] [place] [phone] Gin Pineda, SHMUEL [address] [facility] [address] [place] [address] 01/10/2025 11:30 AM EDT Appointment [facility] [address] [facility] 2nd [place] [phone] documented as of this encounter Visit Diagnoses Not on filedocumented in this encounter Care Teams Gasoline Dragline Operator Relationship Specialty Start Date End Date Don Escalante MD PCP - General Internal Medicine 05/11/21 04/01/24 documented as of this encounter
--- OUTSIDE RECORDS SUMMARY | 2024-11-22 11:18 | XMS_ITS | Clinical Summary ---
Author Organization [facility] Address [address] [place] [address] Care Team Providers Care Tin Tie Machine Operator Automatic Name Role Phone Don Escalante MD Primary Care Provider Allergies Active Allergy Reactions Criticality Noted Date [...] 68 02/06/2024 11:02 AM EDT Temperature 36.7 C (98 F) 02/06/2024 11:02 AM EDT Respiratory Rate 18 [...] (2 - Td or Tdap) 08/27/2020 08/27/2010 Influenza Vaccine (#1) 2024 , 02/11/2020, 01/31/2018, Additional history exists RSV Adult > 60+ Yrs or (1 - 1-dose 75+ series) 2025 Pneumococcal Vaccine Completed 04/02/2018, 07/15/2014, 03/10/2010 Hepatitis B Vaccines Aged Out No long er eligible based on patient's age to complete this topic RSV Ped < 20 months Aged Out No longe r eligible based on patient's age to complete this topic Care Teams Tin Tie Machine Operator Automatic Relationship Specialty Start Date End Date Don Escalante MD [address] [facility] [place] [address] PCP - General Internal Medicine 06/27/23
--- OUTSIDE RECORDS SUMMARY | 2024-11-22 11:18 | XMS_ITS | Encounter Summary ---
Author Organization [facility] Address [address] [employer] [facility] [address] [place] [address] Phone Care Team Providers Care Shampoo Technician Name Role Phone Don Escalante MD Primary Care Provider [phone] Encounter Details Date Type Department Care Team (Late st Contact Info) Description 03/28/2023 Procedure Pass [facility] [address] [place] [address] Social History Tobacco Use Types Packs/Day Years [...] Assigned at Male 01/23/2023 2:12 PM EDT Legal Sex Male 11:57 AM EDT Gender Identity Male 01/23/2023 2:12 PM [...] documented as of this encounter Care Teams Shampoo Technician Relationship Specialty Start Date End Date Don Escalante MD [address] [place] [address] PCP - General Internal Medicine 01/23/23 documented as of this encounter Additional Source Comments The information contained in this document represents components of the legal health record. It is not the complete legal health record.[facility]
--- OUTSIDE RECORDS SUMMARY | 2024-11-22 11:18 | XMS_ITS ---
Author Name [facility] Organization Unknown Care Team Organization Name Specialty Phone Email Start Date End Da te [facility] Salvatore Rahman Primary Care 12/29/202211/22 [facility] PAMELA Sifuentes Primary Care 08/29/202211/22 [facility] Rahul Christopher Primary Care 06/29/20222023 [facility] Don Escalante Primary Care 03/01/20222023
--- NOTE | 2024-11-26 11:14 | A.OFFVIS_ITS ---
Intake Visit Reasons: Left Shoulder Injection Allergies amlodipine (From Norvasc) Allergy (Unknown, Verified 10/28/24 13:05) BLISTERS azathioprine (From IMURAN) Allergy (Unknown, Verified 10/28/24 13:05) PARANOIA,SEVERE REACTION,N/V oxycodone (From PERCOCET) Allergy (Unknown, Verified 10/28/24 13:05) ITCHING ALL OVER HPI HPI Left Shoulder Injection: Details: Patient presents for scheduled procedure. Denies any recent cough, cold, infection, fever or other significant changes in medical history since last office visit. Office Procedures AMB Joint Injection/Aspiration Joint Injection/Aspiration Primary Site: left shoulder (subacromial bursa) Injected: 40 mg of, Kenalog, with 3 mL of (ropivacaine 0.25% ) and in the subcromial space Approach Used: other Procedure: The patient tolerated the procedure well Coding 96921 - Glenohumeral/Tronchanteric Bursa/Intraarticular Procedure code (CPT) selection complete Assessment & Plan Assessment & Plan (1) Left shoulder pain: Code(s): M25.512 - Pain in left shoulder Category: Medical Plan Patient is status post left subacromial bursa injection. Patient tolerated procedure well and was discharged home in stable condition with discharge instructions. All questions were answered. We will follow-up via telephone or in clinic to assess response to therapy. A follow-up appointment was made during today's visit. Coding Level of Care Code Procedure Only Diagnoses Left shoulder pain M25.512 CPT Codes Coding - Joint 7: 90310 - Glenohumeral/Tronchanteric Bursa/Intraarticular ([id number])
== END 2024-11-22 11:46 | disposition home or self-care (01) ==
PROVIDERS: PCP Internal Medicine; Visit Provider Internal Medicine
DX: M25.512 Pain in left shoulder (principal)
CPT/HCPCS: 20610

== ENCOUNTER → 2024-11-22 11:11 | Outpatient (BNVA) | payer MEDICARE, SELFPAY | PROVIDERS: PCP Internal Medicine; Visit Provider Internal Medicine | DX: M25.512 Pain in left shoulder (principal) | CPT/HCPCS: 20610; J2795; J3301 ==